=== PATIENT | male | born 1940 | race Caucasian/White ===

== ENCOUNTER 2016-12-05 20:02 | Emergency (ER) | payer OTHER ==
[~2016-12-05] VITALS: Ht 157.5 cm; Wt 117.4 kg
[~2016-12-05 20:02] MED LIST: ACET-1256 PO; ALBUAER19 INH; AMLO-110 PO; APR50 PO; ASPI81TA28 PO; ATOR-24 PO; CPT50 PO; DOCU100C31 PO; FINA5TAB PO; HYDR-5688 PO; ISOS30TA35 PO; LBT/200 PO; MTML PO; NRV5 PO; NTRGSL/4 UT; OPTOPS OP; PANT40TA PO; POLY335019 PO; TAMS0.4C38 PO; ZNTT/150 PO
[2016-12-05 20:08] VITALS: TEMP 36.5; Ht 157.5 cm; Wt 117.4 kg
[2016-12-05 21:04] LABS: BASO % 1.1 %; BASO ABS # 0.05 K/uL (0-0.2); COMPLETE YES; EOS % 7.5 %; HEMATOCRIT 36.5 % (42-52); IG% 0.2 %; LYMPH % 22.5 %; LYMPH ABS # 1.02 K/uL (1.2-3.4); MEAN CELL VOLUME 90.1 fL (80-100); MEAN CORPUSCULAR HEMOGLOBIN 30.1 pg (25-34); MEAN CORPUSCULAR HGB CONC 33.4 g/dl (32-36); MEAN PLATELET VOLUME 9.6 fL (7.4-10.4); MONO % 15.9 %; NEUT % 52.8 %; PLATELET COUNT 179 K/uL (130-400); RED BLOOD COUNT 4.05 M/uL (4.7-6.1); WHITE BLOOD COUNT 4.53 K/uL (4.8-10.8)
[2016-12-05 21:11] LABS: CALCIUM 8.8 mg/dl (8.5-10.1); CREATININE 0.94 mg/dl (0.60-1.40); POTASSIUM 4.1 mmol/L (3.5-5.1)
--- NOTE | 2016-12-05 21:16 | DIAGNOSTIC IMAGING REPORT ---
CHEST ONE VIEW PORTABLE CLINICAL HISTORY: Dizziness COMPARISON STUDY: 04/23/2016 FINDINGS: The heart is mildly enlarged.. There is a left subclavian single chamber central venous pacemaker. There is a dilated right pulmonary artery suggestive of pulmonary arterial hypertension. There is no focal pulmonary consolidation. Underlying emphysema is suspected. There is central vascular prominence without evidence of overt failure IMPRESSION: 1. Emphysema 2. Enlarged pulmonary artery suggestive of pulmonary arterial hypertension 3. No overt failure. 4. No evidence of lobar consolidation 5. Mild central vascular prominence without evidence of overt failure Electronically signed by: Preston Pérez M.D. 12/05/2016 9:15 PM Dictated Date/Time: 12/05/2016 9:11 PM
--- NOTE | 2016-12-05 21:19 | DIAGNOSTIC IMAGING REPORT ---
CT HEAD WITHOUT CONTRAST (CT) CLINICAL HISTORY: Dizziness COMPARISON STUDY: 10/28/2015 TECHNIQUE: Axial CT of the brain is performed from the vertex to the skull base. IV contrast was not administered for this examination. CT DOSE: 537.48 mGy.cm FINDINGS: No intra or extra-axial mass lesions are visualized. There is no CT evidence of acute cortical infarction. There is no evidence of midline shift. There is no acute hemorrhage. No calvarial fractures are visualized. There is stable left vertebral artery and internal carotid artery calcifications. There are mild white matter hypodensities likely on a small vessel basis. There is no evidence of pathologic ventricular dilatation. There is no evidence of acute sinusitis IMPRESSION: No acute intracranial findings Electronically signed by: Preston Pérez M.D. 12/05/2016 9:17 PM Dictated Date/Time: 12/05/2016 9:16 PM
[2016-12-05 23:10] VITALS: BP 153/100; PULSE 74; O2SAT 95
--- NOTE | 2016-12-06 02:13 | EMERGENCY ROOM VISIT NOTE ---
History Report prepared by Aliya: Adam Lester Under the Supervision of: Dr. Saud Anthony D.O. First contact with patient: 20:41 Chief Complaint: ILLNESS Stated Complaint: GENERAL ILLNESS History of Present Illness The patient is a 76 year old male who presents to the Emergency Room from [facility] with complaints of high blood pressure readings. The patient states that he was sent to the emergency department today due to high blood pressure readings that were taken at [facility] shortly prior to arrival. He claims that when his blood pressure goes up his blood sugar goes down and he gets dizzy. The patient's blood sugars were in the 80-90's today and he was dizzy today. He describes his dizziness as himself spinning. The patient had a normal bowel movement two hours ago. He denies change in vision, fevers, chest pain, shortness of breath, nausea, vomiting, diarrhea, pain with urination, and melena. 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 A total of 10 systems reviewed and were otherwise negative. 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 (21) TIA (transient ischemic attack) (22) Ventral hernia Surgical Problems: (1) H/O esophagogastroduodenoscopy Family History Hypertension Social History Smoking Status: Former Smoker Alcohol Use: none Drug Use: none Marital Status: Housing Status: lives with family Occupation Status: retired Current/Historical Medications Scheduled Acetaminophen (Tylenol), 1,000 MG PO PRN UD Amlodipine Besylate (Amlodipine Besylate), 10 MG PO DAILY@0900 Aspirin (Aspirin Ec), 81 MG PO DAILY Atorvastatin (Lipitor), 40 MG PO QPM Captopril (Capoten), 50 MG PO TID Docusate Sodium (Docusate Sodium), 100 MG PO BID Finasteride (Proscar), 5 MG PO DAILY Hydralazine HCl (Hydralazine HCl), 50 MG PO TID Isosorbide Mononitrate Ext Rel (Imdur Ext Rel), 60 MG PO QAM Labetalol Hcl (Normodyne), 200 MG PO BID Nitroglycerin (Nitrostat), 0.4 MG UT PRN Pantoprazole (Protonix), 40 MG PO DAILY Polyethylene Glycol 3350 (Miralax), 17 GM PO DAILY Psyllium (Konsyl), 1 PKT PO DAILY Ranitidine (Zantac), 150 MG PO BID Tamsulosin Hcl (Flomax), 0.4 MG PO DAILY Scheduled PRN Albuterol Inhaler (Ventolin Inhaler), 2 PUFFS INH QID PRN for SOB/Wheezing Cromolyn Sodium (Ophth) (Opticrom Oph), 1 DROPS OP QID PRN for allergies or itching Hydrocodone/Acetaminophen 5MG/325MG ([place] 5MG/325MG), 1 TAB PO Q4 PRN for Pain Allergies Coded Allergies: Morphine (Verified Allergy, Intermediate, RASH, 12/05/16) PRURITUS [place] (Verified Allergy, Intermediate, Itchy rash, 12/05/16) Oxycodone (Verified Allergy, Intermediate, RASH, 12/05/16) PRURITUS Penicillins (Verified Allergy, Intermediate, HIVES, 12/05/16) Cantaloupe (Verified Allergy, Mild, ITCHY FACE AND BACK, 12/05/16) ITCHY FACE AND BACK Chocolate (Verified Allergy, Mild, NAUSEA, 12/05/16) [place] (Verified Allergy, Mild, ITCHY FACE AND BACK, 12/05/16) Naproxen (Verified Allergy, Unknown, ., 12/05/16) Verapamil (Verified Allergy, Unknown, 12/05/16) White Fish (Verified Allergy, Unknown, CATFISH, 12/05/16) Sulfa Antibiotics (Verified Adverse Reaction, Intermediate, RASH, 12/05/16) Both legs became very swollen and red Furosemide (Unverified Adverse Reaction, Unknown, CAN'T VOID, 12/05/16) Hydrochlorothiazide (Unverified Adverse Reaction, Unknown, CAN'T VOID, 12/05) Physical Exam Vital Signs Date Time Temp Pulse Resp B/P Pulse Ox O2 Delivery O2 Flow Rate FiO2 12/05/16 23:10 74 17 153/100 95 12/05/16 21:49 81 18 157/95 94 Room Air 12/05/16 20:08 36.5 65 22 170/92 95 Room Air Physical Exam GENERAL: Sitting up in bed, hard of hearing. Alert, well appearing, well nourished, no distress, non-toxic EYE EXAM: normal conjunctiva, PERRL and EOM's intact OROPHARYNX: no exudate, no erythema, lips, buccal mucosa, and tongue normal and mucous membranes are moist NECK: supple, no nuchal rigidity, no adenopathy, non-tender LUNGS: Clear to auscultation. Normal chest wall mechanics HEART: no murmurs, S1 normal and S2 normal ABDOMEN: abdomen soft, non-tender, normo-active bowel sounds, no masses, no rebound or guarding. BACK: Back is symmetrical on inspection and there is no deformity, no midline tenderness, no CVA tenderness. SKIN: no rashes and no bruising UPPER EXTREMITIES: upper extremities are grossly normal. LOWER EXTREMITIES: No pitting edema. NEURO EXAM: Normal sensorium, cranial nerves II-XII intact, normal speech, no weakness of arms, no weakness of legs. No drift. Finger to nose intact. Gross sensation intact. Medical Decision & Procedures ER Provider Diagnostic Interpretation: Radiology results as stated below per my review and the radiologist's interpretation: CHEST ONE VIEW PORTABLE CLINICAL HISTORY: Dizziness COMPARISON STUDY: 04/23/2016 FINDINGS: The heart is mildly enlarged.. There is a left subclavian single chamber central venous pacemaker. There is a dilated right pulmonary artery suggestive of pulmonary arterial hypertension. There is no focal pulmonary consolidation. Underlying emphysema is suspected. There is central vascular prominence without evidence of overt failure IMPRESSION: 1. Emphysema 2. Enlarged pulmonary artery suggestive of pulmonary arterial hypertension 3. No overt failure. 4. No evidence of lobar consolidation 5. Mild central vascular prominence without evidence of overt failure Electronically signed by: Preston Pérez M.D. 12/05/2016 9:[address] HEAD WITHOUT CONTRAST (CT) CLINICAL HISTORY: Dizziness COMPARISON STUDY: 10/28/2015 TECHNIQUE: Axial CT of the brain is performed from the vertex to the skull base. IV contrast was not administered for this examination. CT DOSE: 537.48 mGy.cm FINDINGS: No intra or extra-axial mass lesions are visualized. There is no CT evidence of acute cortical infarction. There is no evidence of midline shift. There is no acute hemorrhage. No calvarial fractures are visualized. There is stable left vertebral artery and internal carotid artery calcifications. There are mild white matter hypodensities likely on a small vessel basis. There is no evidence of pathologic ventricular dilatation. There is no evidence of acute sinusitis IMPRESSION: No acute intracranial findings Electronically signed by: Preston Pérez M.D. 12/05/2016 9:17 PM Dictated Date/Time: 12/05/2016 9:16 PM PORTABLE AP UPRIGHT CHEST X-RAY: No focal infiltrate or pneumothorax. Laboratory Results 12/05/16 20:20 Red Blood Count 4.05, Mean Corpuscular Volume 90.1, Mean Corpuscular Hemoglobin 30.1, Mean Corpuscular Hemoglobin Concent 33.4, Mean Platelet Volume 9.6, Neutrophils (%) (Auto) 52.8, Lymphocytes (%) (Auto) 22.5, Monocytes (%) (Auto) 15.9, Eosinophils (%) (Auto) 7.5, Basophils (%) (Auto) 1.1, Neutrophils # (Auto ) 2.39, Lymphocytes # (Auto) 1.02, Monocytes # (Auto) 0.72, Eosinophils # (Auto ) 0.34, Basophils # (Auto) 0.05 12/05/16 20:20 Test 12/05/16 20:20 White Blood Count 4.53 K/uL (4.8-10.8) Red Blood Count 4.05 M/uL (4.7-6.1) Hemoglobin 12.2 g/dL (14.0-18.0) Hematocrit 36.5 % (42-52) Mean Corpuscular Volume 90.1 fL (80-100) Mean Corpuscular Hemoglobin 30.1 pg (25-34) Mean Corpuscular Hemoglobin Concent 33.4 g/dl (32-36) Platelet Count 179 K/uL (130-400) Mean Platelet Volume 9.6 fL (7.4-10.4) Neutrophils (%) (Auto) 52.8 % Lymphocytes (%) (Auto) 22.5 % Monocytes (%) (Auto) 15.9 % Eosinophils (%) (Auto) 7.5 % Basophils (%) (Auto) 1.1 % Neutrophils # (Auto) 2.39 K/uL (1.4-6.5) Lymphocytes # (Auto) 1.02 K/uL (1.2-3.4) Monocytes # (Auto) 0.72 K/uL (0.11-0.59) Eosinophils # (Auto) 0.34 K/uL (0-0.5) Basophils # (Auto) 0.05 K/uL (0-0.2) RDW Standard Deviation 44.9 fL (36.4-46.3) RDW Coefficient of Variation 13.4 % (11.5-14.5) Immature Granulocyte % (Auto) 0.2 % Immature Granulocyte # (Auto) 0.01 K/uL (0.00-0.02) Anion Gap 6.0 mmol/L (3-11) Est Creatinine Clear Calc Drug Dose 74.2 ml/min Estimated GFR () 90.3 Estimated GFR (Non- 77.9 BUN/Creatinine Ratio 29.0 (10-20) Calcium Level 8.8 mg/dl (8.5-10.1) Laboratory results per my review. ECG Indication: other (Hypertension) Rate (beats per minute): 63 Rhythm: other (Ventricularly paced) Findings: LBBB, other (LAD) Comparison ECG Date: 06/24/2016 Change: no significant change ED Course ED COURSE: Vital signs were reviewed and showed normal vitals. The patients medical record was reviewed The above diagnostic studies were performed and reviewed. ED treatments and interventions as stated above. 2042: The patient was evaluated in room A9. A complete history and physical examination was performed. 6: I discussed the case with Scot from "[employer]" his pacer is functioning properly. 2309: I updated the patient on the findings of the case at this time. 2318: Upon reevaluation, the patient is resting in bed.I discussed my findings with the patient and he understands and agrees with the treatment plan. Based on the patients age, coexisting illnesses, exam and lab findings the decision to treat as an outpatient was made. The patient remained stable while under my care. The patient appeared well at the time of discharge. Medical Decision The patient's history was concerning for hypertension. Differential diagnosis: Etiologies such as benign hypertension, hypertensive emergency, cardiovascular pathology, pheochromocytoma, electrolyte abnormality, renal disease, endorgan damage, as well as others were entertained. Patient is a 76-year-old male who presents the ER for hypertension, dizziness and blood sugars in the 80s to 90s. He is not diabetic and notes that he just checks his blood sugars. Recently he has noted them to be in the 80s to 90s. Systolic pressures have been in the 170s. Patient notes that he does get intermittently dizzy. He thinks it is associated with his blood pressure and low blood sugars. Patient has no other complaints. He is completely neurologically intact. CT head was negative. Labs including CBC and BMP were unremarkable. EKG was unchanged. Pacemaker was interrogated and showed no apparent arrhythmias. Patient was updated in regards to his findings and was discharged asymptomatically. Discussed with Pt concerning signs and symptoms to watch out for. Pt was instructed to follow up with their PCP and discussed with the patient their option to return to the ED at anytime for persistent or worsening symptoms. The appropriate anticipatory guidance and out-patient management, including indications for return to the emergency department, were explained at length to the patient and understood. Impression Primary Impression: HTN (hypertension) Additional Impression: Dizziness Scribe Attestation The scribe's documentation has been prepared under my direction and personally reviewed by me in its entirety. I confirm that the note above accurately reflects all work, treatment, procedures, and medical decision making performed by me. Departure Information Dispostion Home / Self-Care Referrals Winsome Hernandez M.D. (MEDICAL) (PCP) Forms HOME CARE DOCUMENTATION FORM, IMPORTANT VISIT INFORMATION, WORK / SCHOOL INSTRUCTIONS Patient Instructions My [facility] Additional Instructions Please follow up with your primary care doctor with in the next 24 hours. Any worsening of your symptoms, please return to the ED immediately. This includes change in vision, weakness, passing out, confusion, fevers greater than 100.4, or any other concerning signs or symptoms from your standpoint. Please follow up with your primary care doctor in regards to your hypertension. Problem Qualifiers Primary Impression: HTN (hypertension) Hypertension type: unspecified secondary hypertension Qualified Codes: I15.9 - Secondary hypertension, unspecified
== END 2016-12-05 23:11 | disposition home or self-care (01) ==
LOC: EDBD 20:02 → C.EDA 20:03
DX: I15.9 Secondary hypertension, unspecified (principal); R42 Dizziness and giddiness; I48.91 Unspecified atrial fibrillation; J45.909 Unspecified asthma, uncomplicated; N40.0 Benign prostatic hyperplasia without lower urinary tract symptoms; I25.10 Atherosclerotic heart disease of native coronary artery without angina pectoris; Z95.0 Presence of cardiac pacemaker; I50.9 Heart failure, unspecified; N18.3 Chronic kidney disease, stage 3 (moderate); K86.1 Other chronic pancreatitis; K57.30 Diverticulosis of large intestine without perforation or abscess without bleeding; E78.5 Hyperlipidemia, unspecified; K21.9 Gastro-esophageal reflux disease without esophagitis; E66.01 Morbid (severe) obesity due to excess calories; Z86.73 Personal history of transient ischemic attack (TIA), and cerebral infarction without residual deficits; Z82.49 Family history of ischemic heart disease and other diseases of the circulatory system; Z79.82 Long term (current) use of aspirin; Z79.899 Other long term (current) drug therapy

== ENCOUNTER 2018-02-28 08:26 | Inpatient (IN) | payer OTHER ==
[~2018-02-28] VITALS: Ht 170.2 cm; Wt 117.2 kg
[~2018-02-28 08:26] MED LIST changes: -AMLO-110 PO; +RANI150T85 PO; -ZNTT/150 PO
[2018-02-28] MEDS ORDERED: SODIUM CHLORIDE 0.9% 1000ML 1,000 ML IV STA (08:42)
[2018-02-28 08:53] LABS: BASO % 0.6 %; BASO ABS # 0.03 K/uL (0-0.2); EOS % 2.3 %; EOS ABS # 0.12 K/uL (0-0.5); HEMATOCRIT 36.1 % (42-52); IG# 0.01 K/uL (0.00-0.02); LYMPH % 17.4 %; LYMPH ABS # 0.92 K/uL (1.2-3.4); MEAN CELL VOLUME 92.8 fL (80-100); MEAN CORPUSCULAR HEMOGLOBIN 30.8 pg (25-34); MEAN CORPUSCULAR HGB CONC 33.2 g/dl (32-36); MEAN PLATELET VOLUME 10.4 fL (7.4-10.4); MONO % 6.6 %; MONO ABS # 0.35 K/uL (0.11-0.59); NEUT % 72.9 %; NEUT ABS # 3.86 K/uL (1.4-6.5); PLATELET COUNT 162 K/uL (130-400); RED CELL DISTRIBUTION WIDTH CV 14.4 % (11.5-14.5); RED CELL DISTRIBUTION WIDTH SD 48.8 fL (36.4-46.3); WHITE BLOOD COUNT 5.29 K/uL (4.8-10.8)
[2018-02-28 09:01] LABS: PTT PATIENT 23.7 SECONDS (21.0-31.0)
[2018-02-28 09:20] LABS: ALBUMIN 3.9 gm/dl (3.4-5.0); ALKALINE PHOSPHATASE 75 U/L (45-117); ALT/SGPT 16 U/L (12-78); AST/SGOT 15 U/L (15-37); BLOOD UREA NITROGEN 19 mg/dl (7-18); CARBON DIOXIDE 26 mmol/L (21-32); CKMB 1.5 ng/ml (0.5-3.6); CREATININE 1.11 mg/dl (0.60-1.40); GLUCOSE 126 mg/dl (70-99); LIPASE 174 U/L (73-393); POTASSIUM 3.8 mmol/L (3.5-5.1); SODIUM 140 mmol/L (136-145); TOTAL PROTEIN 7.6 gm/dl (6.4-8.2)
--- NOTE | 2018-02-28 09:24 | DIAGNOSTIC IMAGING REPORT ---
CHEST ONE VIEW PORTABLE CLINICAL HISTORY: Evaluate Fever/Sepsis COMPARISON STUDY: 12/05/2016 FINDINGS: Findings of developing congestive failure versus pulmonary edema. Increased prominence of the central pulmonary vasculature. Diaphragms smooth. Permanent unipolar cardiac pacemaker. IMPRESSION: Congestive heart failure The above report was generated using voice recognition software. It may contain grammatical, syntax or spelling errors. Electronically signed by: Adrián Ponce M.D. 02/28/2018 9:23 AM Dictated Date/Time: 02/28/2018 9:23 AM
--- NOTE | 2018-02-28 09:24 | DIAGNOSTIC IMAGING REPORT ---
HEAD WITHOUT CONTRAST (CT) CLINICAL HISTORY: 77 years-old Male with Evaluate Fever/Sepsis. Acute fever with sepsis and headache TECHNIQUE: Multiple axial CT images of the head were obtained without contrast. A dose lowering technique was utilized adhering to the principles of ALARA. CT DOSE: 1038.11 mGy.cm COMPARISON: CT head 12/05/2016 FINDINGS: Motion degraded exam without acute intracranial hemorrhage, midline shift, intracranial mass, hydrocephalus, or abnormal extra-axial collection. Age-related involutional changes. Senescent calcifications of the lentiform nuclei. Cerebral vascular calcifications also noted. Ill-defined low-attenuation about the periventricular white matter suggests chronic microvascular ischemic changes. There is a focal area of ill-defined decreased attenuation with blurring of the klein-white interface and mild sulcal effacement involving the right frontal lobe measuring 3.0 x 2.6 cm, image 23 series 2 with additional questioned ill-defined area of decreased density involving the right temporal lobe. The calvarium is intact. The paranasal sinuses, mastoid air cells, and middle ear cavities are clear. IMPRESSION: 1. Motion degraded exam. 2. Ill-defined area of decreased attenuation with blurring of the klein-white interface involves the right frontal and temporal lobes suggests acute infarction with cytotoxic edema and mild sulcal effacement. No discrete hemorrhage, or midline shift. 3. Atrophy with chronic microvascular ischemic changes. The above report was generated using voice recognition software. It may contain grammatical, syntax or spelling errors. Electronically signed by: Bryan Jarvis M.D. 02/28/2018 9:22 AM Dictated Date/Time: 02/28/2018 9:18 AM
--- NOTE | 2018-02-28 09:47 | DIAGNOSTIC IMAGING REPORT ---
ABDOMEN AND PELVIS CT WITHOUT CONTRAST CT DOSE: 2109.01 mGy.cm HISTORY: Evaluate Fever/Sepsis INCLUDE PELVIS PER DR MERINO TECHNIQUE: Multiaxial CT images of the abdomen and pelvis were performed without contrast. A dose lowering technique was utilized adhering to the principles of ALARA. COMPARISON STUDY: Abdomen and pelvis CT 10/27/2015. FINDINGS: Right basilar linear densities favor scarring or atelectasis. This remains unchanged. No pneumoperitoneum. No pneumatosis. No suspicious lytic or blastic osseous lesions. A pacemaker wire is noted. The heart is mildly enlarged. Moderate-sized fat-containing umbilical hernia, unchanged. Multiple small gallstones. No gallbladder wall thickening. Duplicated right renal collecting system. Punctate stone within the lower pole the right kidney. Stable small peripelvic cyst within the right kidney which measures 14 mm. There is a left retroaortic renal vein. No ureteral stones. No hydronephrosis. The unenhanced spleen, pancreas, and adrenal glands are unremarkable. Stable 1.5 cm hypodense lesion within the left hepatic lobe. This is incompletely characterized on this noncontrast study but favors a cyst. No retroperitoneal lymphadenopathy. Normal bladder. Suboptimal evaluation for bowel pathology due to the lack of intravenous and oral contrast. However, there is no definite bowel wall thickening or obstruction. Normal appendix. There is a partially visualized 13 cm subcutaneous fluid collection within the lateral aspect of the right hip. IMPRESSION: 1. No bowel wall thickening or obstruction. 2. Right-sided nephrolithiasis. No ureteral stones. No hydronephrosis. 3. Cholelithiasis. 4. Normal appendix. 5. No change in the moderate size fat-containing umbilical hernia. 6. Subcutaneous fluid collection along the lateral aspect of the right hip. This is only partially visualized but was likely present on the 2016 examination. Therefore, this is of doubtful clinical significance and favors a seroma or lymphocele. Electronically signed by: Facundo White M.D. 02/28/2018 9:46 AM Dictated Date/Time: 02/28/2018 9:31 AM
--- NOTE | 2018-02-28 11:07 | EMERGENCY ROOM VISIT NOTE ---
History Report prepared by Aliya: Carly Feng Under the Supervision of: Dr. Josias Rose D.O. First contact with patient: 08:32 Stated Complaint: CONFUSION History of Present Illness The patient is a 77 year old male who presents to the Emergency Room with persistent altered mental status starting this morning. The patient presents to the ED by EMS from home. They report that the patient is usually talkative and not confused. The history is limited secondary to the patient's altered mental status. Source of History: EMS History Limited By: AMS Onset: this morning Position: other (mental status) Quality: other (altered) Timing: other (persistent) Review of Systems See HPI for pertinent positives & negatives. A total of 10 systems reviewed and were otherwise negative. 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 (15) Dyslipidemia (16) Gastroesophageal reflux disease (17) H/O hemorrhoids (18) Morbid Obesity (19) Pre-diabetes (20) Tachy-esdras syndrome (21) TIA (transient ischemic attack) (22) Ventral hernia Surgical Problems: (1) H/O esophagogastroduodenoscopy Family History Hypertension Social History Smoking Status: Former Smoker Alcohol Use: none Drug Use: none Marital Status: Housing Status: lives with family Occupation Status: retired Current/Historical Medications Scheduled Acetaminophen (Tylenol), 1,000 MG PO PRN UD Amlodipine Besylate (Amlodipine Besylate), 10 MG PO DAILY@0900 Aspirin (Aspirin Ec), 81 MG PO DAILY Atorvastatin (Lipitor), 40 MG PO QPM Captopril (Capoten), 50 MG PO TID Docusate Sodium (Docusate Sodium), 100 MG PO BID Finasteride (Proscar), 5 MG PO DAILY Hydralazine HCl (Hydralazine HCl), 50 MG PO TID Isosorbide Mononitrate Ext Rel (Imdur Ext Rel), 60 MG PO QAM Labetalol Hcl (Normodyne), 200 MG PO BID Nitroglycerin (Nitrostat), 0.4 MG UT PRN Pantoprazole (Protonix), 40 MG PO DAILY Polyethylene Glycol 3350 (Miralax), 17 GM PO DAILY Tamsulosin Hcl (Flomax), 0.4 MG PO DAILY Scheduled PRN Cromolyn Sodium (Ophth) (Opticrom Oph), 1 DROPS OP QID PRN for allergies or itching Allergies Coded Allergies: Morphine (Verified Allergy, Intermediate, RASH, 12/05/16) PRURITUS [place] (Verified Allergy, Intermediate, Itchy rash, 12/05/16) Oxycodone (Verified Allergy, Intermediate, RASH, 12/05/16) PRURITUS Penicillins (Verified Allergy, Intermediate, HIVES, 12/05/16) Cantaloupe (Verified Allergy, Mild, ITCHY FACE AND BACK, 12/05/16) ITCHY FACE AND BACK Chocolate (Verified Allergy, Mild, NAUSEA, 12/05/16) Ruso (Verified Allergy, Mild, ITCHY FACE AND BACK, 12/05/16) Naproxen (Verified Allergy, Unknown, ., 12/05/16) Verapamil (Verified Allergy, Unknown, 12/05/16) White Fish (Verified Allergy, Unknown, CATFISH, 12/05/16) Sulfa Antibiotics (Verified Adverse Reaction, Intermediate, RASH, 12/05/16) Both legs became very swollen and red Furosemide (Unverified Adverse Reaction, Unknown, CAN'T VOID, 12/05/16) Hydrochlorothiazide (Unverified Adverse Reaction, Unknown, CAN'T VOID, 12/05) Physical Exam Vital Signs Date Time Temp Pulse Resp B/P (MAP) Pulse Ox O2 Delivery O2 Flow Rate FiO2 02/28/18 10:31 81 21 173/116 93 Room Air 02/28/18 10:12 65 16 184/97 94 Room Air 02/28/18 09:21 78 18 187/101 92 Room Air 02/28/18 09:04 37.1 98 20 190/97 93 Room Air 02/28/18 09:04 93 Room Air 02/28/18 08:46 79 Physical Exam CONSTITUTIONAL/VITAL SIGNS: Reviewed / noted above. GENERAL: Non-toxic in appearance. INTEGUMENTARY: Warm, dry, and [place]. HEAD: Normocephalic. EYES: without scleral icterus or trauma. ENT/OROPHARYNX: Tongue is slightly dry. LYMPHADENOPATHY/NECK: Is supple without lymphadenopathy or meningismus. RESPIRATORY: Lungs clear and equal. CARDIOVASCULAR: Regular rate and rhythm. GI/ABDOMEN: Soft and diffusely tender. No organomegaly or pulsatile mass. No rebound or guarding. Normal bowel sounds. EXTREMITIES: Warm and well perfused. BACK: No CVA tenderness. NEUROLOGICAL: Moves all extremities with purpose, nonverbal, does not follow commands. PSYCHIATRIC: normal affect. MUSCULOSKELETAL: Normally developed with good muscle tone. Medical Decision & Procedures ER Provider Diagnostic Interpretation: X ray results and stated below per my interpretation and radiology interpretation. Radiology results as stated below per my review and radiologist interpretation: CHEST ONE VIEW PORTABLE CLINICAL HISTORY: Evaluate Fever/Sepsis COMPARISON STUDY: 12/05/2016 FINDINGS: Findings of developing congestive failure versus pulmonary edema. Increased prominence of the central pulmonary vasculature. Diaphragms smooth. Permanent unipolar cardiac pacemaker. IMPRESSION: Congestive heart failure The above report was generated using voice recognition software. It may contain grammatical, syntax or spelling errors. Electronically signed by: Adrián Ponce M.D. 02/28/2018 9:23 AM Dictated Date/Time: 02/28/2018 9:23 AM HEAD WITHOUT CONTRAST (CT) CLINICAL HISTORY: 77 years-old Male with Evaluate Fever/Sepsis. Acute fever with sepsis and headache TECHNIQUE: Multiple axial CT images of the head were obtained without contrast. A dose lowering technique was utilized adhering to the principles of ALARA. CT DOSE: 1038.11 mGy.cm COMPARISON: CT head 12/05/2016 FINDINGS: Motion degraded exam without acute intracranial hemorrhage, midline shift, intracranial mass, hydrocephalus, or abnormal extra-axial collection. Age-related involutional changes. Senescent calcifications of the lentiform nuclei. Cerebral vascular calcifications also noted. Ill-defined low-attenuation about the periventricular white matter suggests chronic microvascular ischemic changes. There is a focal area of ill-defined decreased attenuation with blurring of the klein-white interface and mild sulcal effacement involving the right frontal lobe measuring 3.0 x 2.6 cm, image 23 series 2 with additional questioned ill-defined area of decreased density involving the right temporal lobe. The calvarium is intact. The paranasal sinuses, mastoid air cells, and middle ear cavities are clear. IMPRESSION: 1. Motion degraded exam. 2. Ill-defined area of decreased attenuation with blurring of the klein-white interface involves the right frontal and temporal lobes suggests acute infarction with cytotoxic edema and mild sulcal effacement. No discrete hemorrhage, or midline shift. 3. Atrophy with chronic microvascular ischemic changes. The above report was generated using voice recognition software. It may contain grammatical, syntax or spelling errors. Electronically signed by: Bryan Jarvis M.D. 02/28/2018 9:22 AM Dictated Date/Time: 02/28/2018 9:18 AM ABDOMEN AND PELVIS CT WITHOUT CONTRAST CT DOSE: 2109.01 mGy.cm HISTORY: Evaluate Fever/Sepsis INCLUDE PELVIS PER DR ROSE TECHNIQUE: Multiaxial CT images of the abdomen and pelvis were performed without contrast. A dose lowering technique was utilized adhering to the principles of ALARA. COMPARISON STUDY: Abdomen and pelvis CT 10/27/2015. FINDINGS: Right basilar linear densities favor scarring or atelectasis. This remains unchanged. No pneumoperitoneum. No pneumatosis. No suspicious lytic or blastic osseous lesions. A pacemaker wire is noted. The heart is mildly enlarged. Moderate-sized fat-containing umbilical hernia, unchanged. Multiple small gallstones. No gallbladder wall thickening. Duplicated right renal collecting system. Punctate stone within the lower pole the right kidney. Stable small peripelvic cyst within the right kidney which measures 14 mm. There is a left retroaortic renal vein. No ureteral stones. No hydronephrosis. The unenhanced spleen, pancreas, and adrenal glands are unremarkable. Stable 1.5 cm hypodense lesion within the left hepatic lobe. This is incompletely characterized on this noncontrast study but favors a cyst. No retroperitoneal lymphadenopathy. Normal bladder. Suboptimal evaluation for bowel pathology due to the lack of intravenous and oral contrast. However, there is no definite bowel wall thickening or obstruction. Normal appendix. There is a partially visualized 13 cm subcutaneous fluid collection within the lateral aspect of the right hip. IMPRESSION: 1. No bowel wall thickening or obstruction. 2. Right-sided nephrolithiasis. No ureteral stones. No hydronephrosis. 3. Cholelithiasis. 4. Normal appendix. 5. No change in the moderate size fat-containing umbilical hernia. 6. Subcutaneous fluid collection along the lateral aspect of the right hip. This is only partially visualized but was likely present on the 2016 examination. Therefore, this is of doubtful clinical significance and favors a seroma or lymphocele. Electronically signed by: Facundo White M.D. 02/28/2018 9:46 AM Dictated Date/Time: 02/28/2018 9:31 AM Laboratory Results 02/28/18 08:35 Red Blood Count 3.89, Mean Corpuscular Volume 92.8, Mean Corpuscular Hemoglobin 30.8, Mean Corpuscular Hemoglobin Concent 33.2, Mean Platelet Volume 10.4, Neutrophils (%) (Auto) 72.9, Lymphocytes (%) (Auto) 17.4, Monocytes (%) (Auto) 6.6, Eosinophils (%) (Auto) 2.3, Basophils (%) (Auto) 0.6, Neutrophils # (Auto) 3.86, Lymphocytes # (Auto) 0.92, Monocytes # (Auto) 0.35, Eosinophils # (Auto) 0.12, Basophils # (Auto) 0.03 02/28/18 08:35 Test 02/28/18 08:35 02/28/18 08:43 02/28/18 08:48 02/28/18 09:37 White Blood Count 5.29 K/uL (4.8-10.8) Red Blood Count 3.89 M/uL (4.7-6.1) Hemoglobin 12.0 g/dL (14.0-18.0) Hematocrit 36.1 % (42-52) Mean Corpuscular Volume 92.8 fL (80-100) Mean Corpuscular Hemoglobin 30.8 pg (25-34) Mean Corpuscular Hemoglobin Concent 33.2 g/dl (32-36) Platelet Count 162 K/uL (130-400) Mean Platelet Volume 10.4 fL (7.4-10.4) Neutrophils (%) (Auto) 72.9 % Lymphocytes (%) (Auto) 17.4 % Monocytes (%) (Auto) 6.6 % Eosinophils (%) (Auto) 2.3 % Basophils (%) (Auto) 0.6 % Neutrophils # (Auto) 3.86 K/uL (1.4-6.5) Lymphocytes # (Auto) 0.92 K/uL (1.2-3.4) Monocytes # (Auto) 0.35 K/uL (0.11-0.59) Eosinophils # (Auto) 0.12 K/uL (0-0.5) Basophils # (Auto) 0.03 K/uL (0-0.2) RDW Standard Deviation 48.8 fL (36.4-46.3) RDW Coefficient of Variation 14.4 % (11.5-14.5) Immature Granulocyte % (Auto) 0.2 % Immature Granulocyte # (Auto) 0.01 K/uL (0.00-0.02) Prothrombin Time 10.0 SECONDS (9.0-12.0) Prothromb Time International Ratio 1.0 (0.9-1.1) Activated Partial Thromboplast Time 23.7 SECONDS (21.0-31.0) Partial Thromboplastin Ratio 0.9 Anion Gap 7.0 mmol/L (3-11) Est Creatinine Clear Calc Drug Dose 78.4 ml/min Estimated GFR () 73.3 Estimated GFR (Non- 63.3 BUN/Creatinine Ratio 17.5 (10-20) Calcium Level 9.0 mg/dl (8.5-10.1) Total Bilirubin 0.6 mg/dl (0.2-1) Direct Bilirubin 0.1 mg/dl (0-0.2) Aspartate Amino Transf (AST/SGOT) 15 U/L (15-37) Alanine Aminotransferase (ALT/SGPT) 16 U/L (12-78) Alkaline Phosphatase 75 U/L (45-117) Total Creatine Kinase 80 U/L (39-308) Creatine Kinase MB 1.5 ng/ml (0.5-3.6) Creatine Kinase MB Ratio 1.9 (0-3.0) Troponin I < 0.015 ng/ml (0-0.045) Total Protein 7.6 gm/dl (6.4-8.2) Albumin 3.9 gm/dl (3.4-5.0) Lipase 174 U/L (73-393) Thyroid Stimulating Hormone (TSH) 0.957 uIu/ml (0.300-4.500) Bedside Lactic Acid Venous 0.88 mmol/L (0.90-1.70) Urine Color YELLOW Urine Appearance CLEAR (CLEAR) Urine pH 7.5 (4.5-7.5) Urine Specific [place] 1.012 (1.000-1.030) Urine Protein 1+ (NEG) Urine Glucose (UA) NEG (NEG) Urine Ketones NEG (NEG) Urine Occult Blood TRACE (NEG) Urine Nitrite NEG (NEG) Urine Bilirubin NEG (NEG) Urine Urobilinogen NEG (NEG) Urine Leukocyte Esterase NEG (NEG) Urine WBC (Auto) 0 /hpf (0-5) Urine RBC (Auto) 0-4 /hpf (0-4) Urine Hyaline Casts (Auto) 0 /lpf (0-5) Urine Epithelial Cells (Auto) 5-10 /lpf (0-5) Urine Bacteria (Auto) NEG (NEG) Urine Opiates Screen NEG (NEG) Urine Methadone, Qualitative NEG (NEG) Urine Barbiturates NEG (NEG) Urine Phencyclidine (PCP) Level NEG (NEG) Ur Amphetamine/Methamphetamine NEG (NEG) MDMA (Ecstasy) Screen NEG (NEG) Urine Benzodiazepines Screen NEG (NEG) Urine Cocaine Metabolite NEG (NEG) Urine Marijuana (THC) NEG (NEG) Ammonia 22.9 umol/L (11-32) Ethyl Alcohol mg/dL < 3.0 mg/dl (0-3) Laboratory results as stated above per my review. Medications Administered Medications (Trade) Dose Ordered Sig/[place] Route Start Time Stop Time Status Last Admin Dose Admin Sodium Chloride 1,000 ml @ 500 mls/hr Q2H STAT IV 02/28/18 08:42 02/28/18 10:41 DC 02/28/18 08:42 500 MLS/HR ECG Per My Interpretation Indication: altered mental status Rate (beats per minute): 68 Rhythm: atrial fibrillation Findings: paced rhythm (ventricular) Comparison ECG Date: 05-Dec-2016 Change: Intermittent pacing is new. ED Course 0836: Previous medical records were reviewed. The patient was evaluated in room B6. A complete history and physical examination was performed. 0842: Sodium Chloride 1000 ml @ 500 mls/hr IV. 1046: On reevaluation, the patient is stable. I discussed the results and findings with family. They verbalized agreement of the treatment plan. The patient will be evaluated for further management and care. 1052: I discussed the patient's case with Mackenzie Diaz PA-C [facility] hospitalist. The patient will be evaluated for further treatment and disposition. Medical Decision Differential includes acute coronary syndrome, myocardial infarction, CVA, TIA, anemia, infection, pneumonia, UTI, pyelonephritis, poor nutrition, dehydration, electrolyte disturbance, hypoglycemia. Is a 69-year-old male who presents to the ED with a chief complaint of altered mental status. The patient is unable to provide a history. He does move all 4 extremities. He opens his eyes spontaneously. He is nonverbal does not appear to understand or follow commands. A CT scan of his brain reveals an acute infarct of the right frontal and temporal lobes with some cytotoxic edema. A chest x-ray reveals some findings suggesting some congestive heart failure. The patient does not appear to be in pulmonary edema at this time. CT scan of the abdomen pelvis did not show acute process. Blood work was unremarkable. The patient did initially receive some IV fluids as he appeared to be clinically dehydrated with dry mucous membranes. His BUN was 19. The family eventually presented and stated that he was last known well last night around 10 PM. He was found this morning by family member. The patient will be seen by the hospitalist service for further inpatient evaluation and care. Medication Reconcilliation Current Medication List: was personally reviewed by me Blood Pressure Screening Patient's blood pressure: Elevated blood pressure Referred to hospitalist Consults Time Called: 1051 Consulting Physician: MADELAINE Ramon hospitalist Returned Call: [phone] Discussed the patient's case. The patient will be evaluated for further treatment and disposition. Impression Primary Impression: Stroke Scribe Attestation The scribe's documentation has been prepared under my direction and personally reviewed by me in its entirety. I confirm that the note above accurately reflects all work, treatment, procedures, and medical decision making performed by me. Departure Information Dispostion Being Evaluated By Hospitalist Referrals Winsome Hernandez M.D. (MEDICAL) (PCP) Stroke History Time Last Known Well last night around 2200 Stroke t-PA Criteria Reviewed Does NOT meet criteria for t-PA Reason t-PA Not Given Treatment not indicated
[2018-02-28] MEDS ORDERED: PHARMACIST DISCHARGE MED REC CONSULT PRN (11:45)
[2018-02-28] MEDS ORDERED: LABETALOL HCL IV 5 MG/ML 20ML IV STA ×2 (12:11→16:02)
[2018-02-28] MEDS ORDERED: RANI150T85 PO (12:42)
[2018-02-28 13:03] VITALS: BMI 44.2
--- NOTE | 2018-02-28 13:55 | Neurology Consultation ---
Neurology Consultation Date of Consultation: Feb 28, 2018. Attending Physician: Fady Christina DO Primary Care Physician: Winsome Hernandez M.D. (MEDICAL) Reason for Consultation: CVA R frontal/temporal History of Present Illness Source: patient Chaka is a 77 year old male who presented to ED with change MS. He has a PMH VIANEY, HTN, CAD afib, esdras/tachy syndrome with pacemaker, DL, TIA, DJD, history of polio as a child. 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 He is complaint with his other medications but he had refused any anticoagulation therapy for his afib. He was started on aspirin in the ED but no tPa was given. His blood pressure was systolic 200 on arrival. He is currently lying in bed and is not cooperative. unable to obtain ROS at this time Past Medical/Surgical History Medical Problems: (1) VIANEY (acute kidney injury) Status: Acute (2) Contusion of multiple sites Status: Acute (3) Elevated troponin Status: Acute (4) Flank pain Status: Acute (5) HTN (hypertension) Status: Acute (6) Left leg cellulitis Status: Acute (7) Left sided chest pain Status: Acute (8) Lumbar strain Status: Acute (9) Poorly-controlled hypertension Status: Acute (10) Stroke Status: Acute Social History Smoking Status: Former smoker Smokeless Tobacco Use: No Drug Use: none Marital Status: Housing Status: lives with family Occupation Status: retired Allergies Coded Allergies: Morphine (Verified Allergy, Intermediate, RASH, 12/05/16) PRURITUS [place] (Verified Allergy, Intermediate, Itchy rash, 12/05/16) Oxycodone (Verified Allergy, Intermediate, RASH, 12/05/16) PRURITUS Penicillins (Verified Allergy, Intermediate, HIVES, 12/05/16) Cantaloupe (Verified Allergy, Mild, ITCHY FACE AND BACK, 12/05/16) ITCHY FACE AND BACK Chocolate (Verified Allergy, Mild, NAUSEA, 12/05/16) [place] (Verified Allergy, Mild, ITCHY FACE AND BACK, 12/05/16) Naproxen (Verified Allergy, Unknown, ., 12/05/16) Verapamil (Verified Allergy, Unknown, 12/05/16) White Fish (Verified Allergy, Unknown, CATFISH, 12/05/16) Sulfa Antibiotics (Verified Adverse Reaction, Intermediate, RASH, 12/05/16) Both legs became very swollen and red Furosemide (Unverified Adverse Reaction, Unknown, CAN'T VOID, 12/05/16) Hydrochlorothiazide (Unverified Adverse Reaction, Unknown, CAN'T VOID, 12/05) Current Inpatient Medications Current Inpatient Medications Medications (Trade) Dose Ordered Sig/Barry Route Start Time Stop Time Status Last Admin Dose Admin Miscellaneous Information (Pharmacist Discharge Med Rec Consult) 1 ea UD PRN N/A 02/28/18 11:45 03/30/18 11:44 Physical Exam Vital Signs (Past 24 Hrs): Date Time Temp Pulse Resp B/P (MAP) Pulse Ox O2 Delivery O2 Flow Rate FiO2 02/28/18 13:03 Room Air 02/28/18 12:43 71 21 191/106 94 02/28/18 12:36 76 25 92 02/28/18 12:32 191/106 02/28/18 12:31 76 20 94 02/28/18 12:26 70 15 93 02/28/18 12:21 75 21 200/110 93 02/28/18 12:20 79 21 200/110 92 Room Air 02/28/18 12:16 65 16 94 02/28/18 12:11 72 20 92 02/28/18 12:06 61 16 92 02/28/18 12:01 66 16 93 02/28/18 11:56 66 17 92 02/28/18 11:51 64 20 92 02/28/18 11:46 76 15 92 02/28/18 11:41 62 16 92 02/28/18 11:36 64 16 91 02/28/18 11:31 66 19 91 02/28/18 11:26 62 17 89 02/28/18 11:21 75 25 93 02/28/18 11:16 76 22 93 02/28/18 11:11 72 24 94 02/28/18 11:06 76 19 93 02/28/18 11:02 219/109 02/28/18 11:01 86 24 92 02/28/18 11:01 67 19 219/109 92 Room Air 02/28/18 10:56 64 19 94 02/28/18 10:51 62 17 93 02/28/18 10:46 66 23 93 02/28/18 10:41 70 20 95 02/28/18 10:36 69 22 95 02/28/18 10:32 173/116 02/28/18 10:31 81 21 173/116 93 Room Air 02/28/18 10:31 64 16 94 02/28/18 10:26 60 15 94 02/28/18 10:21 64 19 94 02/28/18 10:16 63 20 92 02/28/18 10:13 184/97 02/28/18 10:12 65 16 184/97 94 Room Air 02/28/18 10:11 79 31 96 02/28/18 10:06 67 19 95 02/28/18 10:01 63 18 92 02/28/18 09:56 67 20 92 02/28/18 09:51 71 24 96 02/28/18 09:46 72 23 97 02/28/18 09:41 65 23 93 02/28/18 09:36 64 16 95 02/28/18 09:31 70 20 93 02/28/18 09:26 67 16 92 02/28/18 09:22 187/101 02/28/18 09:21 78 18 187/101 92 Room Air 02/28/18 09:21 83 22 91 02/28/18 09:04 37.1 98 20 190/97 93 Room Air 02/28/18 09:04 93 Room Air 02/28/18 08:56 65 19 96 02/28/18 08:51 63 24 95 02/28/18 08:46 76 15 90 02/28/18 08:46 79 02/28/18 08:30 190/97 Physical Exam: Constitutional:, appearance disheveled, morbidly obese Ears, Nose, Mouth and Throat: mucous membranes moist, no injection and skin normal, eyes normal Cardiovascular: irregular Respiratory: course breath sounds Musculoskeletal: deformity of by laterally LE with non pitting edema Skin: no stigmata of neurocutaneous disease noted and normal and intact Eyes: unable to examine NEUROLOGIC EXAMINATION: Mental status: Alert with stimulation but not cooperative Reflexes: Plantar responses were flexor. Gait/Stance: Posture lying in bed Motor: unable to assess Strength: squeezes bilaterally with hands and pulls, but no further examination of strength- patient uncooperative. moves LE spontaneously Laboratory Results Past 24 Hours: 02/28/18 08:35 Red Blood Count 3.89, Mean Corpuscular Volume 92.8, Mean Corpuscular Hemoglobin 30.8, Mean Corpuscular Hemoglobin Concent 33.2, Mean Platelet Volume 10.4, Neutrophils (%) (Auto) 72.9, Lymphocytes (%) (Auto) 17.4, Monocytes (%) (Auto) 6.6, Eosinophils (%) (Auto) 2.3, Basophils (%) (Auto) 0.6, Neutrophils # (Auto) 3.86, Lymphocytes # (Auto) 0.92, Monocytes # (Auto) 0.35, Eosinophils # (Auto) 0.12, Basophils # (Auto) 0.03 02/28/18 08:35 Test 02/28/18 08:35 02/28/18 08:43 02/28/18 08:48 02/28/18 09:37 White Blood Count 5.29 K/uL (4.8-10.8) Red Blood Count 3.89 M/uL (4.7-6.1) Hemoglobin 12.0 g/dL (14.0-18.0) Hematocrit 36.1 % (42-52) Mean Corpuscular Volume 92.8 fL (80-100) Mean Corpuscular Hemoglobin 30.8 pg (25-34) Mean Corpuscular Hemoglobin Concent 33.2 g/dl (32-36) Platelet Count 162 K/uL (130-400) Mean Platelet Volume 10.4 fL (7.4-10.4) Neutrophils (%) (Auto) 72.9 % Lymphocytes (%) (Auto) 17.4 % Monocytes (%) (Auto) 6.6 % Eosinophils (%) (Auto) 2.3 % Basophils (%) (Auto) 0.6 % Neutrophils # (Auto) 3.86 K/uL (1.4-6.5) Lymphocytes # (Auto) 0.92 K/uL (1.2-3.4) Monocytes # (Auto) 0.35 K/uL (0.11-0.59) Eosinophils # (Auto) 0.12 K/uL (0-0.5) Basophils # (Auto) 0.03 K/uL (0-0.2) RDW Standard Deviation 48.8 fL (36.4-46.3) RDW Coefficient of Variation 14.4 % (11.5-14.5) Immature Granulocyte % (Auto) 0.2 % Immature Granulocyte # (Auto) 0.01 K/uL (0.00-0.02) Prothrombin Time 10.0 SECONDS (9.0-12.0) Prothromb Time International Ratio 1.0 (0.9-1.1) Activated Partial Thromboplast Time 23.7 SECONDS (21.0-31.0) Partial Thromboplastin Ratio 0.9 Anion Gap 7.0 mmol/L (3-11) Est Creatinine Clear Calc Drug Dose 78.4 ml/min Estimated GFR () 73.3 Estimated GFR (Non- 63.3 BUN/Creatinine Ratio 17.5 (10-20) Calcium Level 9.0 mg/dl (8.5-10.1) Total Bilirubin 0.6 mg/dl (0.2-1) Direct Bilirubin 0.1 mg/dl (0-0.2) Aspartate Amino Transf (AST/SGOT) 15 U/L (15-37) Alanine Aminotransferase (ALT/SGPT) 16 U/L (12-78) Alkaline Phosphatase 75 U/L (45-117) Total Creatine Kinase 80 U/L (39-308) Creatine Kinase MB 1.5 ng/ml (0.5-3.6) Creatine Kinase MB Ratio 1.9 (0-3.0) Troponin I < 0.015 ng/ml (0-0.045) Total Protein 7.6 gm/dl (6.4-8.2) Albumin 3.9 gm/dl (3.4-5.0) Lipase 174 U/L (73-393) Thyroid Stimulating Hormone (TSH) 0.957 uIu/ml (0.300-4.500) Bedside Lactic Acid Venous 0.88 mmol/L (0.90-1.70) Urine Color YELLOW Urine Appearance CLEAR (CLEAR) Urine pH 7.5 (4.5-7.5) Urine Specific [place] 1.012 (1.000-1.030) Urine Protein 1+ (NEG) Urine Glucose (UA) NEG (NEG) Urine Ketones NEG (NEG) Urine Occult Blood TRACE (NEG) Urine Nitrite NEG (NEG) Urine Bilirubin NEG (NEG) Urine Urobilinogen NEG (NEG) Urine Leukocyte Esterase NEG (NEG) Urine WBC (Auto) 0 /hpf (0-5) Urine RBC (Auto) 0-4 /hpf (0-4) Urine Hyaline Casts (Auto) 0 /lpf (0-5) Urine Epithelial Cells (Auto) 5-10 /lpf (0-5) Urine Bacteria (Auto) NEG (NEG) Urine Opiates Screen NEG (NEG) Urine Methadone, Qualitative NEG (NEG) Urine Barbiturates NEG (NEG) Urine Phencyclidine (PCP) Level NEG (NEG) Ur Amphetamine/Methamphetamine NEG (NEG) MDMA (Ecstasy) Screen NEG (NEG) Urine Benzodiazepines Screen NEG (NEG) Urine Cocaine Metabolite NEG (NEG) Urine Marijuana (THC) NEG (NEG) Ammonia 22.9 umol/L (11-32) Ethyl Alcohol mg/dL < 3.0 mg/dl (0-3) Imaging CT head- . Motion degraded exam. Ill-defined area of decreased attenuation with blurring of the klein-white interface involves the right frontal and temporal lobes suggests acute infarction with cytotoxic edema and mild sulcal effacement. No discrete hemorrhage, or midline shift. Atrophy with chronic microvascular ischemic changes. CXR- Findings of developing congestive failure versus pulmonary edema. Increased prominence of the central pulmonary vasculature. Diaphragms smooth. Permanent unipolar cardiac pacemaker Impression 77 year old with extensive PMH and acute right frontal and temporal lobe ischemic event Plan 1. aspirin added and plans to start coumadin would bridge with heparin if no contraindications- however may not be a candidate due fall risk post stroke 2. PT/OT speech for discharge needs 3. repeat CT head in am to r/o hemorrhagic conversion 4. MRI -unable due to pacemaker 5. TTE- done pending read 6. carotid doppler- or CTA head and neck- vascular malformations 7. interrogate pacemaker if not done recently 8. full exam once patient is more cooperative 9. liberal blood pressure for 24-48 hours 10. then slowly decrease and optimize HTN, DL, DM LDL <70- lipid profile ordered pending 11. npo for now until more awake and cooperative 12. will order aspirin for now OR 13. will readdress tomorrow further recommendations to follow I have seen and discussed above patient with Dr Nelida Patel, neurology Pt seen and examined. Hx of afib. On exam mildly agitated, r gaze preference, mute, following no commands. Moves L arm slightly less well than R arm. Ct R parietal hypodensity. Impr R MCA infarct, likely embolic. ASA at present, follow -up CT in am, carotids. Will make a decision at that point re short-term anticoagulation. Decision whether or not he will be a long-term anticoagulant candidate will depend on fall risk. Will follow with you, ALEYDA Patel MD
[2018-02-28] MEDS ORDERED: ENALAPRILAT IV 1.25 MG in DEXTROSE 5% 25ML 25 ML IV ONE (14:00)
--- NOTE | 2018-02-28 14:43 | History and Physical ---
History & Physical Date & Time of Service: Feb 28, 2018 at 11:53 Chief Complaint: Confusion Primary Care Physician: Winsome Hernandez M.D. 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 Son and grandson at bedside provides history. Unable to obtain history from patient secondary to current condition. Son was not home at time of the event; however, was told between 7:30 AM-9 AM patient developed, "garbled," speech. Due to change in condition EMS was called and patient was brought to ED. ROS unobtainable from patient. Per family at bedside unaware history of A. fib or oral anticoagulation history, however they do think he has had a history of TIA/ CVA in past. 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 TPA was not given secondary to timing of events unknown. In ED and initial workup revealed ill-defined area of decreased attenuation with blurring of the klein-white interface involves the right frontal and temporal lobes suggests acute infarction without midline shift or hemorrhage, chest x-ray positive for CHF, H/H 12.1 and 36.1, WBC 5.29, platelet count 162, sodium 140, potassium 3.8 , BUN 19, creatinine 1.1, glucose 126, UA negative, troponin negative LA within normal limits, ECG atrial fibrillation, ventricular rate 67 bpm with frequent PVCs. Patient's [facility] chart reviewed in [facility] which those most recent blood work on 02/14/18 A1c 5.7, LDL 74, echo on 01/03/18 EF 55-59%, mild LVH, AV calcified severe stenosis. He is being admitted for further neurologic work up of new CVA. Past Medical/Surgical History Medical Problems: (1) A-fib Status: Chronic (2) Asthma Status: Chronic (3) Benign hypertension Status: Chronic (4) Benign prostatic hyperplasia Status: Chronic (5) CAD (coronary artery disease) Status: Chronic (6) Cardiac pacemaker in situ Status: Chronic (7) CHF (congestive heart failure) Permanent Comment: diastolic, chronic Status: Chronic (8) Chronic Pancreatitis Status: Chronic (9) CKD (chronic kidney disease), stage III Status: Chronic (10) Coronary Atherosclerosis Of [place] Coronary Vessel Permanent Comment: s/p OR 2005 rest echo 08/30/11- normal LVEF dobutamine stress echo 08/30/11- no stress-induced ischemia Status: Chronic (11) Degenerative joint disease (DJD) of hip Status: Chronic (12) Diverticulosis Of Colon With Hemorrhage Status: Resolved (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 (14) Dyslipidemia Status: Chronic (15) Gastroesophageal reflux disease Status: Chronic (16) H/O hemorrhoids Status: Chronic (17) Morbid Obesity Status: Chronic (18) Pre-diabetes Status: Chronic (19) Tachy-frandy syndrome Status: Chronic (20) TIA (transient ischemic attack) Status: Resolved (21) Ventral hernia Status: Chronic Surgical Problems: (1) H/O esophagogastroduodenoscopy Permanent Comment: acid reflux, gastric inflammation, hyperplastic gastric polypi Status: Resolved Family History FH: per family present, remote history of grandmother with CVA, otherwise family history unable to obtain per records Father at 86 and mother at 59, etiology unclear Social History Smoking Status: Former Smoker (Per family no history of smoking) Smokeless Tobacco Use: No Alcohol Use: none Drug Use: none Marital Status: Housing status: lives with family (, 2 sons) Occupational Status: retired Immunizations History of Influenza Vaccine: Yes Influenza Vaccine Date: May 10, 2017 History of Tetanus Vaccine?: Yes Tetanus Immunization Date: Feb 11, 2016 History of Pneumococcal: Yes Pneumococcal Date: Nov 13, 2016 History of Hepatitis B Vaccine: No Allergies Coded Allergies: Morphine (Verified Allergy, Intermediate, RASH, 12/05/16) PRURITUS [place] (Verified Allergy, Intermediate, Itchy rash, 12/05/16) Oxycodone (Verified Allergy, Intermediate, RASH, 12/05/16) PRURITUS Penicillins (Verified Allergy, Intermediate, HIVES, 12/05/16) Cantaloupe (Verified Allergy, Mild, ITCHY FACE AND BACK, 12/05/16) ITCHY FACE AND BACK Chocolate (Verified Allergy, Mild, NAUSEA, 12/05/16) [place] (Verified Allergy, Mild, ITCHY FACE AND BACK, 12/05/16) Naproxen (Verified Allergy, Unknown, ., 12/05/16) Verapamil (Verified Allergy, Unknown, 12/05/16) White Fish (Verified Allergy, Unknown, CATFISH, 12/05/16) Sulfa Antibiotics (Verified Adverse Reaction, Intermediate, RASH, 12/05/16) Both legs became very swollen and red Furosemide (Unverified Adverse Reaction, Unknown, CAN'T VOID, 12/05/16) Hydrochlorothiazide (Unverified Adverse Reaction, Unknown, CAN'T VOID, 12/05) Home Medications Scheduled Acetaminophen (Tylenol), 1,000 MG PO PRN UD Amlodipine Besylate (Amlodipine Besylate), 10 MG PO DAILY@0900 Aspirin (Aspirin Ec), 81 MG PO DAILY Atorvastatin (Lipitor), 40 MG PO QPM Captopril (Capoten), 50 MG PO TID Docusate Sodium (Docusate Sodium), 100 MG PO BID Finasteride (Proscar), 5 MG PO DAILY Hydralazine HCl (Hydralazine HCl), 50 MG PO TID Isosorbide Mononitrate Ext Rel (Imdur Ext Rel), 60 MG PO QAM Labetalol Hcl (Normodyne), 200 MG PO BID Nitroglycerin (Nitrostat), 0.4 MG UT PRN Pantoprazole (Protonix), 40 MG PO DAILY Polyethylene Glycol 3350 (Miralax), 17 GM PO DAILY Ranitidine (Zantac), 150 MG PO BID Tamsulosin Hcl (Flomax), 0.4 MG PO DAILY Review of Systems Unable to obtain secondary to current condition. Physical Exam Vital Signs Date Time Temp Pulse Resp B/P (MAP) Pulse Ox O2 Delivery O2 Flow Rate FiO2 02/28/18 11:01 67 19 219/109 92 Room Air 02/28/18 10:31 81 21 173/116 93 Room Air 02/28/18 10:12 65 16 184/97 94 Room Air 02/28/18 09:21 78 18 187/101 92 Room Air 02/28/18 09:04 37.1 98 20 190/97 93 Room Air 02/28/18 09:04 93 Room Air 02/28/18 08:46 79 General Appearance: WD/WN (Male, agitated, doesn't follow commands, grimaces but non verbal), + mild distress, + obese Head: normocephalic, atraumatic Eyes: PERRL, sclerae normal ENT: + pertinent finding (dry mucosal membranes) Neck: supple, no adenopathy, no JVD, no carotid bruits Respiratory/Chest: chest non-tender (exam limited due to patient agigtation/ not cooperative), lungs clear, normal breath sounds, no respiratory distress, no accessory muscle use Cardiovascular: + irregularly irregular, + abnormal peripheral pulses ( diminshed pedal pulses), + pertinent finding (b/l +1 pedal and pretibial edema, with mild venous stasis changes) Abdomen/GI: normal bowel sounds, soft, no pulsatile mass, + distended ( secondary to obesity), + pertinent finding (patient has mild grimacing with palpation) Extremities/Musculoskelatal: + pedal edema, + swelling Neurologic/Psych: alert (opens eyes to verbal stimulation), + aphasia (patient with minimal verbalization, not cooperative, does move both bilateral upper/ lower extremities;however cran nerves 2-12/neuro exam unable to assess accurately), + disoriented Skin: normal color, warm/dry Diagnostics Laboratory Results Results Past 24 Hours Test 02/28/18 08:35 02/28/18 08:43 02/28/18 08:48 02/28/18 09:37 Range/Units White Blood Count 5.29 4.8-10.8 K/uL Red Blood Count 3.89 4.7-6.1 M/uL Hemoglobin 12.0 14.0-18.0 g/dL Hematocrit 36.1 42-52 % Mean Corpuscular Volume 92.8 80-100 fL Mean Corpuscular Hemoglobin 30.8 25-34 pg Mean Corpuscular Hemoglobin Concent 33.2 32-36 g/dl Platelet Count 162 130-400 K/uL Mean Platelet Volume 10.4 7.4-10.4 fL Neutrophils (%) (Auto) 72.9 % Lymphocytes (%) (Auto) 17.4 % Monocytes (%) (Auto) 6.6 % Eosinophils (%) (Auto) 2.3 % Basophils (%) (Auto) 0.6 % Neutrophils # (Auto) 3.86 1.4-6.5 K/uL Lymphocytes # (Auto) 0.92 1.2-3.4 K/uL Monocytes # (Auto) 0.35 0.11-0.59 K/uL Eosinophils # (Auto) 0.12 0-0.5 K/uL Basophils # (Auto) 0.03 0-0.2 K/uL RDW Standard Deviation 48.8 36.4-46.3 fL RDW Coefficient of Variation 14.4 11.5-14.5 % Immature Granulocyte % (Auto) 0.2 % Immature Granulocyte # (Auto) 0.01 0.00-0.02 K/uL Prothrombin Time 10.0 9.0-12.0 SECONDS Prothromb Time International Ratio 1.0 0.9-1.1 Activated Partial Thromboplast Time 23.7 21.0-31.0 SECONDS Partial Thromboplastin Ratio 0.9 Sodium Level 140 136-145 mmol/L Potassium Level 3.8 3.5-5.1 mmol/L Chloride Level 107 98-107 mmol/L Carbon Dioxide Level 26 21-32 mmol/L Anion Gap 7.0 3-11 mmol/L Blood Urea Nitrogen 19 7-18 mg/dl Creatinine 1.11 0.60-1.40 mg/dl Est Creatinine Clear Calc Drug Dose 78.4 ml/min Estimated GFR () 73.3 Estimated GFR (Non- 63.3 BUN/Creatinine Ratio 17.5 10-20 Random Glucose 126 70-99 mg/dl Calcium Level 9.0 8.5-10.1 mg/dl Total Bilirubin 0.6 0.2-1 mg/dl Direct Bilirubin 0.1 0-0.2 mg/dl Aspartate Amino Transf (AST/SGOT) 15 15-37 U/L Alanine Aminotransferase (ALT/SGPT) 16 12-78 U/L Alkaline Phosphatase 75 45-117 U/L Total Creatine Kinase 80 39-308 U/L Creatine Kinase MB 1.5 0.5-3.6 ng/ml Creatine Kinase MB Ratio 1.9 0-3.0 Troponin I < 0.015 0-0.045 ng/ml Total Protein 7.6 6.4-8.2 gm/dl Albumin 3.9 3.4-5.0 gm/dl Lipase 174 73-393 U/L Thyroid Stimulating Hormone (TSH) 0.957 0.300-4.500 uIu/ml Bedside Lactic Acid Venous 0.88 0.90-1.70 mmol/L Urine Color YELLOW Urine Appearance CLEAR CLEAR Urine pH 7.5 4.5-7.5 Urine Specific [place] 1.012 1.000-1.030 Urine Protein 1+ NEG Urine Glucose (UA) NEG NEG Urine Ketones NEG NEG Urine Occult Blood TRACE NEG Urine Nitrite NEG NEG Urine Bilirubin NEG NEG Urine Urobilinogen NEG NEG Urine Leukocyte Esterase NEG NEG Urine WBC (Auto) 0 0-5 /hpf Urine RBC (Auto) 0-4 0-4 /hpf Urine Hyaline Casts (Auto) 0 0-5 /lpf Urine Epithelial Cells (Auto) 5-10 0-5 /lpf Urine Bacteria (Auto) NEG NEG Urine Opiates Screen NEG NEG Urine Methadone, Qualitative NEG NEG Urine Barbiturates NEG NEG Urine Phencyclidine (PCP) Level NEG NEG Ur Amphetamine/Methamphetamine NEG NEG MDMA (Ecstasy) Screen NEG NEG Urine Benzodiazepines Screen NEG NEG Urine Cocaine Metabolite NEG NEG Urine Marijuana (THC) NEG NEG Ammonia 22.9 11-32 umol/L Ethyl Alcohol mg/dL < 3.0 0-3 mg/dl Microbiology Results 02/28/18 Blood Culture, Received Pending 02/28/18 Blood Culture, Received Pending Diagnostic Radiology CT Scan Brain: 1. Motion degraded exam. 2. Ill-defined area of decreased attenuation with blurring of the klein-white interface involves the right frontal and temporal lobes suggests acute infarction with cytotoxic edema and mild sulcal effacement. No discrete hemorrhage, or midline shift. 3. Atrophy with chronic microvascular ischemic changes. Chest Xray: FINDINGS: Findings of developing congestive failure versus pulmonary edema. Increased prominence of the central pulmonary vasculature. Diaphragms smooth. Permanent unipolar cardiac pacemaker. IMPRESSION: Congestive heart failure CT Abd/Pelvis: IMPRESSION: 1. No bowel wall thickening or obstruction. 2. Right-sided nephrolithiasis. No ureteral stones. No hydronephrosis. 3. Cholelithiasis. 4. Normal appendix. 5. No change in the moderate size fat-containing umbilical hernia. 6. Subcutaneous fluid collection along the lateral aspect of the right hip. This is only partially visualized but was likely present on the 2016 examination. Therefore, this is of doubtful clinical significance and favors a seroma or lymphocele. 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 In ED and initial workup revealed ill-defined area of decreased attenuation with blurring of the klein-white interface involves the right frontal and temporal lobes suggests acute infarction without midline shift or hemorrhage, chest x-ray positive for CHF, H/H 12.1 and 36.1, WBC 5.29, platelet count 162, sodium 140, potassium 3.8, BUN 19, creatinine 1.1, glucose 126, UA negative, troponin negative LA within normal limits, ECG atrial fibrillation, ventricular rate 67 bpm with frequent PVCs. Patient's [facility] chart reviewed in [facility] which those most recent blood work on 02/14/18 A1c 5.7, LDL 74, echo on 01/03/18 EF 55-59%, mild LVH, AV calcified severe stenosis. He is being admitted for further neurologic work up of new CVA. 1. Admit to telemetry 2. NPO until evaluated and treated by speech therapy 3. PT/OT/ST consulted 4. Echo with bubble study ordered 5. Neurology consultation 6. Fasting lipid panel, Hemoglobin A1C in a.m. 7. Permissive HTN for 24-48hrs 8. U/S of carotids 9. Interrogate pacer 10. CT in a.m. to r/o hemorrhagic conversion 11. 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 No current chest pain/sob. (7) Pre-diabetes Assessment & Plan: Most recent A1c on 02/14/18 was 5.7 Ordered Accu-Cheks before meals/at bedtime to monitor for hyperglycemia (8) CHF (congestive heart failure) Assessment & Plan: Per chest x-ray positive CHF Most recent echo on 01/03/18 revealed EF 55-59%, mild LVH, AV calcified, severe aortic stenosis Patient has had bilateral lower extremity edema which per son is chronic, does not appear to be worse. Currently patient is not exhibiting respiratory distress and will check BNP in a.m. Will hold on diuretics for now. (9) Benign prostatic hyperplasia Assessment & Plan: on flomax and finasteride On hold secondary to NPO status (10) Gastroesophageal reflux disease Assessment & Plan: IV protonix/ranitidine (11) Morbid Obesity This is a 77 year old obese male with a past medical history of TIA, chronic atrial fibrillation not on anticoagulation, tachy-frandy syndrome s/p permanent pacemaker, CAD, HTN, HLD, BPH, GERD - presents with an acute CVA Acute R Fronto-Temporal CVA - likely due to atrial fibrillation and not being on anticoagulation - as per records, he refused anticoagulation - spoke with family, they agree that he should be started on anticoagulation at this time - will await repeat head CT in AM (03/01) - will start IV heparin if no hemorrhagic conversion - continue aspirin and statin - PT/OT/speech consulted Chronic Atrial Fibrillation - continue Labetalol; rate is controlled - will start anticoagulation once no hemorrhagic conversion confirmed Severe Aortic Stenosis - may need cardiology input - for now, monitor for overload CAD - continue Imdur, statin, aspirin, b-nelson, RAISA-I Tachy-Frandy Syndrome s/p Permanent Pacemaker HTN - will allow permissive HTN, BP range should be around 160-180 - given a few doses of IV Labetalol and IV Vasotec - awaiting speech eval and then restart PO home medications DVT ppx - SCDs FULL CODE Resuscitation Status Full code; family does not believe he has living will in place. He is his own POA. VTE Prophylaxis Will order VTE Prophylaxis: Yes (Scds for now)
[2018-02-28] MEDS ORDERED: PERFLUTREN LIPID MICROSPHERE (DEFINITY) IV ONE (15:29)
[2018-02-28 16:00] VITALS: O2SAT 94
[2018-02-28 16:26] VITALS: BP 206/94; PULSE 106; TEMP 36.7; O2SAT 93
[2018-02-28] MEDS ORDERED: ASPIRIN 300 MG SUPP PR STA (16:27)
[2018-02-28 16:30] VITALS: BP 193/104
--- NOTE | 2018-02-28 16:36 | ECHOCARDIOGRAM REPORT ---
*NOTICE TO RECEIVING REPUBLICAN AGENCY This information is strictly Confidential and protected under [place] law. [place] law prohibits you from making any further disclosure of this information unless further disclosure is expressly permitted by the written consent of the person to whom it pertains or is authorized by law. A general authorization for the release of medical or other information is not sufficient for this purpose. Hospital accepts no responsibility if the information is made available to any other person, INCLUDING THE PATIENT. Interpretation Summary * Name: WALTER ESPOSITO Study Date: 02/28/2018 02:23 PM BP: 219/109 mmHg * Patient Location: C.2E\S\E204\S\1 HR: 76 * : 1940 (M/d/yyyy) Gender: Male Height: 72 in * Age: 77 yrs Ethnicity: CA Weight: 300 lb * Ordering Physician: Mackenzie Diaz * Referring Physician: Self, Referred * Performed By: Qi Dennis RDCS * * Reason For Study: CVA * BSA: 2.5 m2 * Patient restless throughout exam, unable to follow commands, attempting to get out of bed and push heavy equipment technician away. * Attempted microcavitation study, Pedoff, and Definity. * -- Conclusions -- * Echocardiogram study is technically limited but adequate for the referral indication. * The left ventricular wall motion is normal. * Left ventricular ejection Fraction = 55-60%. * There is mild mitral annular calcification. * There is mild mitral regurgitation. * The aortic valve is severely calcified. * Aortic valve imaging suggest severe aortic * stenosis not confirmed by Doppler examination. The Doppler exam may have underestimated the degree of stenosis. * There is no significant aortic regurgitation. * Severe aortic valve stenosis is suspected. * Compared to the report of the prior outpatient study performed 01/03/18 at [facility], there has been no significant interval change. Procedure Details * A complete two-dimensional transthoracic echocardiogram was performed (2D, M-mode, Doppler and color flow Doppler). * The study was technically difficult. * The study was technically difficult, but visualization was adequate with the administration of Definity ultrasound contrast. * There were technical limitations due to patient'sinability to cooperate * A saline contrast injection was performed to assess for cardiac shunting. * The injection was performed through an intravenous line in the left arm. * The attending nurse who injected the saline contrast was Lili Joe RN. * A total of 10 cc of agitated saline was given. * A contrast injection of Definity was performed to improve assessment of LV function. * Contrast was injected into an intravenous site in the left arm. * One vial of Definity ultrasound contrast was diluted in normal saline to a total volume of 10 ml. A total of '1.5' ml of solution was administered during imaging. * Lot # [id number] of Definity utilized for procedure. * Expiration date ul. * The attending nurse who injected the contrast agent was Lili Joe RN. Left Ventricle * The left ventricle is normal in size. * There is no left ventricular mural thrombus. * There is mild concentric left ventricular hypertrophy. * Ejection Fraction = 55-60%. * Left ventricular systolic function is normal. * The left ventricular wall motion is normal. Right Ventricle * The right ventricle is normal in size and function. Atria * The left atrium is mildly dilated. * Left atrial appendage is not assessed. * Right atrial size is normal. * There is no evidence of an atrial septal defect. Assessment for PFO was attempted with administration of agitated saline contrast, but is technically insufficient due to low resolution, and poor patient compliance. Mitral Valve * There is mild mitral annular calcification. * There is no mitral valve stenosis. * There is mild mitral regurgitation. Tricuspid Valve * The tricuspid valve is normal. * There is no tricuspid stenosis. * Significant tricuspid regurgitation is absent. Aortic Valve * The aortic valve is trileaflet. * The aortic valve is severely calcified. * Aortic valve imaging suggest severe aortic stenosis not confirmed by Doppler examination. The Doppler exam may have underestimated the degree of stenosis. * There is no significant aortic regurgitation. Pulmonic Valve * The pulmonary valve is not well seen, but the Doppler examination is normal without significant regurgitation or stenosis. Great Vessels * The aortic root and proximal ascending aorta are normal sized. Pericardium/Pleural * There is no pericardial effusion. Right Ventricle * Pacemaker lead is noted in the right ventricle. Great Vessels * Normal inferior vena cava diameter and respiratory variation suggests normal central venous pressure. Left Ventricular Diastolic Function * Left ventricular diastolic function is likely abnormal given left ventricular hypertrophy and left atrial enlargement, but is not graded due to the presence of underlying atrial fibrillation. MMode 2D Measurements and Calculations IVSd 1.7 cm IVSs 1.8 cm LVIDd 3.9 cm LVIDs 2.5 cm LVPWd 1.5 cm LVPWs 2.1 cm IVS/LVPW 1.1 FS 36.6 % EDV(Teich) 67.2 ml ESV(Teich) 22.1 ml EF(Teich) 67.1 % EDV(cubed) 60.8 ml ESV(cubed) 15.5 ml EF(cubed) 74.6 % % IVS thick 4.2 % % LVPW thick 36.6 % LV mass(C)d 252.0 grams LV mass(C)dI 99.6 grams/m\S\2 LV mass(C)s 197.8 grams LV mass(C)sI 78.1 grams/m\S\2 SV(Teich) 45.1 ml SI(Teich) 17.8 ml/m\S\2 SV(cubed) 45.3 ml SI(cubed) 17.9 ml/m\S\2 Ao root diam 3.5 cm Ao root area 9.9 cm\S\2 ACS 0.91 cm LA dimension 5.8 cm LA/Ao 1.6 LVOT diam 1.9 cm LVOT area 2.9 cm\S\2 LVAd ap4 51.4 cm\S\2 LVLd ap4 10.8 cm EDV(MOD-sp4) 200.5 ml EDV(sp4-el) 208.3 ml LVAs ap4 30.2 cm\S\2 LVLs ap4 9.6 cm ESV(MOD-sp4) 82.4 ml ESV(sp4-el) 80.5 ml EF(MOD-sp4) 58.9 % EF(sp4-el) 61.3 % LVAd ap2 52.4 cm\S\2 LVLd ap2 10.5 cm EDV(MOD-sp2) 220.9 ml EDV(sp2-el) 221.9 ml LVAs ap2 31.8 cm\S\2 LVLs ap2 9.5 cm ESV(MOD-sp2) 91.0 ml ESV(sp2-el) 90.3 ml EF(MOD-sp2) 58.8 % EF(sp2-el) 59.3 % LVLd %diff -2.51 % EDV(MOD-bp) 214.0 ml LVLs %diff -0.80 % ESV(MOD-bp) 86.2 ml EF(MOD-bp) 59.7 % SV(MOD-sp4) 118.1 ml SI(MOD-sp4) 46.7 ml/m\S\2 SV(MOD-sp2) 129.9 ml SI(MOD-sp2) 51.3 ml/m\S\2 SV(MOD-bp) 127.8 ml SI(MOD-bp) 50.5 ml/m\S\2 SV(sp4-el) 127.7 ml SI(sp4-el) 50.5 ml/m\S\2 SV(sp2-el) 131.6 ml SI(sp2-el) 52.0 ml/m\S\2 Doppler Measurements and Calculations MV E max mary 140.1 cm/sec MV dec time 0.24 sec Ao V2 max 325.9 cm/sec Ao max PG 42.5 mmHg Ao max PG (full) 37.6 mmHg Ao V2 mean 196.0 cm/sec Ao mean PG 18.6 mmHg Ao mean PG (full) 16.2 mmHg Ao V2 VTI 68.9 cm YOVANI(I,A) 10 cm\S\2 YOVANI(I,D) 10 cm\S\2 YOVANI(V,A) 0.97 cm\S\2 YOVANI(V,D) 0.97 cm\S\2 LV V1 max PG 4.9 mmHg LV V1 mean PG 2.3 mmHg LV V1 max 110.4 cm/sec LV V1 mean 69.6 cm/sec LV V1 VTI 24.0 cm MR max mary 685.7 cm/sec MR max PG 188.1 mmHg MR mean mary 588.9 cm/sec MR mean PG 148.0 mmHg MR VTI 248.1 cm MR PISA 2.2 cm\S\2 MR PISA radius 0.60 cm SV(Ao) 681.7 ml SI(Ao) 269.3 ml/m\S\2 SV(LVOT) 68.7 ml SI(LVOT) 27.2 ml/m\S\2 PA V2 max 118.2 cm/sec PA max PG 5.7 mmHg TR max mary 273.4 cm/sec
[2018-02-28 17:15] VITALS: BP 172/87
[2018-02-28 20:38] VITALS: BP 182/100; PULSE 57; TEMP 37.5; O2SAT 94
[2018-02-28] MEDS: RANITIDINE IV 50 MG in DEXTROSE 5% 100ML 100 ML IV SCH (21:38)
[2018-02-28 23:55] VITALS: BP 186/84; PULSE 72; TEMP 37.6; O2SAT 92
[2018-03-01] VITALS (8 sets, daily range): BP systolic 149–177; BP diastolic 89–119; PULSE 62–94; TEMP 36.4–37; O2SAT 92–95
[2018-03-01] MEDS: METOPROLOL TARTRATE 1 MG/ML VIAL IV. SCH ×4 (00:11→18:00)
[2018-03-01] MEDS: RANITIDINE IV 50 MG in DEXTROSE 5% 100ML 100 ML IV SCH ×2 (05:32→18:15)
[2018-03-01] MEDS ORDERED: HALOPERIDOL LACTATE 5 MG/ML 1 ML VIAL IM ONE (06:00)
--- NOTE | 2018-03-01 06:47 | DIAGNOSTIC IMAGING REPORT ---
HEAD WITHOUT CONTRAST (CT) CLINICAL HISTORY: 77 years-old Male with F/U CVA r/o hemorrhagic conversion. Follow-up study in a patient with acute infarct. Concern for possible acute intracranial hemorrhage TECHNIQUE: Multiple axial CT images of the head were obtained without contrast. A dose lowering technique was utilized adhering to the principles of ALARA. CT DOSE: 1228.53 mGy.cm COMPARISON: CT head 02/28/2018. FINDINGS: No acute intracranial hemorrhage, midline shift, abnormal extra-axial collections, hydrocephalus or intracranial mass. Study is motion degraded. Cerebral vascular calcifications. Age-related involutional changes with chronic microvascular ischemic changes. Senescent calcifications about the lentiform nuclei. There is evolution of the subacute infarct involving the right MCA territory which predominantly involves the right temporal lobe measuring up to 9.5 x 3.9 cm in AP and transverse dimension and lesser extent involves the right frontal lobe and also possibly the right parietal lobe. Sulcal effacement within these distributions from progressively worsened cytotoxic edema. No herniation. No calvarial fracture. The mastoid air cells and middle ear cavities are clear. No significant paranasal sinus disease. The soft tissues and orbits are unremarkable. Prior bilateral cataract repair. IMPRESSION: 1. Evolution of the large subacute right MCA territory infarction which predominantly involves the right temporal lobe measuring up to 9.5 cm in greatest dimension. There is sulcal effacement from the cytotoxic edema without midline shift or intracranial hemorrhage. 2. Motion degraded exam. The above report was generated using voice recognition software. It may contain grammatical, syntax or spelling errors. Electronically signed by: Bryan Jarvis M.D. 03/01/2018 6:46 AM Dictated Date/Time: 03/01/2018 6:41 AM
--- NOTE | 2018-03-01 07:13 | DIAGNOSTIC IMAGING REPORT ---
BILATERAL CAROTID DOPPLER STUDY HISTORY: Stroke symptoms. COMPARISON: None. TECHNIQUE: Real-time, grayscale, and color Doppler sonography of the carotid arteries was performed. Imaging reviewed in the transverse and longitudinal planes. All measurements were calculated based on NASCET criteria. FINDINGS: Antegrade flow is seen in the bilateral vertebral arteries. Mild scattered calcified plaque within the bilateral carotid arteries. The peak systolic velocity within the right ICA is 54 cm/s. The right systolic ratio is 1.2. The peak systolic velocity within the left ICA is 69 cm/s. The left systolic ratio is 1.0. IMPRESSION: No hemodynamically significant stenosis seen within the carotid arteries. Electronically signed by: Facundo White M.D. 03/01/2018 7:11 AM Dictated Date/Time: 03/01/2018 7:10 AM
[2018-03-01] MEDS: ASPIRIN 300 MG SUPP PR SCH (09:00)
[2018-03-01] MEDS ORDERED: HEPARIN 25,000 UNIT/500ML D5W 500 ML IV SCH (10:00)
[2018-03-01 10:27] LABS: BASO % 0.1 %; BASO ABS # 0.01 K/uL (0-0.2); EOS % 1.3 %; EOS ABS # 0.09 K/uL (0-0.5); HEMOGLOBIN 13.5 g/dL (14.0-18.0); IG# 0.01 K/uL (0.00-0.02); LYMPH % 16.2 %; LYMPH ABS # 1.13 K/uL (1.2-3.4); MEAN CELL VOLUME 91.7 fL (80-100); MEAN PLATELET VOLUME 10.4 fL (7.4-10.4); MONO % 9.8 %; MONO ABS # 0.68 K/uL (0.11-0.59); NEUT % 72.5 %; NEUT ABS # 5.05 K/uL (1.4-6.5); PLATELET COUNT 158 K/uL (130-400); RED CELL DISTRIBUTION WIDTH CV 14.2 % (11.5-14.5); RED CELL DISTRIBUTION WIDTH SD 48.1 fL (36.4-46.3); WHITE BLOOD COUNT 6.97 K/uL (4.8-10.8)
[2018-03-01 10:29] LABS: MEAN CORPUSCULAR HGB CONC 33.8 g/dl (32-36)
[2018-03-01 10:43] LABS: CALCIUM 8.9 mg/dl (8.5-10.1); CREATININE 0.9 mg/dl (0.60-1.40); POTASSIUM 3.2 mmol/L (3.5-5.1)
--- NOTE | 2018-03-01 10:45 | Progress Note ---
Subjective Date of Service: Mar 01, 2018. Subjective Pt evaluation today including: conversation w/ patient, physical exam, lab review, review of studies, conversation w/ groundwater consultant, review of inpatient medication list Saw/examined the patient in room 204 He's not very responsive this morning Moans at times, but does not awaken Problem List Medical Problems: (1) VIANEY (acute kidney injury) Status: Acute (2) Contusion of multiple sites Status: Acute (3) Elevated troponin Status: Acute (4) Flank pain Status: Acute (5) HTN (hypertension) Status: Acute (6) Left leg cellulitis Status: Acute (7) Left sided chest pain Status: Acute (8) Lumbar strain Status: Acute (9) Poorly-controlled hypertension Status: Acute (10) Stroke Status: Acute Review of Systems Cannot obtain due to patient's mental status Medications Current Inpatient Medications Medications (Trade) Dose Ordered Sig/Barry Route Start Time Stop Time Status Last Admin Dose Admin Miscellaneous Information (Pharmacist Discharge Med Rec Consult) 1 ea UD PRN N/A 02/28/18 11:45 03/30/18 11:44 Pantoprazole Sodium 40 mg/ Syringe 10 ml @ 5 mls/min DAILY@11 IV 03/01/18 11:00 03/31/18 10:59 Ranitidine HCl 50 mg/Dextrose 102 ml @ 200 mls/hr Q8H IV 02/28/18 22:00 03/30/18 14:59 03/01/18 05:32 200 MLS/HR Aspirin (Aspirin Supp) 300 mg DAILY NE 03/01/18 09:00 03/31/18 08:59 Metoprolol Tartrate (Lopressor Iv) 2.5 mg Q6H IV. 03/01/18 00:00 03/02/18 23:59 03/01/18 05:38 2.5 MG Miscellaneous Information (Pending Order) 1 ea TODAY@0800 N/A 03/02/18 08:00 03/02/18 08:01 Heparin Sodium/ Dextrose 500 ml @ 32 mls/hr [id number] IV 03/01/18 10:00 03/31/18 09:59 Objective Vital Signs Date Time Temp Pulse Resp B/P (MAP) Pulse Ox O2 Delivery O2 Flow Rate FiO2 03/01/18 07:48 37.0 62 16 171/98 (122) 93 Room Air 03/01/18 05:38 72 173/86 818 02:43 36.4 67 20 177/92 (120) 92 Room Air 03/01/18 00:11 72 186/84 8 23:59 Room Air 02/28/18 23:55 37.6 72 23 186/84 (118) 92 Room Air 02/28/18 20:38 37.5 57 21 182/100 (127) 94 Room Air 02/28/18 17:15 172/87 (115) 02/28/18 16:30 193/104 (133) 02/28/18 16:26 36.7 106 24 206/94 (131) 93 Room Air 02/28/18 16:00 94 Room Air 02/28/18 13:03 Room Air 02/28/18 12:43 71 21 191/106 94 8 12:36 76 25 92 02/28/18 12:32 191/106 02/28/18 12:31 76 20 94 02/28/18 12:26 70 15 93 02/28/18 12:21 75 21 200/110 93 818 12:20 79 21 200/110 92 Room Air 02/28/18 12:16 65 16 94 02/28/18 12:11 72 20 92 18 12:06 61 16 92 18 12:01 66 16 93 818 11:56 66 17 92 818 11:51 64 20 92 818 11:46 76 15 92 818 11:41 62 16 92 818 11:36 64 16 91 818 11:31 66 19 91 82/18 11:26 62 17 89 82/18 11:21 75 25 93 8218 11:16 76 22 93 818 11:11 72 24 94 8218 11:06 76 19 93 8218 11:02 219/109 8218 11:01 86 24 92 8218 11:01 67 19 219/109 92 Room Air 02/28/18 10:56 64 19 94 8218 10:51 62 17 93 8218 10:46 66 23 93 8218 10:41 70 20 95 Physical Exam Respiratory/Chest: no respiratory distress, no accessory muscle use, + decreased breath sounds Cardiovascular: no edema, no murmur, + irregularly irregular Neurologic/Psychiatric: + pertinent finding (not awakening to any type of response) Laboratory Results Last 24 Hours Test 02/28/18 14:27 02/28/18 18:10 02/28/18 20:29 02/28/18 23:58 Bedside Glucose 100 mg/dl 102 mg/dl 125 mg/dl 115 mg/dl Test 03/01/18 06:12 03/01/18 10:07 03/01/18 10:08 Bedside Glucose 123 mg/dl Prothrombin Time 10.7 SECONDS Prothromb Time International Ratio 1.0 Activated Partial Thromboplast Time 25.0 SECONDS Partial Thromboplastin Ratio 1.0 White Blood Count 6.97 K/uL Red Blood Count 4.36 M/uL Hemoglobin 13.5 g/dL Hematocrit 40.0 % Mean Corpuscular Volume 91.7 fL Mean Corpuscular Hemoglobin 31.0 pg Mean Corpuscular Hemoglobin Concent 33.8 g/dl Platelet Count 158 K/uL Mean Platelet Volume 10.4 fL Neutrophils (%) (Auto) 72.5 % Lymphocytes (%) (Auto) 16.2 % Monocytes (%) (Auto) 9.8 % Eosinophils (%) (Auto) 1.3 % Basophils (%) (Auto) 0.1 % Neutrophils # (Auto) 5.05 K/uL Lymphocytes # (Auto) 1.13 K/uL Monocytes # (Auto) 0.68 K/uL Eosinophils # (Auto) 0.09 K/uL Basophils # (Auto) 0.01 K/uL RDW Standard Deviation 48.1 fL RDW Coefficient of Variation 14.2 % Immature Granulocyte % (Auto) 0.1 % Immature Granulocyte # (Auto) 0.01 K/uL Assessment and Plan This is a 77 year old obese male with a past medical history of TIA, chronic atrial fibrillation not on anticoagulation, tachy-frandy syndrome s/p permanent pacemaker, CAD, HTN, HLD, BPH, GERD - presents with an acute CVA Acute R Fronto-Temporal CVA 03/01 - repeat Head CT showing large evolving CVA - no hemorrhagic conversion, so will start IV heparin at this time - NPO due to mental status - will speak with neurology; may need palliative care consulting pending prognosis 02/28 - likely due to atrial fibrillation and not being on anticoagulation - as per records, he refused anticoagulation - spoke with family, they agree that he should be started on anticoagulation at this time - will await repeat head CT in AM (03/01) - will start IV heparin if no hemorrhagic conversion - continue aspirin and statin - PT/OT/speech consulted Chronic Atrial Fibrillation - started on IV Lopressor q6 scheduled for rate control - IV heparin Severe Aortic Stenosis - may need cardiology input - for now, monitor for overload CAD - continue Imdur, statin, aspirin, b-nelson, RAISA-I Tachy-Frandy Syndrome s/p Permanent Pacemaker HTN - will allow permissive HTN, BP range should be around 160-180 - given a few doses of IV Labetalol and IV Vasotec - awaiting speech eval DVT ppx - IV heparin FULL CODE
[2018-03-01 11:20] LABS: HEMOGLOBIN A1C 5.9 % (4.5-5.6)
--- NOTE | 2018-03-01 11:41 | Cardiology Consultation ---
Cardiology Consultation Date of Service Mar 01, 2018. (Catia Rodriguez PA-C) Cardiology Consultation Requesting Provider: Dr. Christina Attending Food Cashier: Dr. Mcdaniels History of Present Illness: Chaka Kennedy is 77 year old male who is known to [facility] cardiology service, following with Adrián King PA-C as an outpatient for history of chronic atrial fibrillation previously refusing anticoagulation therapy, tachybrady syndrome history of single-chamber pacemaker in January 2015, and moderate to severe aortic stenosis. All history is obtained from medical records as outpatient and admission H&P. Patient is currently not able to be awakened and non verbal. Patient was admitted to [facility] on 02/28/2018 with acute CVA, likely embolic secondary to A. fib. Onset was unknown and TPA not administered. Head CT demonstrates subacute right MCA territory infarction which predominantly involves the right temporal lobe measuring up to 9.5 cm. No hemorrhagic conversion. Chronic afib, rates controlled on telemetry. At time of consult patient not able to awaekend. ROS not able to be performed. Grunts/groans in response to verbal and tactile stimuli. BP remains elevated, permissive HTN. Afib, rates controlled. Problem List: 1. Chronic atrial fibrillation. 2. Tachy-Frandy Syndrome s/p single chamber pacemaker implantation in January 2015 3. Anticoagulation refused. 4. Hypertension 5. Chart history of CAD and HI circa 2004. Negative DSE in August 2011 6. Aortic stenosis. 7. Preserved LV systolic function 8. Dyslipidemia with optimal LDL goal < 70 mg/dL 9. History of pancreatitis. 10. Gastroesophageal reflux disease, gastric polyp. 11. Obesity. 12. Diverticulosis. 13. Ventral hernia 14. BPH, nocturia x 1-2 Surgical Problems: (1) H/O esophagogastroduodenoscopy Family History: Father at 86. Mother at 59, etiology unclear. Social History: Former smoker. No alcohol. No drugs. Lives [address] in [place]. Complete Review of Systems: Unable to be performed. Review of patient's allergies indicates: Allergen Reactions Atarax [Hydroxyzine Hcl] Itching Clindamycin Abdominal pain Clotrimazole Burning in stomach and entire digestive tract Doxycycline Hyclate Chest pain, rash Hydrodiuril Rash Penicillins Rash [place] Extract Sulfa Antibiotics Rash Reported Home Medications Medications Dose Route/Sig Max Daily Dose Days Date Category Dose Instructions Zantac (Ranitidine HCl) 150 Mg Tab 150 Mg PO BID 02/28/18 Reported Amlodipine Besylate 5 Mg Tab 10 Mg PO DAILY@0900 30 04/25/16 Rx Hydralazine HCl 50 Mg Tab 50 Mg PO TID 04/23/16 Reported Protonix (Pantoprazole Sodium) 40 Mg Tab 40 Mg PO DAILY 04/23/16 Reported Capoten (Captopril) 50 Mg Tab 50 Mg PO TID 04/23/16 Reported Tylenol (Acetaminophen) 500 Mg Tab 1,000 Mg PO PRN UD 02/06/16 Reported Flomax (Tamsulosin Hcl) 0.4 Mg Cap 0.4 Mg PO DAILY 10/27/15 Reported Normodyne (Labetalol Hcl) 200 Mg Tab 200 Mg PO BID 10/27/15 Reported Nitrostat (Nitroglycerin) 0.4 Mg Tab 0.4 Mg UT PRN 10/27/15 Reported Aspirin Ec (Aspirin) 81 Mg Tab 81 Mg PO DAILY 10/27/15 Reported Imdur Ext Rel (Isosorbide Mononitrate) 30 Mg Tabcr 60 Mg PO QAM 10/27/15 Reported Docusate Sodium 100 Mg Cap 100 Mg PO BID 7 10/27/15 Reported Lipitor (Atorvastatin Calcium) 40 Mg Tab 40 Mg PO QPM 10/27/15 Reported Proscar (Finasteride) 5 Mg Tab 5 Mg PO DAILY 10/27/15 Reported Miralax (Polyethylene Glycol 3350) 1 Pow Pow 17 Gm PO DAILY 10/27/15 Reported IF NO BM IN 2 DAYS, TAKE BID. PHYSICAL EXAMINATION: General: Obese. Unresponsive. Heart: Regular III/ systolic ejection murmur heard best at the right upper sternal border. No diastolic murmur. No rub. No gallop. PMI is nondisplaced. Lungs: Clear to auscultation anteriorly No dullness to percussion. Abdomen: Obese. +BS. Soft. Nontender. No masses or organomegaly. Extremities: 2+ left greater than right lower extremity edema.s. DATA current admission: Head CT repeat, 03/01 IMPRESSION: 1. Evolution of the large subacute right MCA territory infarction which predominantly involves the right temporal lobe measuring up to 9.5 cm in greatest dimension. There is sulcal effacement from the cytotoxic edema without midline shift or intracranial hemorrhage. 2. Motion degraded exam. Head CT on arrival: IMPRESSION: 1. Motion degraded exam. 2. Ill-defined area of decreased attenuation with blurring of the klein-white interface involves the right frontal and temporal lobes suggests acute infarction with cytotoxic edema and mild sulcal effacement. No discrete hemorrhage, or midline shift. 3. Atrophy with chronic microvascular ischemic changes. 2D echo report this admission: * Patient restless throughout exam, unable to follow commands, attempting to get out of bed and push animal trainer away. * Attempted microcavitation study, Pedoff, and Definity. * -- Conclusions -- * Echocardiogram study is technically limited but adequate for the referral indication. * The left ventricular wall motion is normal. * Left ventricular ejection Fraction = 55-60%. * There is mild mitral annular calcification. * There is mild mitral regurgitation. * The aortic valve is severely calcified. * Aortic valve imaging suggest severe aortic * stenosis not confirmed by Doppler examination. The Doppler exam may have underestimated the degree of stenosis. * There is no significant aortic regurgitation. * Severe aortic valve stenosis is suspected. * Compared to the report of the prior outpatient study performed 01/03/18 at [facility], there has been no significant interval change. Prior DATA: Pacemaker interrogation completed November 2017: Appropriate battery longevity of 7.5 years. Chronic afib; RV pacing 98.% Echo report reviewed, from 01/03/18 at : Interpretation Summary The examination is adequate to evaluate the referral indication. The LV wall thickness is mildly increased (concentric). The left ventricular wall motion is normal. The qualitative LV ejection fraction is 5559% (normal). The aortic valve has three leaflets. The aortic valve is severely calcified. There is no significant aortic regurgitation. Aortic valve imaging suggest severe aortic stenosis not confirmed by Doppler examination. The Doppler exam dated is consistent with moderate aortic valve stenosis and may have underestimated the degree of stenosis. Mild mitral regurgitation is present. The aortic root diameter is normal. The proximal ascending thoracic aorta is not visualized sufficiently enough to allow measurement. Compared to the prior study dated 03/26/2013, aortic valve sclerosis without stenosis had been reported at that time and has progressed to moderate to severe aortic valve stenosis. The left atrium is severely enlarged. October 28, 2015 TTE Interpretation Summary ([facility], Dr. Hawk): Normal LV chamber size and wall thickness. Normal LV systolic function, EF 60-65%. No segmental left ventricular wall motion abnormalities are noted. Moderately calcified aortic valve. Mild aortic stenosis. Mild aortic regurgitation. Severe left atrial enlargement. ASSESSMENT: 77 year old male 1. Acute right MCA infarct, likely embolic due to afib 2. chronic afib, previously declining anticoagulation, rate controlled 3. History of moderate to severe 4. Hypertension - allow permissive hypertension 5. Moderate to severe aortic stenosis. RECOMMENDATIONS/PLAN: repeat Head CT without hemorrhagic conversion. Start IV heparin for anticoagulation. Consider hep to Coumadin for termite control servicer anticoagulation pending on hospital course. Agree with IV metoprolol for rate control. Allow permissive hypertension, and slowly titrate meds. Case discussed with Dr. Mcdaniels. (Catia Rodriguez PA-C) CARDIOLOGY ATTENDING ADDENDUM: The patient was seen and personally examined. Agree with Catia Rodriguez PA-C's findings and plans as documented above with additions as noted below. Subjective: Patient is awake, but is not conversant, does not follow commands. Exam: Irregular rhythm, 2/6 systolic murmur heard Neurologic, not following commands. Data: EKG reveals ventricular paced rhythm, with history of underlying atrial fibrillation Echocardiogram with findings suggestive of severe aortic valve stenosis. The 2D images consistent with severe aortic stenosis the Doppler data suggests moderate aortic valve stenosis Impression: Large subacute right MCA territory infarction likely cardioembolic due to atrial fibrillation, not on anticoagulation in the past Likely underlying severe aortic valve stenosis Plan: Patient previously declined anticoagulation therapy. Proceed with heparin, Coumadin if able to take orals. Patient is or is not a candidate for aortic valve intervention at present. Continue supportive care for stroke. (Eliezer Mcdaniels,Miriam.O.)
[2018-03-01] MEDS: PANTOprazole INJ 40 MG in SYRINGE 0 ML IV SCH (13:06)
--- NOTE | 2018-03-01 15:07 | Neurology Progress Notes ---
Neurology Progress Note Date of Service Mar 01, 2018. Elizabeth Null is a 77 year old male who presented to ED with change MS. He has a PMH VIANEY, HTN, CAD afib, esdras/tachy syndrome with pacemaker, DL, TIA, DJD, history of polio as a child. 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 He is complaint with his other medications but he had refused any anticoagulation therapy for his afib. He was started on aspirin in the ED but no tPa was given. His blood pressure was systolic 200 on arrival. He is currently lying in bed and is not cooperative. unable to obtain ROS at this time Objective Date Time Temp Pulse Resp B/P (MAP) Pulse Ox O2 Delivery O2 Flow Rate FiO2 03/01/18 12:00 65 149/93 03/01/18 11:39 36.8 67 18 149/93 (111) 95 Room Air 03/01/18 08:00 93 Room Air 03/01/18 07:48 37.0 62 16 171/98 (122) 93 Room Air 03/01/18 05:38 72 173/86 03/01/18 02:43 36.4 67 20 177/92 (120) 92 Room Air 03/01/18 00:11 72 186/84 02/28/18 23:59 Room Air 02/28/18 23:55 37.6 72 23 186/84 (118) 92 Room Air 02/28/18 20:38 37.5 57 21 182/100 (127) 94 Room Air 02/28/18 17:15 172/87 (115) 02/28/18 16:30 193/104 (133) 02/28/18 16:26 36.7 106 24 206/94 (131) 93 Room Air 02/28/18 16:00 94 Room Air Last 24 Hours Test 02/28/18 18:10 02/28/18 20:29 02/28/18 23:58 03/01/18 06:12 Bedside Glucose 102 mg/dl 125 mg/dl 115 mg/dl 123 mg/dl Test 03/01/18 10:07 03/01/18 10:08 Prothrombin Time 10.7 SECONDS Prothromb Time International Ratio 1.0 Activated Partial Thromboplast Time 25.0 SECONDS Partial Thromboplastin Ratio 1.0 White Blood Count 6.97 K/uL Red Blood Count 4.36 M/uL Hemoglobin 13.5 g/dL Hematocrit 40.0 % Mean Corpuscular Volume 91.7 fL Mean Corpuscular Hemoglobin 31.0 pg Mean Corpuscular Hemoglobin Concent 33.8 g/dl Platelet Count 158 K/uL Mean Platelet Volume 10.4 fL Neutrophils (%) (Auto) 72.5 % Lymphocytes (%) (Auto) 16.2 % Monocytes (%) (Auto) 9.8 % Eosinophils (%) (Auto) 1.3 % Basophils (%) (Auto) 0.1 % Neutrophils # (Auto) 5.05 K/uL Lymphocytes # (Auto) 1.13 K/uL Monocytes # (Auto) 0.68 K/uL Eosinophils # (Auto) 0.09 K/uL Basophils # (Auto) 0.01 K/uL RDW Standard Deviation 48.1 fL RDW Coefficient of Variation 14.2 % Immature Granulocyte % (Auto) 0.1 % Immature Granulocyte # (Auto) 0.01 K/uL Sodium Level 139 mmol/L Potassium Level 3.2 mmol/L Chloride Level 107 mmol/L Carbon Dioxide Level 25 mmol/L Anion Gap 7.0 mmol/L Blood Urea Nitrogen 11 mg/dl Creatinine 0.90 mg/dl Est Creatinine Clear Calc Drug Dose 85.3 ml/min Estimated GFR () 94.5 Estimated GFR (Non- 81.5 BUN/Creatinine Ratio 12.7 Random Glucose 107 mg/dl Estimated Average Glucose 123 mg/dl Hemoglobin A1c 5.9 % Calcium Level 8.9 mg/dl Pro-B-Type Natriuretic Peptide 6978 pg/ml Imaging: CT head- Evolution of the large subacute right MCA territory infarction which predominantly involves the right temporal lobe measuring up to 9.5 cm in greatest dimension. There is sulcal effacement from the cytotoxic edema without midline shift or intracranial hemorrhage. Motion degraded exam. TTE- * The left ventricular wall motion is normal. * Left ventricular ejection Fraction = 55-60%. * There is mild mitral annular calcification. * There is mild mitral regurgitation. * The aortic valve is severely calcified. * Aortic valve imaging suggest severe aortic * stenosis not confirmed by Doppler examination. The Doppler exam may have underestimated the degree of stenosis. * There is no significant aortic regurgitation. * Severe aortic valve stenosis is suspected. * Compared to the report of the prior outpatient study performed 01/03/18 at [facility], there has been no significant interval change. Exam: Gen: lying in bed opens eye when stimulated pushes away when asked to move moving arms and legs spontaneously Current Inpatient Medications Medications (Trade) Dose Ordered Sig/Barry Route Start Time Stop Time Status Last Admin Dose Admin Miscellaneous Information (Pharmacist Discharge Med Rec Consult) 1 ea UD PRN N/A 02/28/18 11:45 03/30/18 11:44 Pantoprazole Sodium 40 mg/ Syringe 10 ml @ 5 mls/min DAILY@11 IV 03/01/18 11:00 03/31/18 10:59 03/01/18 13:06 5 MLS/MIN Ranitidine HCl 50 mg/Dextrose 102 ml @ 200 mls/hr Q8H IV 02/28/18 22:00 03/30/18 14:59 03/01/18 05:32 200 MLS/HR Aspirin (Aspirin Supp) 300 mg DAILY MA 03/01/18 09:00 03/31/18 08:59 Metoprolol Tartrate (Lopressor Iv) 2.5 mg Q6H IV. 03/01/18 00:00 03/02/18 23:59 03/01/18 05:38 2.5 MG Miscellaneous Information (Pending Order) 1 ea TODAY@0800 N/A 03/02/18 08:00 03/02/18 08:01 Heparin Sodium/ Dextrose 500 ml @ 32 mls/hr [id number] IV 03/01/18 10:00 03/31/18 09:59 03/01/18 10:43 32 MLS/HR Potassium Chloride 100 ml @ 100 mls/hr Q1H IV 03/01/18 14:07 03/01/18 17:06 Impression 77 year old with extensive PMH and acute right frontal and temporal lobe ischemic event Plan 1. aspirin added and plans to start coumadin would bridge with heparin if no contraindications- however may not be a candidate due fall risk post stroke. Cards started heparin gtts today after repeat CT head had no hemorrhagic conversion- concerns due to large size of stroke it will still convert to hemorrhage. heparin gtts stopped will continue aspirin. repeat CT head in 1 week if no hemorrhage will readdress anticoagulation 2. PT/OT speech for discharge needs 3. repeat CT head in am to r/o hemorrhagic conversion- only evolution of stroke 4. MRI -unable due to pacemaker 5. TTE- unchanged from previous TTE per cards 6. carotid doppler- or CTA head and neck- vascular malformations 7. interrogate pacemaker had been done 8. full exam once patient is more cooperative 9. liberal blood pressure for 24-48 hours 10. then slowly decrease and optimize HTN, DL, DM LDL <70- lipid profile ordered pending 11. npo for now until more awake and cooperative 12. will order aspirin for now MA Pt seen and examined. CT head shows large R hemisphere infarct. Carotids neg. Pt more alert, less agitated. Tries to say single word. Cannot name, or follow command. No gaze pref. Apparent L homonymous hemianopsis. L arm appears to be near antigravity. REflexes symm, toes down. Imp Large R hemisphere infarct, likely cardioembolic. HOld heparin at present due to risk of hemorrhagic transformation. Continue asa. Repeat CT head 1 week and then consider anticoagulation. Unclear whether he will be a long-term AC candidate. ALEYDA Patel MD I have seen and discussed above patient with Dr Nelida Patel, neurology
[2018-03-01] MEDS ORDERED: CLOPIDOGREL BISULFATE 75 MG TAB PO ONE (15:30)
[2018-03-01 17:20] LABS: PTT PATIENT 32.6 SECONDS (21.0-31.0)
[2018-03-01] MEDS: POTASSIUM CHLR 10 MEQ / WTR 100 ML IV SCH ×4 (17:55→22:16)
[2018-03-01] MEDS ORDERED: HEPARIN IV BOLUS 7,000 UNIT in SYRINGE 0 ML IV ONE (18:15)
[2018-03-02] VITALS (8 sets, daily range): BP systolic 154–172; BP diastolic 89–96; PULSE 63–77; TEMP 36.6–37.1; O2SAT 92–97
[2018-03-02] MEDS: RANITIDINE IV 50 MG in DEXTROSE 5% 100ML 100 ML IV SCH ×4 (00:19→21:46)
[2018-03-02 00:57] LABS: PTT PATIENT 24.3 SECONDS (21.0-31.0)
[2018-03-02] MEDS: METOPROLOL TARTRATE 1 MG/ML VIAL IV. SCH ×4 (06:00→18:38)
[2018-03-02 07:36] LABS: BASO % 0.5 %; BASO ABS # 0.04 K/uL (0-0.2); EOS % 3.7 %; EOS ABS # 0.28 K/uL (0-0.5); HEMATOCRIT 40.7 % (42-52); HEMOGLOBIN 14.5 g/dL (14.0-18.0); IG# 0.01 K/uL (0.00-0.02); LYMPH % 15.9 %; LYMPH ABS # 1.22 K/uL (1.2-3.4); MEAN CELL VOLUME 91.9 fL (80-100); MEAN CORPUSCULAR HEMOGLOBIN 32.7 pg (25-34); MEAN CORPUSCULAR HGB CONC 35.6 g/dl (32-36); MEAN PLATELET VOLUME 9.8 fL (7.4-10.4); MONO % 13.6 %; MONO ABS # 1.04 K/uL (0.11-0.59); NEUT % 66.2 %; NEUT ABS # 5.07 K/uL (1.4-6.5); PLATELET COUNT 140 K/uL (130-400); RED CELL DISTRIBUTION WIDTH CV 14.3 % (11.5-14.5); RED CELL DISTRIBUTION WIDTH SD 48.4 fL (36.4-46.3); WHITE BLOOD COUNT 7.66 K/uL (4.8-10.8)
[2018-03-02 07:43] LABS: PTT PATIENT 25.2 SECONDS (21.0-31.0)
[2018-03-02 08:13] LABS: CALCIUM 8.9 mg/dl (8.5-10.1); CREATININE 0.97 mg/dl (0.60-1.40); POTASSIUM 3.3 mmol/L (3.5-5.1)
[2018-03-02] MEDS: ASPIRIN 300 MG SUPP PR SCH (09:00)
--- NOTE | 2018-03-02 11:15 | PROGRESS NOTE ---
DATE: 03/02/2018 I am seeing Mr. Kennedy in followup of a large right MCA infarction in the setting of atrial fibrillation. Carotids have been negative. Echo shows no clear source for embolic stroke. He has been at baseline. No seizure activity is noted. Nurses note that he will wake up, try to say a few things, usually saying okay. Can get agitated at times and frustrated. He fell asleep soon before I arrived. He was sleepy, arousable, moved all 4 extremities. No fixed gaze preference and was mute. IMPRESSION: Right middle cerebral artery infarction, which is large radiographically and modestly large clinically. Recommend waiting 1 week, repeating CT of the head to rule out again large or hemorrhagic infarction. Continue antiplatelet therapy until then and at that time making a decision regarding long-term anticoagulant use. We will follow with you. BRITTANY
--- NOTE | 2018-03-02 13:21 | Progress Note ---
Subjective Date of Service: Mar 02, 2018. Subjective Pt evaluation today including: conversation w/ patient, physical exam, lab review, review of studies, review of inpatient medication list Saw/examined the patient in room 204 He arouses to stimuli, but nonverbal at this time attempts to speak but cannot Problem List Medical Problems: (1) VIANEY (acute kidney injury) Status: Acute (2) Contusion of multiple sites Status: Acute (3) Elevated troponin Status: Acute (4) Flank pain Status: Acute (5) HTN (hypertension) Status: Acute (6) Left leg cellulitis Status: Acute (7) Left sided chest pain Status: Acute (8) Lumbar strain Status: Acute (9) Poorly-controlled hypertension Status: Acute (10) Stroke Status: Acute Review of Systems Difficult to obtain due to patient's mental status Medications Current Inpatient Medications Medications (Trade) Dose Ordered Sig/Barry Route Start Time Stop Time Status Last Admin Dose Admin Miscellaneous Information (Pharmacist Discharge Med Rec Consult) 1 ea UD PRN N/A 02/28/18 11:45 03/30/18 11:44 Pantoprazole Sodium 40 mg/ Syringe 10 ml @ 5 mls/min DAILY@11 IV 03/01/18 11:00 03/31/18 10:59 03/01/18 13:06 5 MLS/MIN Ranitidine HCl 50 mg/Dextrose 102 ml @ 200 mls/hr Q8H IV 02/28/18 22:00 03/30/18 14:59 03/02/18 06:02 200 MLS/HR Aspirin (Aspirin Supp) 300 mg DAILY MS 03/01/18 09:00 03/31/18 08:59 Metoprolol Tartrate (Lopressor Iv) 2.5 mg Q6H IV. 03/01/18 00:00 03/02/18 23:59 03/01/18 05:38 2.5 MG Clopidogrel Bisulfate (plAVix TAB) 75 mg QAM PO 03/02/18 09:00 04/01/18 08:59 Objective Vital Signs Date Time Temp Pulse Resp B/P (MAP) Pulse Ox O2 Delivery O2 Flow Rate FiO2 03/02/18 11:47 36.7 77 16 158/96 (116) 97 Room Air 03/02/18 08:00 95 Room Air 03/02/18 07:11 36.8 70 18 171/92 (118) 93 Room Air 03/02/18 05:42 69 155/89 (111) 03/02/18 03:58 36.7 66 20 172/91 (118) 97 Room Air 03/01/18 23:11 36.9 69 22 149/89 (109) 93 Room Air 03/01/18 20:01 37.0 63 19 176/119 (138) 93 Room Air 03/01/18 20:00 95 Room Air 03/01/18 18:00 166/92 03/01/18 16:00 36.8 94 20 161/102 (121) 95 Room Air Physical Exam General Appearance: no apparent distress Respiratory/Chest: lungs clear, normal breath sounds, no respiratory distress, no accessory muscle use Cardiovascular: regular rate, rhythm, no edema, no murmur Extremities: normal inspection, no pedal edema Neurologic/Psychiatric: no motor/sensory deficits, alert, normal mood/affect Laboratory Results Last 24 Hours Test 03/01/18 17:04 03/01/18 18:44 03/02/18 00:09 03/02/18 07:18 Activated Partial Thromboplast Time 32.6 SECONDS 24.3 SECONDS Partial Thromboplastin Ratio 1.3 0.9 Bedside Glucose 142 mg/dl 122 mg/dl Test 03/02/18 07:24 03/02/18 11:37 White Blood Count 7.66 K/uL Red Blood Count 4.43 M/uL Hemoglobin 14.5 g/dL Hematocrit 40.7 % Mean Corpuscular Volume 91.9 fL Mean Corpuscular Hemoglobin 32.7 pg Mean Corpuscular Hemoglobin Concent 35.6 g/dl Platelet Count 140 K/uL Mean Platelet Volume 9.8 fL Neutrophils (%) (Auto) 66.2 % Lymphocytes (%) (Auto) 15.9 % Monocytes (%) (Auto) 13.6 % Eosinophils (%) (Auto) 3.7 % Basophils (%) (Auto) 0.5 % Neutrophils # (Auto) 5.07 K/uL Lymphocytes # (Auto) 1.22 K/uL Monocytes # (Auto) 1.04 K/uL Eosinophils # (Auto) 0.28 K/uL Basophils # (Auto) 0.04 K/uL RDW Standard Deviation 48.4 fL RDW Coefficient of Variation 14.3 % Immature Granulocyte % (Auto) 0.1 % Immature Granulocyte # (Auto) 0.01 K/uL Activated Partial Thromboplast Time 25.2 SECONDS Partial Thromboplastin Ratio 1.0 Sodium Level 139 mmol/L Potassium Level 3.3 mmol/L Chloride Level 105 mmol/L Carbon Dioxide Level 27 mmol/L Anion Gap 8.0 mmol/L Blood Urea Nitrogen 14 mg/dl Creatinine 0.97 mg/dl Est Creatinine Clear Calc Drug Dose 78.2 ml/min Estimated GFR () 86.3 Estimated GFR (Non- 74.5 BUN/Creatinine Ratio 14.6 Random Glucose 106 mg/dl Calcium Level 8.9 mg/dl Magnesium Level 2.3 mg/dl Bedside Glucose 120 mg/dl Assessment and Plan This is a 77 year old obese male with a past medical history of TIA, chronic atrial fibrillation not on anticoagulation, tachy-frandy syndrome s/p permanent pacemaker, CAD, HTN, HLD, BPH, GERD - presents with an acute CVA Acute R Fronto-Temporal CVA 03/02 - appreciate neuro input - aspirin + Plavix - PT/OT/speech - stopped IV heparin at this time - repeat Head CT in one week and decide on anticoagulation at that time 03/01 - repeat Head CT showing large evolving CVA - no hemorrhagic conversion, so will start IV heparin at this time - NPO due to mental status - will speak with neurology; may need palliative care consulting pending prognosis 02/28 - likely due to atrial fibrillation and not being on anticoagulation - as per records, he refused anticoagulation - spoke with family, they agree that he should be started on anticoagulation at this time - will await repeat head CT in AM (03/01) - will start IV heparin if no hemorrhagic conversion - continue aspirin and statin - PT/OT/speech consulted Chronic Atrial Fibrillation - started on IV Lopressor q6 scheduled for rate control Severe Aortic Stenosis - may need cardiology input - for now, monitor for overload CAD - continue Imdur, statin, aspirin, b-nelson, RAISA-I Tachy-Frandy Syndrome s/p Permanent Pacemaker HTN - will allow permissive HTN, BP range should be around 160-180 - given a few doses of IV Labetalol and IV Vasotec - awaiting speech eval DVT ppx - SCDs FULL CODE
[2018-03-02] MEDS ORDERED: POTASSIUM CHLORIDE 10 MEQ TABCR PO ONE (13:30)
[2018-03-02] MEDS ORDERED: POTASSIUM CHLR 10 MEQ / WTR 100 ML IV ONE (13:30)
[2018-03-02] MEDS: CLOPIDOGREL BISULFATE 75 MG TAB PO SCH (13:53)
[2018-03-02] MEDS: PANTOprazole INJ 40 MG in SYRINGE 0 ML IV SCH (13:53)
--- NOTE | 2018-03-02 14:46 | Cardiology Follow-Up ---
Subjective General Date of Service: Mar 02, 2018. Pt evaluation today including: conversation w/ patient, physical exam, chart review, lab review, review of studies, review of inpatient medication list History of Present Illness The patient is a 77 year old male seen in follow-up. Patient awake with expressive aphasia. Repeats "OK". Not following commands well. Telemetry demonstrates rate controlled atrial fibrillation. Anticoagulation discontinued by neurology due to concerns regarding hemorrhagic conversion. Allergies Coded Allergies: Morphine (Verified Allergy, Intermediate, RASH, 12/05/16) PRURITUS [place] (Verified Allergy, Intermediate, Itchy rash, 12/05/16) Oxycodone (Verified Allergy, Intermediate, RASH, 12/05/16) PRURITUS Penicillins (Verified Allergy, Intermediate, HIVES, 12/05/16) Cantaloupe (Verified Allergy, Mild, ITCHY FACE AND BACK, 12/05/16) ITCHY FACE AND BACK Chocolate (Verified Allergy, Mild, NAUSEA, 12/05/16) [place] (Verified Allergy, Mild, ITCHY FACE AND BACK, 12/05/16) Naproxen (Verified Allergy, Unknown, ., 12/05/16) Verapamil (Verified Allergy, Unknown, 12/05/16) White Fish (Verified Allergy, Unknown, CATFISH, 12/05/16) Sulfa Antibiotics (Verified Adverse Reaction, Intermediate, RASH, 12/05/16) Both legs became very swollen and red Furosemide (Unverified Adverse Reaction, Unknown, CAN'T VOID, 12/05/16) Hydrochlorothiazide (Unverified Adverse Reaction, Unknown, CAN'T VOID, 12/05) Social History Smoking Status: Former Smoker (Per family no history of smoking) Hx Tobacco Use In Past Year?: No Hx Alcohol Use - Type And Amou: No Hx Substance Use - Type And Am: No Problem List Medical Problems: (1) VIANEY (acute kidney injury) Status: Acute (2) Contusion of multiple sites Status: Acute (3) Elevated troponin Status: Acute (4) Flank pain Status: Acute (5) HTN (hypertension) Status: Acute (6) Left leg cellulitis Status: Acute (7) Left sided chest pain Status: Acute (8) Lumbar strain Status: Acute (9) Poorly-controlled hypertension Status: Acute (10) Stroke Status: Acute Review of Systems Respiratory: No cough, No sputum, No wheezing, No shortness of breath, No dyspnea at rest, No hemoptysis Cardiac: No chest pain, No orthopnea, No PND, No edema, No palpitations Physical Exam Vital Signs Last Vital Signs Documentation Date Time Temp Pulse Resp B/P (MAP) Pulse Ox O2 Delivery O2 Flow Rate FiO2 03/02/18 12:00 80 158/96 03/02/18 11:47 36.7 16 97 Room Air Physical Exam Constitutional: General Apperance: overweight Level of Distress: NAD Neck: supple, trachea midline Lungs: Auscultation: breath sounds normal (Poor effort), no wheezing, no rales/ crackles Cardiovascular: Heart Auscultation: II/ GILLIAN, irregular rate rhythm Abdomen: Bowel Sounds: normal Inspection & Palpation: soft, non-distended, no tenderness, guarding & rebound Extremities: no cyanosis, edema (1+ bilateral lower extremity edema with stasis changes) Neurologic: Gait & Station: pertinent finding (Patient awake and alert, not following commands well) Assessment and Plan Assessment and Plan Final impression 1. Subacute /evolving large right MCA territory CVA -Likely cardioembolic event secondary to chronic atrial fibrillation 2. Chronic rate controlled atrial fibrillation with patient previously declining anticoagulation 3. Severe by 2D imaging not confirmed by Doppler interrogation 4. Hypertension - allow permissive hypertension RECOMMENDATIONS/PLAN: Continue dual antiplatelet therapy. Appreciate neurology input with plans to repeat CT of the head in 1 week. Pending review of that study patient may be offered long-term oral anticoagulation. Plan to begin antihypertensive therapy in a.m. recommend initial therapy with low-dose RAISA inhibitor. Will continue to follow during hospitalization. Laboratory Results Last 24 Hours Test 03/01/18 17:04 03/01/18 18:44 03/02/18 00:09 03/02/18 07:18 Activated Partial Thromboplast Time 32.6 SECONDS 24.3 SECONDS Partial Thromboplastin Ratio 1.3 0.9 Bedside Glucose 142 mg/dl 122 mg/dl Test 03/02/18 07:24 03/02/18 11:37 White Blood Count 7.66 K/uL Red Blood Count 4.43 M/uL Hemoglobin 14.5 g/dL Hematocrit 40.7 % Mean Corpuscular Volume 91.9 fL Mean Corpuscular Hemoglobin 32.7 pg Mean Corpuscular Hemoglobin Concent 35.6 g/dl Platelet Count 140 K/uL Mean Platelet Volume 9.8 fL Neutrophils (%) (Auto) 66.2 % Lymphocytes (%) (Auto) 15.9 % Monocytes (%) (Auto) 13.6 % Eosinophils (%) (Auto) 3.7 % Basophils (%) (Auto) 0.5 % Neutrophils # (Auto) 5.07 K/uL Lymphocytes # (Auto) 1.22 K/uL Monocytes # (Auto) 1.04 K/uL Eosinophils # (Auto) 0.28 K/uL Basophils # (Auto) 0.04 K/uL RDW Standard Deviation 48.4 fL RDW Coefficient of Variation 14.3 % Immature Granulocyte % (Auto) 0.1 % Immature Granulocyte # (Auto) 0.01 K/uL Activated Partial Thromboplast Time 25.2 SECONDS Partial Thromboplastin Ratio 1.0 Sodium Level 139 mmol/L Potassium Level 3.3 mmol/L Chloride Level 105 mmol/L Carbon Dioxide Level 27 mmol/L Anion Gap 8.0 mmol/L Blood Urea Nitrogen 14 mg/dl Creatinine 0.97 mg/dl Est Creatinine Clear Calc Drug Dose 78.2 ml/min Estimated GFR () 86.3 Estimated GFR (Non- 74.5 BUN/Creatinine Ratio 14.6 Random Glucose 106 mg/dl Calcium Level 8.9 mg/dl Magnesium Level 2.3 mg/dl Bedside Glucose 120 mg/dl
[2018-03-03] VITALS (9 sets, daily range): BP systolic 89–169; BP diastolic 56–96; PULSE 65–95; TEMP 36.4–37; O2SAT 92–95
[2018-03-03] MEDS: RANITIDINE IV 50 MG in DEXTROSE 5% 100ML 100 ML IV SCH (05:42)
[2018-03-03 06:30] LABS: PTT PATIENT 24.9 SECONDS (21.0-31.0)
[2018-03-03 06:49] LABS: CALCIUM 8.7 mg/dl (8.5-10.1); CREATININE 1.12 mg/dl (0.60-1.40); POTASSIUM 3.5 mmol/L (3.5-5.1)
[2018-03-03 07:28] LABS: BASO % 0.6 %; BASO ABS # 0.04 K/uL (0-0.2); EOS % 6.6 %; EOS ABS # 0.45 K/uL (0-0.5); HEMATOCRIT 40.8 % (42-52); HEMOGLOBIN 13.8 g/dL (14.0-18.0); IG# 0.01 K/uL (0.00-0.02); LYMPH % 16.8 %; LYMPH ABS # 1.15 K/uL (1.2-3.4); MEAN CELL VOLUME 92.5 fL (80-100); MEAN CORPUSCULAR HEMOGLOBIN 31.3 pg (25-34); MEAN CORPUSCULAR HGB CONC 33.8 g/dl (32-36); MEAN PLATELET VOLUME 10.9 fL (7.4-10.4); MONO % 12.1 %; MONO ABS # 0.83 K/uL (0.11-0.59); NEUT % 63.8 %; NEUT ABS # 4.36 K/uL (1.4-6.5); PLATELET COUNT 155 K/uL (130-400); RED CELL DISTRIBUTION WIDTH CV 14.3 % (11.5-14.5); RED CELL DISTRIBUTION WIDTH SD 48.4 fL (36.4-46.3); WHITE BLOOD COUNT 6.84 K/uL (4.8-10.8)
[2018-03-03] MEDS ORDERED: CAPTOPRIL 25 MG TAB PO ONE (09:15)
[2018-03-03] MEDS ORDERED: AMLODIPINE BESYLATE 5 MG TAB PO ONE (09:15)
--- NOTE | 2018-03-03 09:50 | Cardiology Follow-Up ---
Subjective General Date of Service: Mar 03, 2018. Pt evaluation today including: conversation w/ patient, physical exam, chart review, lab review, review of studies, review of inpatient medication list History of Present Illness The patient is a 77 year old male seen in follow-up. Remains a phasic. He is awake and alert. Following commands more appropriately today. Telemetry demonstrates atrial fibrillation with occasional demand ventricular pacing. Marked T-wave abnormality noted on ECG likely result of cerebrovascular accident. No new issues overnight. Allergies Coded Allergies: Morphine (Verified Allergy, Intermediate, RASH, 12/05/16) PRURITUS [place] (Verified Allergy, Intermediate, Itchy rash, 12/05/16) Oxycodone (Verified Allergy, Intermediate, RASH, 12/05/16) PRURITUS Penicillins (Verified Allergy, Intermediate, HIVES, 12/05/16) Cantaloupe (Verified Allergy, Mild, ITCHY FACE AND BACK, 12/05/16) ITCHY FACE AND BACK Chocolate (Verified Allergy, Mild, NAUSEA, 12/05/16) [place] (Verified Allergy, Mild, ITCHY FACE AND BACK, 12/05/16) Naproxen (Verified Allergy, Unknown, ., 12/05/16) Verapamil (Verified Allergy, Unknown, 12/05/16) White Fish (Verified Allergy, Unknown, CATFISH, 12/05/16) Sulfa Antibiotics (Verified Adverse Reaction, Intermediate, RASH, 12/05/16) Both legs became very swollen and red Furosemide (Unverified Adverse Reaction, Unknown, CAN'T VOID, 12/05/16) Hydrochlorothiazide (Unverified Adverse Reaction, Unknown, CAN'T VOID, 12/05) Social History Smoking Status: Former Smoker (Per family no history of smoking) Hx Tobacco Use In Past Year?: No Hx Alcohol Use - Type And Amou: No Hx Substance Use - Type And Am: No Problem List Medical Problems: (1) VIANEY (acute kidney injury) Status: Acute (2) Contusion of multiple sites Status: Acute (3) Elevated troponin Status: Acute (4) Flank pain Status: Acute (5) HTN (hypertension) Status: Acute (6) Left leg cellulitis Status: Acute (7) Left sided chest pain Status: Acute (8) Lumbar strain Status: Acute (9) Poorly-controlled hypertension Status: Acute (10) Stroke Status: Acute Review of Systems Respiratory: No cough, No wheezing, No shortness of breath, No dyspnea on exertion, No dyspnea at rest, No hemoptysis Cardiac: No chest pain, No orthopnea, No PND, No edema, No claudication, No palpitations Physical Exam Vital Signs Last Vital Signs Documentation Date Time Temp Pulse Resp B/P (MAP) Pulse Ox O2 Delivery O2 Flow Rate FiO2 03/03/18 07:06 37.0 66 21 162/83 (109) 93 Room Air Physical Exam Constitutional: General Apperance: overweight Level of Distress: NAD Head: normocephalic Neck: supple, trachea midline Lungs: Auscultation: breath sounds normal (Poor effort), no wheezing, no rales/ crackles Cardiovascular: Heart Auscultation: II/ GILLIAN, irregular rate rhythm Abdomen: Bowel Sounds: normal Inspection & Palpation: soft, non-distended, no tenderness, guarding & rebound Extremities: no cyanosis, edema (1+ bilateral lower extremity edema with stasis changes) Neurologic: Gait & Station: pertinent finding (Patient awake and alert, not following commands well) Cranial Nerves: grossly intact Assessment and Plan Assessment and Plan Final impression 1. Subacute /evolving large right MCA territory CVA -Likely cardioembolic event secondary to chronic atrial fibrillation 2. Chronic rate controlled atrial fibrillation with patient previously declining anticoagulation 3. Severe by 2D imaging not confirmed by Doppler interrogation 4. Hypertension -uncontrolled 5. Tachy-esdras syndrome with pacemaker RECOMMENDATIONS/PLAN: Restart captopril 50 mg 3 times daily. Amlodipine also will be restarted today at a reduced dose, 5 mg daily. Hydralazine will remain on hold. Continue dual antiplatelet therapy. Appreciate neurology input with plans to repeat CT of the head in 1 week. Pending review of that study patient may be offered long- term oral anticoagulation. Will continue to follow during hospitalization. Laboratory Results Last 24 Hours Test 03/02/18 11:37 03/02/18 16:39 03/02/18 21:44 03/03/18 06:03 Bedside Glucose 120 mg/dl 110 mg/dl 117 mg/dl White Blood Count 6.84 K/uL Red Blood Count 4.41 M/uL Hemoglobin 13.8 g/dL Hematocrit 40.8 % Mean Corpuscular Volume 92.5 fL Mean Corpuscular Hemoglobin 31.3 pg Mean Corpuscular Hemoglobin Concent 33.8 g/dl Platelet Count 155 K/uL Mean Platelet Volume 10.9 fL Neutrophils (%) (Auto) 63.8 % Lymphocytes (%) (Auto) 16.8 % Monocytes (%) (Auto) 12.1 % Eosinophils (%) (Auto) 6.6 % Basophils (%) (Auto) 0.6 % Neutrophils # (Auto) 4.36 K/uL Lymphocytes # (Auto) 1.15 K/uL Monocytes # (Auto) 0.83 K/uL Eosinophils # (Auto) 0.45 K/uL Basophils # (Auto) 0.04 K/uL RDW Standard Deviation 48.4 fL RDW Coefficient of Variation 14.3 % Immature Granulocyte % (Auto) 0.1 % Immature Granulocyte # (Auto) 0.01 K/uL Activated Partial Thromboplast Time 24.9 SECONDS Partial Thromboplastin Ratio 1.0 Sodium Level 140 mmol/L Potassium Level 3.5 mmol/L Chloride Level 105 mmol/L Carbon Dioxide Level 26 mmol/L Anion Gap 9.0 mmol/L Blood Urea Nitrogen 21 mg/dl Creatinine 1.12 mg/dl Est Creatinine Clear Calc Drug Dose 67.2 ml/min Estimated GFR () 72.5 Estimated GFR (Non- 62.6 BUN/Creatinine Ratio 19.0 Random Glucose 122 mg/dl Calcium Level 8.7 mg/dl Test 03/03/18 07:38 Bedside Glucose 111 mg/dl
[2018-03-03] MEDS: CLOPIDOGREL BISULFATE 75 MG TAB PO SCH (10:10)
[2018-03-03] MEDS: ATORVASTATIN 40 MG TAB PO SCH (10:10)
--- NOTE | 2018-03-03 12:27 | Progress Note ---
Internal Med Progress Note Date of Service: Mar 03, 2018. Provider Documentation: SUBJECTIVE: The patient was seen and examined in telemetry unit He is a 77-year-old obese male with history of TIA and chronic A. fib was admitted with acute stroke Clinically little bit better since admission but still remains noncommunicative verbally Denies any acute symptoms OBJECTIVE: Vital Signs-as noted below Exam: General-no apparent distress Eyes-normal ENT-normal Neck-supple Lungs-clear to auscultate bilaterally with decreased breath sounds at bases Heart-irregular, S1-S2 with 2/6 ESM aortic area Abdomen-benign ,soft, nontender, no organomegaly Extremities-negative for any edema Neuro-alert and awake Noncommunicative verbally but tries to communicate Generally weak with left side weaker than right No facial asymmetry Lab data as noted below. ASSESSMENT & PLAN: This is a 77 year old obese male with a past medical history of TIA, chronic atrial fibrillation not on anticoagulation, tachy-esdras syndrome s/p permanent pacemaker, CAD, HTN, HLD, BPH, GERD - presents with an acute CVA Acute R Fronto-Temporal CVA - likely due to atrial fibrillation and not being on anticoagulation - as per records, he refused anticoagulation - FAMILY agreed that he should be started on anticoagulation at this time - repeat Head CT showing large evolving CVA - appreciate neuro input - aspirin + Plavix for now -PT/OT /Speech therapy -Not communicating well but not in any distress - repeat Head CT in one week and decide on anticoagulation at that time Chronic Atrial Fibrillation - started on IV Lopressor q6 scheduled for rate control -Refused Anticoagulation in past - repeat Head CT in one week and decide on anticoagulation at that time Severe Aortic Stenosis - appreciate cardiology input - for now, monitor for overload -ECHO:: * Echocardiogram study is technically limited but adequate for the referral indication. * The left ventricular wall motion is normal. * Left ventricular ejection Fraction = 55-60%. * There is mild mitral annular calcification. * There is mild mitral regurgitation. * The aortic valve is severely calcified. * Aortic valve imaging suggest severe aortic * stenosis not confirmed by Doppler examination. The Doppler exam may have underestimated the degree of stenosis. * There is no significant aortic regurgitation. * Severe aortic valve stenosis is suspected. * Compared to the report of the prior outpatient study performed 01/03/18 at [facility], there has been no significant interval change. CAD - continue Imdur, statin, aspirin, b-nelson, RAISA-I Tachy-Esdras Syndrome s/p Permanent Pacemaker HTN - will allow permissive HTN, BP range should be around 160-180 - given a few doses of IV Labetalol and IV Vasotec - medication adjustment as per cardiology DVT ppx - SCDs FULL CODE Vital Signs: Date Time Temp Pulse Resp B/P (MAP) Pulse Ox O2 Delivery O2 Flow Rate FiO2 03/03/18 11:51 76 95 03/03/18 11:50 36.4 72 18 143/74 (97) 93 Room Air 03/03/18 07:06 37.0 66 21 162/83 (109) 93 Room Air 03/03/18 03:28 36.7 65 19 153/77 (102) 92 Room Air 03/02/18 23:33 37.1 63 18 154/94 (114) 93 Room Air 03/02/18 20:35 37.1 03/02/18 20:00 Room Air 03/02/18 18:38 75 180/94 03/02/18 15:19 36.6 75 20 171/93 (119) 92 Room Air Lab Results: Results Past 24 Hours Test 03/02/18 16:39 03/02/18 21:44 03/03/18 06:03 03/03/18 07:38 Range/Units Bedside Glucose 110 117 111 70-99 mg/dl White Blood Count 6.84 4.8-10.8 K/uL Red Blood Count 4.41 4.7-6.1 M/uL Hemoglobin 13.8 14.0-18.0 g/dL Hematocrit 40.8 42-52 % Mean Corpuscular Volume 92.5 80-100 fL Mean Corpuscular Hemoglobin 31.3 25-34 pg Mean Corpuscular Hemoglobin Concent 33.8 32-36 g/dl Platelet Count 155 130-400 K/uL Mean Platelet Volume 10.9 7.4-10.4 fL Neutrophils (%) (Auto) 63.8 % Lymphocytes (%) (Auto) 16.8 % Monocytes (%) (Auto) 12.1 % Eosinophils (%) (Auto) 6.6 % Basophils (%) (Auto) 0.6 % Neutrophils # (Auto) 4.36 1.4-6.5 K/uL Lymphocytes # (Auto) 1.15 1.2-3.4 K/uL Monocytes # (Auto) 0.83 0.11-0.59 K/uL Eosinophils # (Auto) 0.45 0-0.5 K/uL Basophils # (Auto) 0.04 0-0.2 K/uL RDW Standard Deviation 48.4 36.4-46.3 fL RDW Coefficient of Variation 14.3 11.5-14.5 % Immature Granulocyte % (Auto) 0.1 % Immature Granulocyte # (Auto) 0.01 0.00-0.02 K/uL Activated Partial Thromboplast Time 24.9 21.0-31.0 SECONDS Partial Thromboplastin Ratio 1.0 Sodium Level 140 136-145 mmol/L Potassium Level 3.5 3.5-5.1 mmol/L Chloride Level 105 98-107 mmol/L Carbon Dioxide Level 26 21-32 mmol/L Anion Gap 9.0 3-11 mmol/L Blood Urea Nitrogen 21 7-18 mg/dl Creatinine 1.12 0.60-1.40 mg/dl Est Creatinine Clear Calc Drug Dose 67.2 ml/min Estimated GFR () 72.5 Estimated GFR (Non- 62.6 BUN/Creatinine Ratio 19.0 10-20 Random Glucose 122 70-99 mg/dl Calcium Level 8.7 8.5-10.1 mg/dl
[2018-03-03] MEDS: PANTOprazole INJ 40 MG in SYRINGE 0 ML IV SCH (13:01)
--- NOTE | 2018-03-03 13:17 | PROGRESS NOTE ---
DATE: 03/03/2018 SUBJECTIVE: Mr. Kennedy is in followup of a right MCA infarction. He is doing well. He has been eating a little bit with speech therapy. He is more alert. He has been singling melodies. He says the word okay. Follows rare simple commands. OBJECTIVE: VITAL SIGNS: 36.4, 72, 18, 143/74, 93%. HEENT: No fixed gaze preference on today's exam. I cannot tell if he has a field cut to confrontation. MUSCULOSKELETAL: He uses both arms, but let the left arm less so and the left arm tends to drift when lifted legs. NEUROLOGIC: The patient does not understand the command. IMPRESSION: Right middle cerebral artery infarction, secondary to atrial fibrillation, stable improving mental status. PLAN: Repeat CT of the brain 1 week after admission and will make a determination at that point if it is appropriate to place him on anticoagulant therapy. In the interim, continue antiplatelet therapy. We will follow with you. BRITTANY
[2018-03-03] MEDS: CAPTOPRIL 25 MG TAB PO SCH ×3 (14:00→21:05)
[2018-03-03] MEDS: RANITIDINE HCL SYRUP 150 MG/10 ML UDC PO SCH (21:05)
[2018-03-04] VITALS (7 sets, daily range): BP systolic 130–167; BP diastolic 75–104; PULSE 63–76; TEMP 36.6–37.1; O2SAT 93–96; Ht 170.2 cm; Wt 117.2 kg
[2018-03-04 05:55] LABS: HEMATOCRIT 41.8 % (42-52); HEMOGLOBIN 13.8 g/dL (14.0-18.0); MEAN CELL VOLUME 93.1 fL (80-100); MEAN CORPUSCULAR HEMOGLOBIN 30.7 pg (25-34); MEAN PLATELET VOLUME 10.9 fL (7.4-10.4); PLATELET COUNT 134 K/uL (130-400); RED CELL DISTRIBUTION WIDTH CV 14.2 % (11.5-14.5); RED CELL DISTRIBUTION WIDTH SD 48.2 fL (36.4-46.3); WHITE BLOOD COUNT 7.44 K/uL (4.8-10.8)
[2018-03-04 06:23] LABS: CREATININE 1.06 mg/dl (0.60-1.40); POTASSIUM 3.5 mmol/L (3.5-5.1)
[2018-03-04 06:24] LABS: PHOSPHORUS 4.4 mg/dl (2.5-4.9)
[2018-03-04] MEDS: ATORVASTATIN 40 MG TAB PO SCH (08:07)
[2018-03-04] MEDS: AMLODIPINE BESYLATE 5 MG TAB PO SCH (08:07)
[2018-03-04] MEDS: ASPIRIN 325 MG ECTAB PO SCH (08:07)
[2018-03-04] MEDS: CAPTOPRIL 25 MG TAB PO SCH ×3 (08:07→20:30)
[2018-03-04] MEDS: RANITIDINE HCL SYRUP 150 MG/10 ML UDC PO SCH ×2 (08:08→20:30)
[2018-03-04] MEDS: CLOPIDOGREL BISULFATE 75 MG TAB PO SCH (08:08)
--- NOTE | 2018-03-04 11:17 | Cardiology Follow-Up ---
Subjective General Date of Service: Mar 04, 2018. Chief Complaint: CVA Pt evaluation today including: conversation w/ patient, physical exam, chart review, lab review, review of studies, review of inpatient medication list History of Present Illness Frustrated. Aphasic. Nodes "no" to chest pain or palpitations. Allergies Coded Allergies: Morphine (Verified Allergy, Intermediate, RASH, 12/05/16) PRURITUS [place] (Verified Allergy, Intermediate, Itchy rash, 12/05/16) Oxycodone (Verified Allergy, Intermediate, RASH, 12/05/16) PRURITUS Penicillins (Verified Allergy, Intermediate, HIVES, 12/05/16) Cantaloupe (Verified Allergy, Mild, ITCHY FACE AND BACK, 12/05/16) ITCHY FACE AND BACK Chocolate (Verified Allergy, Mild, NAUSEA, 12/05/16) [place] (Verified Allergy, Mild, ITCHY FACE AND BACK, 12/05/16) Naproxen (Verified Allergy, Unknown, ., 12/05/16) Verapamil (Verified Allergy, Unknown, 12/05/16) White Fish (Verified Allergy, Unknown, CATFISH, 12/05/16) Sulfa Antibiotics (Verified Adverse Reaction, Intermediate, RASH, 12/05/16) Both legs became very swollen and red Furosemide (Unverified Adverse Reaction, Unknown, CAN'T VOID, 12/05/16) Hydrochlorothiazide (Unverified Adverse Reaction, Unknown, CAN'T VOID, 12/05) Social History Smoking Status: Former Smoker (Per family no history of smoking) Hx Tobacco Use In Past Year?: No Hx Alcohol Use - Type And Amou: No Hx Substance Use - Type And Am: No Problem List Medical Problems: (1) VIANEY (acute kidney injury) Status: Acute (2) Contusion of multiple sites Status: Acute (3) Elevated troponin Status: Acute (4) Flank pain Status: Acute (5) HTN (hypertension) Status: Acute (6) Left leg cellulitis Status: Acute (7) Left sided chest pain Status: Acute (8) Lumbar strain Status: Acute (9) Poorly-controlled hypertension Status: Acute (10) Stroke Status: Acute Review of Systems Respiratory: No cough, No sputum, No wheezing, No shortness of breath, No dyspnea on exertion, No dyspnea at rest, No hemoptysis Cardiac: + edema, No chest pain, No orthopnea, No PND, No claudication, No palpitations Physical Exam Vital Signs Last Vital Signs Documentation Date Time Temp Pulse Resp B/P (MAP) Pulse Ox O2 Delivery O2 Flow Rate FiO2 03/04/18 08:00 Room Air 03/04/18 07:15 36.8 64 14 161/92 (115) 95 Physical Exam Constitutional: General Apperance: overweight Level of Distress: NAD Head: normocephalic Neck: pertinent finding (No overt JVD) Lungs: Auscultation: breath sounds normal (Poor effort), no wheezing, no rales/ crackles, no rhonchi Cardiovascular: Heart Auscultation: II/ GILLIAN, irregular rate rhythm Peripheral Pulses: Radial Pulse: normal on the left, normal on the right Dorsalis Pedis Pulse: decreased on the left, decreased on the right Abdomen: Bowel Sounds: normal Inspection & Palpation: soft, non-distended, no tenderness, guarding & rebound Extremities: no cyanosis, edema (Mild edema. Stasis changes) Neurologic: Gait & Station: pertinent finding (Aphasic ) Assessment and Plan Assessment and Plan Large right MCA territory cerebrovascular accident. Chronic atrial fibrillation with a controlled ventricular response, previously declining anticoagulation. 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 Dual antiplatelet therapy for now. CT of the head one week after admission; Neurology to determine if/when it is appropriate to initiate anticoagulant therapy. Cardiology Attending Physician: Patient seen and examined at the bedside. A phasic. Blood pressure improving. PE: Heart: Irregular, 1/6 systolic ejection murmur. Lungs: Clear bilateral, no rales, rhonchi, wheeze. Neuro: Aphasic. A/P: Agree with findings and plan as outlined above in PA-C note. Restart labetalol today. Continue to monitor blood pressure. Restart anticoagulation per discretion of neurology. Jefferson Lackey DO, [facility] Laboratory Results Last 24 Hours Test 03/03/18 11:34 03/03/18 16:21 03/03/18 20:53 03/04/18 05:27 Bedside Glucose 114 mg/dl 109 mg/dl 114 mg/dl White Blood Count 7.44 K/uL Red Blood Count 4.49 M/uL Hemoglobin 13.8 g/dL Hematocrit 41.8 % Mean Corpuscular Volume 93.1 fL Mean Corpuscular Hemoglobin 30.7 pg Mean Corpuscular Hemoglobin Concent 33.0 g/dl RDW Standard Deviation 48.2 fL RDW Coefficient of Variation 14.2 % Platelet Count 134 K/uL Mean Platelet Volume 10.9 fL Sodium Level 142 mmol/L Potassium Level 3.5 mmol/L Chloride Level 107 mmol/L Carbon Dioxide Level 26 mmol/L Anion Gap 8.0 mmol/L Blood Urea Nitrogen 28 mg/dl Creatinine 1.06 mg/dl Est Creatinine Clear Calc Drug Dose 69.2 ml/min Estimated GFR () 77.0 Estimated GFR (Non- 66.4 BUN/Creatinine Ratio 26.4 Random Glucose 111 mg/dl Calcium Level 9.0 mg/dl Phosphorus Level 4.4 mg/dl Magnesium Level 2.4 mg/dl Test 03/04/18 07:16 Bedside Glucose 115 mg/dl
[2018-03-04] MEDS: PANTOprazole INJ 40 MG in SYRINGE 0 ML IV SCH (13:09)
--- NOTE | 2018-03-04 14:55 | Progress Note ---
Internal Med Progress Note Date of Service: Mar 04, 2018. Provider Documentation: SUBJECTIVE: The patient was seen and examined in telemetry unit He is a 77-year-old obese male with history of TIA and chronic A. fib was admitted with acute stroke Clinically little bit better since admission but still remains noncommunicative verbally Denies any acute symptoms 03/04: Out of bed on a chair without any distress Complicating with worse leg okay, I am fine Has severe lack of interpretation OBJECTIVE: Vital Signs-as noted below Exam: General-no apparent distress Eyes-normal ENT-normal Neck-supple Lungs-clear to auscultate bilaterally with decreased breath sounds at bases Heart-irregular, S1-S2 with 2/6 ESM aortic area Abdomen-benign ,soft, nontender, no organomegaly Extremities-negative for any edema Neuro-alert and awake Communicating with was like I am okay, thanks but no real meaningful communication Generally weak with left side weaker than right No facial asymmetry Lab data as noted below. ASSESSMENT & PLAN: This is a 77 year old obese male with a past medical history of TIA, chronic atrial fibrillation not on anticoagulation, tachy-esdras syndrome s/p permanent pacemaker, CAD, HTN, HLD, BPH, GERD - presents with an acute CVA Acute R Fronto-Temporal CVA - likely due to atrial fibrillation and not being on anticoagulation - as per records, he refused anticoagulation - FAMILY agreed that he should be started on anticoagulation at this time - repeat Head CT showing large evolving CVA - appreciate neuro input and recommendation - aspirin + Plavix for now -PT/OT /Speech therapy -Not communicating well but not in any distress - repeat Head CT in one week and decide on anticoagulation at that time -Does not have any understanding and/or meaningful communication -Has been eating and drinking well Chronic Atrial Fibrillation - started on IV Lopressor q6 scheduled for rate control -Refused Anticoagulation in past - repeat Head CT in one week and decide on anticoagulation at that time Severe Aortic Stenosis - appreciate cardiology input - for now, monitor for overload -ECHO:: * Echocardiogram study is technically limited but adequate for the referral indication. * The left ventricular wall motion is normal. * Left ventricular ejection Fraction = 55-60%. * There is mild mitral annular calcification. * There is mild mitral regurgitation. * The aortic valve is severely calcified. * Aortic valve imaging suggest severe aortic * stenosis not confirmed by Doppler examination. The Doppler exam may have underestimated the degree of stenosis. * There is no significant aortic regurgitation. * Severe aortic valve stenosis is suspected. * Compared to the report of the prior outpatient study performed 01/03/18 at [facility], there has been no significant interval change. CAD - continue Imdur, statin, aspirin, b-nelson, RAISA-I Tachy-Esdras Syndrome s/p Permanent Pacemaker HTN - will allow permissive HTN, BP range should be around 160-180 - given a few doses of IV Labetalol and IV Vasotec - medication adjustment as per cardiology -Plan to start oral labetalol 50 mg twice daily DVT ppx - SCDs FULL CODE Disposition As per social service the family members want to take him home Decision will depend on how he does with physical therapy Vital Signs: Date Time Temp Pulse Resp B/P (MAP) Pulse Ox O2 Delivery O2 Flow Rate FiO2 03/04/18 12:00 Room Air 03/04/18 11:30 36.8 67 16 130/75 (93) 96 Room Air 03/04/18 08:00 Room Air 03/04/18 07:15 36.8 64 14 161/92 (115) 95 Room Air 03/04/18 03:20 37.1 75 19 146/104 (118) 93 Room Air 03/03/18 23:30 37.0 71 19 153/96 (115) 93 Room Air 03/03/18 20:00 Room Air 03/03/18 19:45 36.8 79 22 146/87 (106) 92 Room Air 03/03/18 15:59 37.0 95 22 89/56 (67) 94 Trach Collar 03/03/18 15:56 36.5 70 18 169/96 (120) 93 Room Air Lab Results: Results Past 24 Hours Test 03/03/18 16:21 03/03/18 20:53 03/04/18 05:27 03/04/18 07:16 Range/Units Bedside Glucose 109 114 115 70-99 mg/dl White Blood Count 7.44 4.8-10.8 K/uL Red Blood Count 4.49 4.7-6.1 M/uL Hemoglobin 13.8 14.0-18.0 g/dL Hematocrit 41.8 42-52 % Mean Corpuscular Volume 93.1 80-100 fL Mean Corpuscular Hemoglobin 30.7 25-34 pg Mean Corpuscular Hemoglobin Concent 33.0 32-36 g/dl RDW Standard Deviation 48.2 36.4-46.3 fL RDW Coefficient of Variation 14.2 11.5-14.5 % Platelet Count 134 130-400 K/uL Mean Platelet Volume 10.9 7.4-10.4 fL Sodium Level 142 136-145 mmol/L Potassium Level 3.5 3.5-5.1 mmol/L Chloride Level 107 98-107 mmol/L Carbon Dioxide Level 26 21-32 mmol/L Anion Gap 8.0 3-11 mmol/L Blood Urea Nitrogen 28 7-18 mg/dl Creatinine 1.06 0.60-1.40 mg/dl Est Creatinine Clear Calc Drug Dose 69.2 ml/min Estimated GFR () 77.0 Estimated GFR (Non- 66.4 BUN/Creatinine Ratio 26.4 10-20 Random Glucose 111 70-99 mg/dl Calcium Level 9.0 8.5-10.1 mg/dl Phosphorus Level 4.4 2.5-4.9 mg/dl Magnesium Level 2.4 1.8-2.4 mg/dl Test 03/04/18 11:13 Range/Units Bedside Glucose 108 70-99 mg/dl
--- NOTE | 2018-03-04 15:03 | Neurology Progress Notes ---
Neurology Progress Note Date of Service Mar 04, 2018. Elizabeth Null is a 77 year old male who presented to ED with change MS. He has a PMH VIANEY, HTN, CAD afib, esdras/tachy syndrome with pacemaker, DL, TIA, DJD, history of polio as a child. 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 He is complaint with his other medications but he had refused any anticoagulation therapy for his afib. He was started on aspirin in the ED but no tPa was given. His blood pressure was systolic 200 on arrival. He is currently lying in bed he is more awake with voice command. unable to obtain ROS at this time Objective Date Time Temp Pulse Resp B/P (MAP) Pulse Ox O2 Delivery O2 Flow Rate FiO2 03/04/18 12:00 Room Air 03/04/18 11:30 36.8 67 16 130/75 (93) 96 Room Air 03/04/18 08:00 Room Air 03/04/18 07:15 36.8 64 14 161/92 (115) 95 Room Air 03/04/18 03:20 37.1 75 19 146/104 (118) 93 Room Air 03/03/18 23:30 37.0 71 19 153/96 (115) 93 Room Air 03/03/18 20:00 Room Air 03/03/18 19:45 36.8 79 22 146/87 (106) 92 Room Air 03/03/18 15:59 37.0 95 22 89/56 (67) 94 Trach Collar 03/03/18 15:56 36.5 70 18 169/96 (120) 93 Room Air Last 24 Hours Test 03/03/18 16:21 03/03/18 20:53 03/04/18 05:27 03/04/18 07:16 Bedside Glucose 109 mg/dl 114 mg/dl 115 mg/dl White Blood Count 7.44 K/uL Red Blood Count 4.49 M/uL Hemoglobin 13.8 g/dL Hematocrit 41.8 % Mean Corpuscular Volume 93.1 fL Mean Corpuscular Hemoglobin 30.7 pg Mean Corpuscular Hemoglobin Concent 33.0 g/dl RDW Standard Deviation 48.2 fL RDW Coefficient of Variation 14.2 % Platelet Count 134 K/uL Mean Platelet Volume 10.9 fL Sodium Level 142 mmol/L Potassium Level 3.5 mmol/L Chloride Level 107 mmol/L Carbon Dioxide Level 26 mmol/L Anion Gap 8.0 mmol/L Blood Urea Nitrogen 28 mg/dl Creatinine 1.06 mg/dl Est Creatinine Clear Calc Drug Dose 69.2 ml/min Estimated GFR () 77.0 Estimated GFR (Non- 66.4 BUN/Creatinine Ratio 26.4 Random Glucose 111 mg/dl Calcium Level 9.0 mg/dl Phosphorus Level 4.4 mg/dl Magnesium Level 2.4 mg/dl Test 03/04/18 11:13 Bedside Glucose 108 mg/dl Imaging: no new imaging Exam: Gen: alert with voice command lungs course breath sounds CV RRR squeezes with right hand, pulls pushes, left lift against gravity actively hold up for a few seconds stimulation bilateral LE slight movement orthopedic deformities bilateral LE says "ouch " with LE stimulation Current Inpatient Medications Medications (Trade) Dose Ordered Sig/Barry Route Start Time Stop Time Status Last Admin Dose Admin Miscellaneous Information (Pharmacist Discharge Med Rec Consult) 1 ea UD PRN N/A 02/28/18 11:45 03/30/18 11:44 Pantoprazole Sodium 40 mg/ Syringe 10 ml @ 5 mls/min DAILY@11 IV 03/01/18 11:00 03/31/18 10:59 03/04/18 13:09 5 MLS/MIN Clopidogrel Bisulfate (plAVix TAB) 75 mg QAM PO 03/02/18 09:00 04/01/18 08:59 03/04/18 08:08 75 MG Atorvastatin Calcium (Lipitor Tab) 40 mg QAM PO 03/03/18 09:00 04/02/18 08:59 03/04/18 08:07 40 MG Captopril (Capoten Tab) 50 mg TID PO 03/03/18 14:00 04/02/18 13:59 03/04/18 13:10 50 MG Amlodipine Besylate (Norvasc Tab) 5 mg QAM PO 03/04/18 09:00 04/03/18 08:59 03/04/18 08:07 5 MG Aspirin (Ecotrin Tab) 325 mg QAM PO 03/04/18 09:00 04/03/18 08:59 03/04/18 08:07 325 MG Ranitidine HCl (zANTac SYRUP) 150 mg BID PO 03/03/18 21:00 04/02/18 20:59 03/04/18 08:08 150 MG Impression 77 year old with extensive PMH and acute right frontal and temporal lobe ischemic event Plan 1. aspirin added and plans to start coumadins- however may not be a candidate due fall risk post stroke. Heparin is currently on hold due to size of stroke and risk of hemorrhagic conversion 2. PT/OT speech for discharge needs 3. repeat CT head in am to r/o hemorrhagic conversion- only evolution of stroke 4. MRI -unable due to pacemaker 5. TTE- unchanged from previous TTE per cards 6. carotid doppler- or CTA head and neck- vascular malformations 7. interrogate pacemaker -done 8. full exam once patient is more cooperative 9. liberal blood pressure for 24-48 hours 10. then slowly decrease and optimize HTN, DL, DM LDL <70- lipid profile ordered pending 11. npo for now until more awake and cooperative 12. will order aspirin for now AL 13. repeat CT head one week from date of stroke then will discuss whether safe to start heparin gtt. I have seen and discussed above patient with Dr Nelida Patel, neurology Pt appears much the same, says OK repeatedly, follows no commands. Blinks to threat bl, LUE at least 3/5 reflexes symm. Imp embolic R mca infarct, repeat CT head on then determination re anticoagulation. Anti-plt tx in interim. I think pt will need inpt rehab. ALEYDA Patel MD
[2018-03-05] VITALS (9 sets, daily range): BP systolic 142–177; BP diastolic 81–100; PULSE 61–86; TEMP 36.3–37; O2SAT 92–95
[2018-03-05] MEDS: AMLODIPINE BESYLATE 5 MG TAB PO SCH ×2 (09:00→09:49)
[2018-03-05] MEDS: RANITIDINE HCL SYRUP 150 MG/10 ML UDC PO SCH ×3 (09:00→20:34)
[2018-03-05] MEDS: LABETALOL HCL 100 MG TAB PO SCH ×3 (09:00→20:34)
[2018-03-05] MEDS: ASPIRIN 325 MG ECTAB PO SCH ×2 (09:00→09:49)
[2018-03-05] MEDS: CLOPIDOGREL BISULFATE 75 MG TAB PO SCH ×2 (09:00→09:49)
[2018-03-05] MEDS: CAPTOPRIL 25 MG TAB PO SCH ×4 (09:00→20:33)
[2018-03-05] MEDS: ATORVASTATIN 40 MG TAB PO SCH ×2 (09:00→09:49)
[2018-03-05] MEDS: PANTOprazole INJ 40 MG in SYRINGE 0 ML IV SCH (09:50)
--- NOTE | 2018-03-05 10:33 | Cardiology Follow-Up ---
Subjective General Date of Service: Mar 05, 2018. Chief Complaint: CVA Pt evaluation today including: conversation w/ patient, physical exam, chart review, lab review, review of studies, review of inpatient medication list History of Present Illness Aphasic. Telemetry: Chronic atrial fibrillation with intermittent ventricular pacing. Allergies Coded Allergies: Morphine (Verified Allergy, Intermediate, RASH, 12/05/16) PRURITUS [place] (Verified Allergy, Intermediate, Itchy rash, 12/05/16) Oxycodone (Verified Allergy, Intermediate, RASH, 12/05/16) PRURITUS Penicillins (Verified Allergy, Intermediate, HIVES, 12/05/16) Cantaloupe (Verified Allergy, Mild, ITCHY FACE AND BACK, 12/05/16) ITCHY FACE AND BACK Chocolate (Verified Allergy, Mild, NAUSEA, 12/05/16) [place] (Verified Allergy, Mild, ITCHY FACE AND BACK, 12/05/16) Naproxen (Verified Allergy, Unknown, ., 12/05/16) Verapamil (Verified Allergy, Unknown, 12/05/16) White Fish (Verified Allergy, Unknown, CATFISH, 12/05/16) Sulfa Antibiotics (Verified Adverse Reaction, Intermediate, RASH, 12/05/16) Both legs became very swollen and red Furosemide (Unverified Adverse Reaction, Unknown, CAN'T VOID, 12/05/16) Hydrochlorothiazide (Unverified Adverse Reaction, Unknown, CAN'T VOID, 12/05) Social History Smoking Status: Former Smoker (Per family no history of smoking) Hx Tobacco Use In Past Year?: No Hx Alcohol Use - Type And Amou: No Hx Substance Use - Type And Am: No Problem List Medical Problems: (1) VIANEY (acute kidney injury) Status: Acute (2) Contusion of multiple sites Status: Acute (3) Elevated troponin Status: Acute (4) Flank pain Status: Acute (5) HTN (hypertension) Status: Acute (6) Left leg cellulitis Status: Acute (7) Left sided chest pain Status: Acute (8) Lumbar strain Status: Acute (9) Poorly-controlled hypertension Status: Acute (10) Stroke Status: Acute Review of Systems Respiratory: No cough, No sputum, No wheezing, No shortness of breath, No dyspnea on exertion, No dyspnea at rest, No hemoptysis Cardiac: + edema, No chest pain, No orthopnea, No PND, No claudication Physical Exam Vital Signs Last Vital Signs Documentation Date Time Temp Pulse Resp B/P (MAP) Pulse Ox O2 Delivery O2 Flow Rate FiO2 03/05/18 10:01 61 158/93 (114) 03/05/18 07:07 36.7 19 92 Room Air Physical Exam Constitutional: General Apperance: overweight Level of Distress: NAD Head: normocephalic Neck: pertinent finding (No overt JVD) Lungs: Auscultation: breath sounds normal (Poor effort), no wheezing, no rales/ crackles, no rhonchi Cardiovascular: Heart Auscultation: II/ GILLIAN, irregular rate rhythm Peripheral Pulses: Radial Pulse: normal on the left, normal on the right Dorsalis Pedis Pulse: decreased on the left, decreased on the right Abdomen: Bowel Sounds: normal Inspection & Palpation: soft, non-distended, no tenderness, guarding & rebound Extremities: no cyanosis, edema (Mild edema. Stasis changes) Neurologic: Gait & Station: pertinent finding (Aphasic ) Assessment and Plan Assessment and Plan Admission with a large right MCA territory cerebrovascular accident. Chronic atrial fibrillation with a controlled ventricular response, previously declining anticoagulation. 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 Labetalol restarted this morning at 50 mg twice a day, previously prescribed 200 mg BID. He previously required hydralazine 50 mg TID, 10 mg of amlodipine, and 60 mg of Imdur. On dual antiplatelet therapy for now. Head CT planned for with Neurology to determine if/when it is appropriate to initiate anticoagulation. Please call with any questions or concerns. Cardiology Attending Physician: Patient seen and examined at the bedside. Aphasic. Blood pressure improving. PE: Heart: Irregular, 1/6 systolic ejection murmur. Lungs: Clear bilateral, no rales, rhonchi, wheeze. Neuro: Aphasic. A/P: Agree with findings and plan as outlined above in PA-C note. Restart labetalol. BP goal < 130/[address] head . Restart anticoagulation per discretion of neurology. Jeffreson Lackey DO F[facility] Laboratory Results Last 24 Hours Test 03/04/18 11:13 03/04/18 16:24 03/04/18 20:58 03/05/18 07:27 Bedside Glucose 108 mg/dl 104 mg/dl 122 mg/dl 111 mg/dl
--- NOTE | 2018-03-05 14:36 | Neurology Progress Notes ---
Neurology Progress Note Date of Service Mar 05, 2018. Elizabeth Null is a 77 year old male who presented to ED with change MS. He has a PMH VIANEY, HTN, CAD afib, esdras/tachy syndrome with pacemaker, DL, TIA, DJD, history of polio as a child. 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 He is complaint with his other medications but he had refused any anticoagulation therapy for his afib. He was started on aspirin in the ED but no tPa was given. His blood pressure was systolic 200 on arrival. He is sitting in the bedside chair and moving it forward bouncing it with his legs and lifting with his arms. He is still having receptive aphasia but is now saying words, "Oh my God", "Oh boy". he has been drinking from a coffee cup without difficulty Objective Date Time Temp Pulse Resp B/P (MAP) Pulse Ox O2 Delivery O2 Flow Rate FiO2 03/05/18 12:13 36.9 86 20 151/90 (110) 93 Room Air 03/05/18 10:01 61 158/93 (114) 03/05/18 08:00 92 Room Air 03/05/18 07:07 36.7 72 19 173/81 (111) 92 Room Air 03/05/18 03:17 36.5 71 16 177/84 (115) 95 Room Air 03/05/18 00:00 Room Air 03/04/18 23:30 36.7 63 19 152/79 (103) 94 Room Air 03/04/18 19:37 36.6 76 19 167/95 (119) 93 Room Air 03/04/18 16:00 94 Room Air 03/04/18 15:10 37.0 73 17 149/80 (103) 94 Room Air Last 24 Hours Test 03/04/18 16:24 03/04/18 20:58 03/05/18 07:27 03/05/18 11:22 Bedside Glucose 104 mg/dl 122 mg/dl 111 mg/dl 115 mg/dl Imaging: no new imaging Exam: Gen: alert NAD sitting in bedside chair lungs normal respiratory effort CV RRR looking at examiner and appears to want to say something. "says oh boy" squeezes with right hand using both hands to pull chair forward . left not as active as right can hold against gravity stood up on legs resistant to sit down Current Inpatient Medications Medications (Trade) Dose Ordered Sig/Barry Route Start Time Stop Time Status Last Admin Dose Admin Miscellaneous Information (Pharmacist Discharge Med Rec Consult) 1 ea UD PRN N/A 02/28/18 11:45 03/30/18 11:44 Pantoprazole Sodium 40 mg/ Syringe 10 ml @ 5 mls/min DAILY@11 IV 03/01/18 11:00 03/31/18 10:59 03/05/18 09:50 5 MLS/MIN Clopidogrel Bisulfate (plAVix TAB) 75 mg QAM PO 03/02/18 09:00 04/01/18 08:59 03/04/18 08:08 75 MG Atorvastatin Calcium (Lipitor Tab) 40 mg QAM PO 03/03/18 09:00 04/02/18 08:59 03/04/18 08:07 40 MG Captopril (Capoten Tab) 50 mg TID PO 03/03/18 14:00 04/02/18 13:59 03/04/18 20:30 50 MG Amlodipine Besylate (Norvasc Tab) 5 mg QAM PO 03/04/18 09:00 04/03/18 08:59 03/04/18 08:07 5 MG Aspirin (Ecotrin Tab) 325 mg QAM PO 03/04/18 09:00 04/03/18 08:59 03/04/18 08:07 325 MG Ranitidine HCl (zANTac SYRUP) 150 mg BID PO 03/03/18 21:00 04/02/18 20:59 03/04/18 20:30 150 MG Labetalol HCl (Normodyne Tab) 50 mg BID PO 03/05/18 09:00 04/04/18 08:59 Impression 77 year old with extensive PMH and acute right frontal and temporal lobe ischemic event Plan 1. aspirin added and plans to start coumadin however may not be a candidate due fall risk post stroke. Heparin is currently on hold due to size of stroke and risk of hemorrhagic conversion 2. PT/OT speech for discharge needs- improving 3. repeat CT head in am to r/o hemorrhagic conversion- only evolution of stroke 4. MRI -unable due to pacemaker 5. TTE- unchanged from previous TTE per cards 6. carotid doppler- or CTA head and neck- vascular malformations 7. interrogate pacemaker -done 8. then slowly decrease and optimize HTN, DL, DM LDL <70- lipid profile ordered pending 9. npo for now until more awake and cooperative- advance as tolerated 10. will order aspirin for now SD- may be able to take oral -bed side swallowing should be repeated 12. repeat CT head (03/07) one week from date of stroke (02/28) then will discuss whether safe to start heparin gtt. I have seen and discussed above patient with Dr Nelida Patel, neurology Pt seen and examined, unchanged.Repeated says "OK", possible field cut to left, L arm greater than antigravity/ Has been walking so LE greater than antigravity. Embolic R mca infarct, stable. Follow-up CT , at which point I will make decision re coumadin. MD Karen
--- NOTE | 2018-03-05 15:26 | Progress Note ---
Internal Med Progress Note Date of Service: Mar 05, 2018. Provider Documentation: SUBJECTIVE: The patient was seen and examined in telemetry unit He is a 77-year-old obese male with history of TIA and chronic A. fib was admitted with acute stroke Clinically little bit better since admission but still remains noncommunicative verbally Denies any acute symptoms 03/04: Out of bed on a chair without any distress Complicating with worse leg okay, I am fine Has severe lack of interpretation 03/05; no new symptoms Not been communicating well and following any commands No problem with swallowing OBJECTIVE: Vital Signs-as noted below Exam: General-no apparent distress Eyes-normal ENT-normal Neck-supple Lungs-clear to auscultate bilaterally with decreased breath sounds at bases Heart-irregular, S1-S2 with 2/6 ESM aortic area Abdomen-benign ,soft, nontender, no organomegaly Extremities-negative for any edema Neuro-alert and awake Communicating using a few words like I am okay, thanks but no real meaningful communication Generally weak with left side weaker than right No facial asymmetry Lab data as noted below. ASSESSMENT & PLAN: This is a 77 year old obese male with a past medical history of TIA, chronic atrial fibrillation not on anticoagulation, tachy-esdras syndrome s/p permanent pacemaker, CAD, HTN, HLD, BPH, GERD - presents with an acute CVA Acute R Fronto-Temporal CVA - likely due to atrial fibrillation and not being on anticoagulation - as per records, he refused anticoagulation - FAMILY agreed that he should be started on anticoagulation at this time - repeat Head CT showing large evolving CVA - appreciate neuro input and recommendation - aspirin + Plavix for now -PT/OT /Speech therapy -Not communicating well but not in any distress - repeat Head CT in one week and decide on anticoagulation at that time -Does not have any understanding and/or meaningful communication -Has been eating and drinking well -No new issue Chronic Atrial Fibrillation - started on IV Lopressor q6 scheduled for rate control -Refused Anticoagulation in past - repeat Head CT in one week and decide on anticoagulation at that time related -Likely to have CT at the end of the day tomorrow and decide the issue with anticoagulation Severe Aortic Stenosis - appreciate cardiology input - for now, monitor for overload -ECHO:: * Echocardiogram study is technically limited but adequate for the referral indication. * The left ventricular wall motion is normal. * Left ventricular ejection Fraction = 55-60%. * There is mild mitral annular calcification. * There is mild mitral regurgitation. * The aortic valve is severely calcified. * Aortic valve imaging suggest severe aortic * stenosis not confirmed by Doppler examination. The Doppler exam may have underestimated the degree of stenosis. * There is no significant aortic regurgitation. * Severe aortic valve stenosis is suspected. * Compared to the report of the prior outpatient study performed 01/03/18 at [facility], there has been no significant interval change. CAD - continue Imdur, statin, aspirin, b-nelson, RAISA-I -No acute symptoms Tachy-Esdras Syndrome s/p Permanent Pacemaker HTN - will allow permissive HTN, BP range should be around 160-180 - given a few doses of IV Labetalol and IV Vasotec - medication adjustment as per cardiology -Plan to start oral labetalol 50 mg twice daily -BP is reasonably controlled DVT ppx - SCDs FULL CODE Disposition As per social service the family members want to take him home Decision will depend on how he does with physical therapy Vital Signs: Date Time Temp Pulse Resp B/P (MAP) Pulse Ox O2 Delivery O2 Flow Rate FiO2 03/05/18 15:15 36.9 84 18 142/96 (111) 93 Room Air 03/05/18 12:13 36.9 86 20 151/90 (110) 93 Room Air 03/05/18 10:01 61 158/93 (114) 03/05/18 08:00 92 Room Air 03/05/18 07:07 36.7 72 19 173/81 (111) 92 Room Air 03/05/18 03:17 36.5 71 16 177/84 (115) 95 Room Air 03/05/18 00:00 Room Air 03/04/18 23:30 36.7 63 19 152/79 (103) 94 Room Air 03/04/18 19:37 36.6 76 19 167/95 (119) 93 Room Air 03/04/18 16:00 94 Room Air Lab Results: Results Past 24 Hours Test 03/04/18 16:24 03/04/18 20:58 03/05/18 07:27 03/05/18 11:22 Range/Units Bedside Glucose 104 122 111 115 70-99 mg/dl
[2018-03-06] VITALS (8 sets, daily range): BP systolic 154–207; BP diastolic 86–104; PULSE 77–82; TEMP 36–37; O2SAT 90–93
[2018-03-06] MEDS ORDERED: ACETAMINOPHEN 325 MG TAB PO PRN (02:45)
[2018-03-06 06:25] LABS: HEMATOCRIT 42.2 % (42-52); HEMOGLOBIN 14.1 g/dL (14.0-18.0); MEAN CELL VOLUME 93.2 fL (80-100); MEAN CORPUSCULAR HEMOGLOBIN 31.1 pg (25-34); MEAN CORPUSCULAR HGB CONC 33.4 g/dl (32-36); RED CELL DISTRIBUTION WIDTH CV 14.2 % (11.5-14.5); RED CELL DISTRIBUTION WIDTH SD 48.3 fL (36.4-46.3); WHITE BLOOD COUNT 8.45 K/uL (4.8-10.8)
[2018-03-06 06:51] LABS: MEAN PLATELET VOLUME 11.7 fL (7.4-10.4); PLATELET COUNT 98 K/uL (130-400)
[2018-03-06] MEDS: ATORVASTATIN 40 MG TAB PO SCH (07:48)
[2018-03-06] MEDS: AMLODIPINE BESYLATE 5 MG TAB PO SCH (07:48)
[2018-03-06] MEDS: ASPIRIN 325 MG ECTAB PO SCH (07:48)
[2018-03-06] MEDS: CLOPIDOGREL BISULFATE 75 MG TAB PO SCH (07:48)
[2018-03-06] MEDS: CAPTOPRIL 25 MG TAB PO SCH ×3 (07:49→20:56)
[2018-03-06] MEDS: LABETALOL HCL 100 MG TAB PO SCH (07:49)
[2018-03-06] MEDS: RANITIDINE HCL SYRUP 150 MG/10 ML UDC PO SCH ×2 (07:59→20:56)
--- NOTE | 2018-03-06 10:17 | Cardiology Follow-Up ---
Subjective General Date of Service: Mar 06, 2018. Chief Complaint: CVA Pt evaluation today including: conversation w/ patient, physical exam, chart review, lab review, review of studies, review of inpatient medication list History of Present Illness Aphasic. Hypertensive. Telemetry: Chronic atrial fibrillation with occasional PVC's and intermittent ventricular pacing. Allergies Coded Allergies: Morphine (Verified Allergy, Intermediate, RASH, 12/05/16) PRURITUS [place] (Verified Allergy, Intermediate, Itchy rash, 12/05/16) Oxycodone (Verified Allergy, Intermediate, RASH, 12/05/16) PRURITUS Penicillins (Verified Allergy, Intermediate, HIVES, 12/05/16) Cantaloupe (Verified Allergy, Mild, ITCHY FACE AND BACK, 12/05/16) ITCHY FACE AND BACK Chocolate (Verified Allergy, Mild, NAUSEA, 12/05/16) [place] (Verified Allergy, Mild, ITCHY FACE AND BACK, 12/05/16) Naproxen (Verified Allergy, Unknown, ., 12/05/16) Verapamil (Verified Allergy, Unknown, 12/05/16) White Fish (Verified Allergy, Unknown, CATFISH, 12/05/16) Sulfa Antibiotics (Verified Adverse Reaction, Intermediate, RASH, 12/05/16) Both legs became very swollen and red Furosemide (Unverified Adverse Reaction, Unknown, CAN'T VOID, 12/05/16) Hydrochlorothiazide (Unverified Adverse Reaction, Unknown, CAN'T VOID, 12/05) Social History Smoking Status: Former Smoker (Per family no history of smoking) Hx Tobacco Use In Past Year?: No Hx Alcohol Use - Type And Amou: No Hx Substance Use - Type And Am: No Problem List Medical Problems: (1) VIANEY (acute kidney injury) Status: Acute (2) Contusion of multiple sites Status: Acute (3) Elevated troponin Status: Acute (4) Flank pain Status: Acute (5) HTN (hypertension) Status: Acute (6) Left leg cellulitis Status: Acute (7) Left sided chest pain Status: Acute (8) Lumbar strain Status: Acute (9) Poorly-controlled hypertension Status: Acute (10) Stroke Status: Acute Review of Systems Respiratory: No cough, No dyspnea at rest, No hemoptysis Cardiac: + edema Physical Exam Vital Signs Last Vital Signs Documentation Date Time Temp Pulse Resp B/P (MAP) Pulse Ox O2 Delivery O2 Flow Rate FiO2 03/06/18 08:15 Room Air 03/06/18 07:04 36.6 80 24 176/93 (120) 90 Physical Exam Constitutional: Level of Distress: NAD Neck: pertinent finding (No overt JVD) Lungs: Auscultation: breath sounds normal (Poor effort), no wheezing, no rales/ crackles, no rhonchi Cardiovascular: Heart Auscultation: II/ GILLIAN, irregular rate rhythm Peripheral Pulses: Dorsalis Pedis Pulse: decreased on the left, decreased on the right Abdomen: Bowel Sounds: normal Inspection & Palpation: no tenderness, guarding & rebound Extremities: no cyanosis, no edema, no ulcers Neurologic: Gait & Station: pertinent finding (Aphasic ) Assessment and Plan Assessment and Plan Admission with a large right MCA territory cerebrovascular accident. Chronic atrial fibrillation with a controlled ventricular response, previously declining anticoagulation. Tachy-esdras syndrome with single chamber pacemaker implantation Severe aortic valve stenosis by 2D imaging, not confirmed by Doppler interrogation Hypertension, uncontrolled Dyslipidemia RECOMMENDATIONS/PLAN: Increase Labetalol to 100 mg twice a day (patient previously prescribed 200 mg BID). Note: Patient previously required hydralazine 50 mg TID, 10 mg of amlodipine, and 60 mg of Imdur. Dual antiplatelet therapy for now. Head CT planned for tomorrow with Neurology to determine if/when it is appropriate to initiate anticoagulation. Please call with any questions or concerns. Cardiology Attending Physician: Patient seen and examined at the bedside. Aphasic. PE: Heart: Irregular, 1/6 systolic ejection murmur. Lungs: Clear bilateral, no rales, rhonchi, wheeze. Neuro: Aphasic. A/P: Agree with findings and plan as outlined above in PA-C note. Titrate labetalol today to improve blood pressure control. BP goal < 130/[address] head . Continue dual antiplatelet therapy for the time being. Restart anticoagulation per discretion of neurology. Jefferson Lackey DO, [facility] Laboratory Results Last 24 Hours Test 03/05/18 11:22 03/06/18 05:54 Bedside Glucose 115 mg/dl White Blood Count 8.45 K/uL Red Blood Count 4.53 M/uL Hemoglobin 14.1 g/dL Hematocrit 42.2 % Mean Corpuscular Volume 93.2 fL Mean Corpuscular Hemoglobin 31.1 pg Mean Corpuscular Hemoglobin Concent 33.4 g/dl RDW Standard Deviation 48.3 fL RDW Coefficient of Variation 14.2 % Platelet Count 98 K/uL Mean Platelet Volume 11.7 fL Platelet Estimate DECREASED
[2018-03-06 10:42] LABS: CALCIUM 9.1 mg/dl (8.5-10.1); CREATININE 1.09 mg/dl (0.60-1.40); POTASSIUM 3.7 mmol/L (3.5-5.1)
[2018-03-06] MEDS: PANTOprazole INJ 40 MG in SYRINGE 0 ML IV SCH (11:16)
--- NOTE | 2018-03-06 11:36 | Progress Note ---
Internal Med Progress Note Date of Service: Mar 06, 2018. Provider Documentation: SUBJECTIVE: The patient was seen and examined in telemetry unit He is a 77-year-old obese male with history of TIA and chronic A. fib was admitted with acute stroke Clinically little bit better since admission but still remains noncommunicative verbally Denies any acute symptoms 03/04: Out of bed on a chair without any distress Complicating with worse leg okay, I am fine Has severe lack of interpretation 03/05; no new symptoms Not been communicating well and following any commands No problem with swallowing 03/06: Remains stable with the high blood pressure Denies any symptoms OBJECTIVE: Vital Signs-as noted below Exam: General-no apparent distress Eyes-normal ENT-normal Neck-supple Lungs-clear to auscultate bilaterally with decreased breath sounds at bases Heart-irregular, S1-S2 with 2/6 ESM aortic area Abdomen-benign ,soft, nontender, no organomegaly Extremities-negative for any edema Neuro-alert and awake Communicating using a few words like I am okay, thanks but no real meaningful communication Generally weak with left side weaker than right No facial asymmetry Lab data as noted below. ASSESSMENT & PLAN: This is a 77 year old obese male with a past medical history of TIA, chronic atrial fibrillation not on anticoagulation, tachy-esdras syndrome s/p permanent pacemaker, CAD, HTN, HLD, BPH, GERD - presents with an acute CVA Acute R Fronto-Temporal CVA - likely due to atrial fibrillation and not being on anticoagulation - as per records, he refused anticoagulation - FAMILY agreed that he should be started on anticoagulation at this time - repeat Head CT showing large evolving CVA - appreciate neuro input and recommendation - aspirin + Plavix for now -PT/OT /Speech therapy-appreciate input -Not communicating well but not in any distress - repeat Head CT in one week and decide on anticoagulation at that time -Does not have any understanding and/or meaningful communication -Has been eating and drinking well -We will have them repeat CT of the head tomorrow and decide on anticoagulation Chronic Atrial Fibrillation - started on IV Lopressor q6 scheduled for rate control -Refused Anticoagulation in past - repeat Head CT in one week and decide on anticoagulation at that time related -Likely to have CT at the end of the day tomorrow and decide the issue with anticoagulation Severe Aortic Stenosis - appreciate cardiology input - for now, monitor for overload -ECHO:: * Echocardiogram study is technically limited but adequate for the referral indication. * The left ventricular wall motion is normal. * Left ventricular ejection Fraction = 55-60%. * There is mild mitral annular calcification. * There is mild mitral regurgitation. * The aortic valve is severely calcified. * Aortic valve imaging suggest severe aortic * stenosis not confirmed by Doppler examination. The Doppler exam may have underestimated the degree of stenosis. * There is no significant aortic regurgitation. * Severe aortic valve stenosis is suspected. * Compared to the report of the prior outpatient study performed 01/03/18 at [facility], there has been no significant interval change. CAD - continue Imdur, statin, aspirin, b-nelson, RAISA-I -No acute symptoms Tachy-Esdras Syndrome s/p Permanent Pacemaker HTN - will allow permissive HTN, BP range should be around 160-180 - given a few doses of IV Labetalol and IV Vasotec - medication adjustment as per cardiology -Plan to start oral labetalol 50 mg twice daily -Labetalol has been increased to 100 mg twice daily -Blood pressure remains on upper side DVT ppx - SCDs FULL CODE Disposition As per social service the family members want to take him home Decision will depend on how he does with physical therapy Family members will take him home on discharge Vital Signs: Date Time Temp Pulse Resp B/P (MAP) Pulse Ox O2 Delivery O2 Flow Rate FiO2 03/06/18 08:15 Room Air 03/06/18 07:04 36.6 80 24 176/93 (120) 90 Room Air 03/06/18 04:00 37.0 77 22 184/99 (127) 92 Room Air 03/05/18 23:42 Room Air 03/05/18 23:36 37.0 72 19 169/100 (123) 94 Room Air 03/05/18 19:00 36.3 71 27 169/88 (115) 92 Room Air 03/05/18 16:00 93 Room Air 03/05/18 15:15 36.9 84 18 142/96 (111) 93 Room Air 03/05/18 12:13 36.9 86 20 151/90 (110) 93 Room Air Lab Results: Results Past 24 Hours Test 03/06/18 05:54 Range/Units White Blood Count 8.45 4.8-10.8 K/uL Red Blood Count 4.53 4.7-6.1 M/uL Hemoglobin 14.1 14.0-18.0 g/dL Hematocrit 42.2 42-52 % Mean Corpuscular Volume 93.2 80-100 fL Mean Corpuscular Hemoglobin 31.1 25-34 pg Mean Corpuscular Hemoglobin Concent 33.4 32-36 g/dl RDW Standard Deviation 48.3 36.4-46.3 fL RDW Coefficient of Variation 14.2 11.5-14.5 % Platelet Count 98 130-400 K/uL Mean Platelet Volume 11.7 7.4-10.4 fL Platelet Estimate DECREASED Sodium Level 146 136-145 mmol/L Potassium Level 3.7 3.5-5.1 mmol/L Chloride Level 112 98-107 mmol/L Carbon Dioxide Level 29 21-32 mmol/L Anion Gap 5.0 3-11 mmol/L Blood Urea Nitrogen 29 7-18 mg/dl Creatinine 1.09 0.60-1.40 mg/dl Est Creatinine Clear Calc Drug Dose 67.1 ml/min Estimated GFR () 74.4 Estimated GFR (Non- 64.2 BUN/Creatinine Ratio 27.0 10-20 Random Glucose 129 70-99 mg/dl Calcium Level 9.1 8.5-10.1 mg/dl
[2018-03-06] MEDS ORDERED: BISACODYL 10 MG SUPP PR STA (12:55)
[2018-03-06] MEDS ORDERED: PSYLLIUM 58.6% PWD PACK S\\F PO ONE (13:00)
--- NOTE | 2018-03-06 16:43 | PROGRESS NOTE ---
DATE: 03/06/2018 I am seeing Mr. Kennedy in followup of a right MCA infarction likely related to atrial fibrillation. Tomorrow will be 1 week from his last imaging study. Reviewing his labs, his platelet count is 98,000. The patient remains awake, easily irritable. He had no significant spontaneous speech. Could not correctly choose his name. Would not follow any commands. He moved his arms symmetrically. There is no obvious facial droop. IMPRESSION: Right MCA infarction and what appears to be aphasia and probably some apraxia as well. I wonder if he is a left right-handed gentleman. Recommend followup CT of the head tomorrow and some decision making about anticoagulation. I suspect he will be a poor candidate. He does not follow commands. He easily gets agitated and I would suspect he would be a significant fall risk. We can discuss this in more detail tomorrow. Additionally, I note that his platelet count has fallen; recommend further evaluation in terms of etiology. We will follow with you. BRITTANY
[2018-03-06] MEDS ORDERED: ENALAPRILAT IV 1.25 MG in DEXTROSE 5% 25ML 25 ML IV PRN (19:49)
[2018-03-06] MEDS ORDERED: LACTULOSE SYRUP 30 GM/45 ML UDP PO STA (19:52)
[2018-03-06] MEDS: SODIUM CHLORIDE 0.9% 1000ML 1,000 ML IV SCH (19:57)
[2018-03-06] MEDS ORDERED: LABETALOL HCL 100 MG TAB PO SCH (21:00)
[2018-03-07 03:50] VITALS: BP 140/90; PULSE 87; TEMP 36.8; O2SAT 92
[2018-03-07 07:41] VITALS: BP 162/92; PULSE 87; TEMP 36.9; O2SAT 94
[2018-03-07] MEDS: CAPTOPRIL 25 MG TAB PO SCH ×4 (09:00→20:04)
[2018-03-07] MEDS: LABETALOL HCL 100 MG TAB PO SCH ×3 (09:00→20:05)
[2018-03-07] MEDS: AMLODIPINE BESYLATE 5 MG TAB PO SCH (09:00)
[2018-03-07] MEDS: ASPIRIN 325 MG ECTAB PO SCH (09:00)
[2018-03-07] MEDS: CLOPIDOGREL BISULFATE 75 MG TAB PO SCH (09:00)
[2018-03-07] MEDS: RANITIDINE HCL SYRUP 150 MG/10 ML UDC PO SCH ×2 (09:00→19:56)
[2018-03-07] MEDS: ATORVASTATIN 40 MG TAB PO SCH (09:00)
[2018-03-07] MEDS: PSYLLIUM 58.6% PWD PACK S\\F PO SCH (09:00)
--- NOTE | 2018-03-07 09:39 | Cardiology Follow-Up ---
Subjective General Date of Service: Mar 07, 2018. Chief Complaint: CVA Pt evaluation today including: conversation w/ patient, physical exam, chart review, lab review, review of studies, review of inpatient medication list History of Present Illness For follow-up CT of the head today, one week post large MCA territory CVA. Aphasic. Hypertensive. Telemetry: Chronic atrial fibrillation with occasional PVC's and intermittent ventricular pacing. Attending: Patient refusing medications this a.m. Agitated per nursing. Allergies Coded Allergies: Morphine (Verified Allergy, Intermediate, RASH, 12/05/16) PRURITUS [place] (Verified Allergy, Intermediate, Itchy rash, 12/05/16) Oxycodone (Verified Allergy, Intermediate, RASH, 12/05/16) PRURITUS Penicillins (Verified Allergy, Intermediate, HIVES, 12/05/16) Cantaloupe (Verified Allergy, Mild, ITCHY FACE AND BACK, 12/05/16) ITCHY FACE AND BACK Chocolate (Verified Allergy, Mild, NAUSEA, 12/05/16) [place] (Verified Allergy, Mild, ITCHY FACE AND BACK, 12/05/16) Naproxen (Verified Allergy, Unknown, ., 12/05/16) Verapamil (Verified Allergy, Unknown, 12/05/16) White Fish (Verified Allergy, Unknown, CATFISH, 12/05/16) Sulfa Antibiotics (Verified Adverse Reaction, Intermediate, RASH, 12/05/16) Both legs became very swollen and red Furosemide (Unverified Adverse Reaction, Unknown, CAN'T VOID, 12/05/16) Hydrochlorothiazide (Unverified Adverse Reaction, Unknown, CAN'T VOID, 12/05) Social History Smoking Status: Former Smoker (Per family no history of smoking) Hx Tobacco Use In Past Year?: No Hx Alcohol Use - Type And Amou: No Hx Substance Use - Type And Am: No Problem List Medical Problems: (1) VIANEY (acute kidney injury) Status: Acute (2) Contusion of multiple sites Status: Acute (3) Elevated troponin Status: Acute (4) Flank pain Status: Acute (5) HTN (hypertension) Status: Acute (6) Left leg cellulitis Status: Acute (7) Left sided chest pain Status: Acute (8) Lumbar strain Status: Acute (9) Poorly-controlled hypertension Status: Acute (10) Stroke Status: Acute Review of Systems Respiratory: No cough, No sputum, No wheezing, No shortness of breath, No dyspnea on exertion, No dyspnea at rest, No problem reported Cardiac: No chest pain, No orthopnea, No PND, No edema, No claudication, No palpitations Physical Exam Vital Signs Last Vital Signs Documentation Date Time Temp Pulse Resp B/P (MAP) Pulse Ox O2 Delivery O2 Flow Rate FiO2 03/07/18 07:41 36.9 87 21 162/92 (115) 94 Room Air Physical Exam Constitutional: Level of Distress: NAD Neck: pertinent finding (No overt JVD) Cardiovascular: Heart Auscultation: II/ GILLIAN, irregular rate rhythm Assessment and Plan Assessment and Plan Admission with a large right MCA territory cerebrovascular accident. Chronic atrial fibrillation with a controlled ventricular response, previously declining anticoagulation. Tachy-esdras syndrome with single chamber pacemaker implantation Severe aortic valve stenosis by 2D imaging, not confirmed by Doppler interrogation Hypertension, uncontrolled Dyslipidemia RECOMMENDATIONS/PLAN: Increase Labetalol to 200 mg twice a day for additional blood pressure control. I would increase amlodipine then resume Imdur prior to adding back in hydralazine if/when additional blood pressure control is needed. Head CT this morning; Neurology to determine if/when it is appropriate to initiate anticoagulation. Please call with any questions or concerns. Cardiology Attending Physician: Patient seen and examined at the bedside. Aphasic. Refusing medications. Agitated somewhat aggressive this morning towards nursing. PE: Heart: Irregular, 1/6 systolic ejection murmur. Lungs: Clear bilateral, no rales, rhonchi, wheeze. Neuro: Aphasic. A/P: Agree with findings and plan as outlined above in PA-C note. Nursing staff will attempt to administer her a.m. antihypertensive medications. If patient unwilling to take meds will transition to IV therapies to improve blood pressure control. Await results of CT head. BP goal < 130/80 as tolerated. Continue dual antiplatelet therapy for the time being. Restart anticoagulation per discretion of neurology. Jefferson Lackey DO, FACC
--- NOTE | 2018-03-07 11:17 | Progress Note ---
Internal Med Progress Note Date of Service: Mar 07, 2018. Provider Documentation: SUBJECTIVE: The patient was seen and examined in telemetry unit He is a 77-year-old obese male with history of TIA and chronic A. fib was admitted with acute stroke Clinically little bit better since admission but still remains noncommunicative verbally Denies any acute symptoms 03/04: Out of bed on a chair without any distress Complicating with worse leg okay, I am fine Has severe lack of interpretation 03/05; no new symptoms Not been communicating well and following any commands No problem with swallowing 03/06: Remains stable with the high blood pressure Denies any symptoms 03/07: Was seen and examined today, nothing new with him Letter on the nurse reported that he has been aggressive and not been taking his medications He will have CT scan of the head to decide about further anticoagulation OBJECTIVE: Vital Signs-as noted below Exam: General-no apparent distress during the examination this morning Became aggressive thereafter Eyes-normal ENT-normal Neck-supple Lungs-clear to auscultate bilaterally with decreased breath sounds at bases Heart-irregular, S1-S2 with 2/6 ESM aortic area Abdomen-benign ,soft, nontender, no organomegaly Extremities-negative for any edema Neuro-alert and awake Communicating using a few words like I am okay, thanks but no real meaningful communication Generally weak with left side weaker than right No facial asymmetry Lab data as noted below. ASSESSMENT & PLAN: This is a 77 year old obese male with a past medical history of TIA, chronic atrial fibrillation not on anticoagulation, tachy-esdras syndrome s/p permanent pacemaker, CAD, HTN, HLD, BPH, GERD - presents with an acute CVA Acute R Fronto-Temporal CVA - likely due to atrial fibrillation and not being on anticoagulation - as per records, he refused anticoagulation - FAMILY agreed that he should be started on anticoagulation at this time - repeat Head CT showing large evolving CVA - appreciate neuro input and recommendation - aspirin + Plavix for now -PT/OT /Speech therapy-appreciate input -Not communicating well but not in any distress - repeat Head CT in one week and decide on anticoagulation at that time -Does not have any understanding and/or meaningful communication -Has NOT been eating and drinking well -Will have CT of the head to determine further anticoagulation Chronic Atrial Fibrillation - started on IV Lopressor q6 scheduled for rate control -Refused Anticoagulation in past - repeat Head CT in one week and decide on anticoagulation at that time related -Likely to have CT at the end of the day tomorrow and decide the issue with anticoagulation -Rate is controlled Severe Aortic Stenosis - appreciate cardiology input - for now, monitor for overload -ECHO:: * Echocardiogram study is technically limited but adequate for the referral indication. * The left ventricular wall motion is normal. * Left ventricular ejection Fraction = 55-60%. * There is mild mitral annular calcification. * There is mild mitral regurgitation. * The aortic valve is severely calcified. * Aortic valve imaging suggest severe aortic * stenosis not confirmed by Doppler examination. The Doppler exam may have underestimated the degree of stenosis. * There is no significant aortic regurgitation. * Severe aortic valve stenosis is suspected. * Compared to the report of the prior outpatient study performed 01/03/18 at [facility], there has been no significant interval change. CAD - continue Imdur, statin, aspirin, b-nelson, RAISA-I -No acute symptoms Tachy-Esdras Syndrome s/p Permanent Pacemaker HTN - will allow permissive HTN, BP range should be around 160-180 - given a few doses of IV Labetalol and IV Vasotec - medication adjustment as per cardiology -Plan to start oral labetalol 50 mg twice daily -Labetalol has been increased to 100 mg twice daily -Blood pressure is controlled following adjustment of medications DVT ppx - SCDs FULL CODE Disposition As per social service the family members want to take him home Decision will depend on how he does with physical therapy Family members will take him home on discharge We need to discuss with the family members regarding disposition. Will likely need 24-hour care Vital Signs: Date Time Temp Pulse Resp B/P (MAP) Pulse Ox O2 Delivery O2 Flow Rate FiO2 03/07/18 07:41 36.9 87 21 162/92 (115) 94 Room Air 03/07/18 04:00 Room Air 03/07/18 03:50 36.8 87 24 140/90 (107) 92 Room Air 03/06/18 23:34 37.0 81 19 158/96 (116) 90 Room Air 03/06/18 21:00 158/86 (110) 03/06/18 19:22 36.1 78 22 207/94 (131) 91 Room Air 03/06/18 16:00 92 Room Air 03/06/18 15:19 36.0 81 20 171/91 (117) 92 Room Air 03/06/18 11:48 36.8 82 27 154/104 (121) 93 Room Air
[2018-03-07] MEDS: PANTOprazole INJ 40 MG in SYRINGE 0 ML IV SCH (12:46)
[2018-03-07] MEDS: SODIUM CHLORIDE 0.9% 1000ML 1,000 ML IV SCH (12:46)
--- NOTE | 2018-03-07 14:40 | Neurology Progress Notes ---
Neurology Progress Note Date of Service Mar 07, 2018. Elizabeth Null is a 77 year old male who presented to ED with change MS. He has a PMH VIANEY, HTN, CAD afib, esdras/tachy syndrome with pacemaker, DL, TIA, DJD, history of polio as a child. 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 He is complaint with his other medications but he had refused any anticoagulation therapy for his afib. He was started on aspirin in the ED but no tPa was given. His blood pressure was systolic 200 on arrival. He is lying in bed and according to nursing he is refusing all medications and therapy. Family is coming in tomorrow for family meeting and palliative medicine has been consulted for direction of care. Objective Date Time Temp Pulse Resp B/P (MAP) Pulse Ox O2 Delivery O2 Flow Rate FiO2 03/07/18 08:00 Room Air 03/07/18 07:41 36.9 87 21 162/92 (115) 94 Room Air 03/07/18 04:00 Room Air 03/07/18 03:50 36.8 87 24 140/90 (107) 92 Room Air 03/06/18 23:34 37.0 81 19 158/96 (116) 90 Room Air 03/06/18 21:00 158/86 (110) 03/06/18 19:22 36.1 78 22 207/94 (131) 91 Room Air 03/06/18 16:00 92 Room Air 03/06/18 15:19 36.0 81 20 171/91 (117) 92 Room Air no new labs Imaging: no new imaging- CT head was ordered for this am but patient refused Exam: Gen: alert NAD left sided neglect to confrontation lungs course breath sounds CV RRR squeezes with right hand hold left hand in air , LE bilaterally up going toes does not lift legs with command but does move spontaneously Current Inpatient Medications Medications (Trade) Dose Ordered Sig/Barry Route Start Time Stop Time Status Last Admin Dose Admin Miscellaneous Information (Pharmacist Discharge Med Rec Consult) 1 ea UD PRN N/A 02/28/18 11:45 03/30/18 11:44 Pantoprazole Sodium 40 mg/ Syringe 10 ml @ 5 mls/min DAILY@11 IV 03/01/18 11:00 03/31/18 10:59 03/07/18 12:46 5 MLS/MIN Clopidogrel Bisulfate (plAVix TAB) 75 mg QAM PO 03/02/18 09:00 04/01/18 08:59 03/06/18 07:48 75 MG Atorvastatin Calcium (Lipitor Tab) 40 mg QAM PO 03/03/18 09:00 04/02/18 08:59 03/06/18 07:48 40 MG Captopril (Capoten Tab) 50 mg TID PO 03/03/18 14:00 04/02/18 13:59 03/06/18 20:56 50 MG Amlodipine Besylate (Norvasc Tab) 5 mg QAM PO 03/04/18 09:00 04/03/18 08:59 03/06/18 07:48 5 MG Aspirin (Ecotrin Tab) 325 mg QAM PO 03/04/18 09:00 04/03/18 08:59 03/06/18 07:48 325 MG Ranitidine HCl (zANTac SYRUP) 150 mg BID PO 03/03/18 21:00 04/02/18 20:59 03/06/18 20:56 150 MG Acetaminophen (Tylenol Tab) 650 mg Q4H PRN PO 03/06/18 02:45 04/05/18 02:44 Psyllium Hydrophilic Mucilloid (Metamucil Powder) 1 pkt QAM PO 03/07/18 09:00 04/06/18 08:59 Enalaprilat 1.25 mg/Dextrose 26 ml @ 100 mls/hr Q6 PRN IV 03/06/18 19:49 04/05/18 19:48 03/06/18 19:58 100 MLS/HR Sodium Chloride 1,000 ml @ 75 mls/hr [id number] IV 03/06/18 20:00 04/05/18 19:59 03/07/18 12:46 75 MLS/HR Labetalol HCl (Normodyne Tab) 200 mg BID PO 03/07/18 09:00 04/04/18 08:59 Impression 77 year old with extensive PMH and acute right frontal and temporal lobe ischemic event Plan 1. aspirin added and plans to discuss further antiplt or coag therapy after repeat CT head- patient refusing imaging 2. PT/OT speech for discharge needs- refusing 3. repeat CT head in am to r/o hemorrhagic conversion- only evolution of stroke 4. MRI -unable due to pacemaker 5. TTE- unchanged from previous TTE per cards 6. carotid doppler- or CTA head and neck- vascular malformations 7. interrogate pacemaker -done 8. then slowly decrease and optimize HTN, DL, DM LDL <70- lipid profile ordered pending 9. patient refusing medications and food 10. family meeting for direction of care -palliative consulted for input 12. repeat CT head (03/07) one week from date of stroke (02/28) then will discuss whether safe to start heparin gtt. fall risk will be poor candidate for - patient refusing CT head I have seen and discussed above patient with Dr Nelida Patel, neurology Pt CT shows large R hemisphere infarct without shift or hemorrhage. Pt has refused labs today. He is sleepy but arousable, moves UE spontaneously R>L. Imp. Cardioembolic R MCA infarct without meaningful language recovery at present. The pt is a poor AC candidate due to agitation, fall risk. I would continue antiplt tx as long as no contraindication., may stop asa after 3 months. Repeat plt is appropr if pt permits. Will sign off. ALEYDA Patel MD
[2018-03-07 15:33] VITALS: BP 171/75; PULSE 81; TEMP 36.4; O2SAT 90
[2018-03-07] MEDS ORDERED: HALOPERIDOL LACTATE 5 MG/ML 1 ML VIAL IM PRN (16:15)
[2018-03-07] MEDS: ENALAPRILAT IV 1.25 MG in DEXTROSE 5% 25ML 25 ML IV SCH (18:02)
[2018-03-07 18:56] VITALS: BP 188/90; PULSE 77; TEMP 36.5; O2SAT 92
[2018-03-07] MEDS: METOPROLOL TARTRATE 1 MG/ML VIAL IV. SCH (19:54)
[2018-03-07 21:40] VITALS: BP 181/112
[2018-03-07 23:17] VITALS: BP 177/102; PULSE 86; TEMP 36.8; O2SAT 90
[2018-03-08] VITALS (9 sets, daily range): BP systolic 138–188; BP diastolic 80–104; PULSE 70–98; TEMP 36.7–37.5; O2SAT 90–92
[2018-03-08] MEDS: ENALAPRILAT IV 1.25 MG in DEXTROSE 5% 25ML 25 ML IV SCH ×4 (00:36→17:14)
[2018-03-08] MEDS: SODIUM CHLORIDE 0.9% 1000ML 1,000 ML IV SCH ×2 (00:36→11:41)
[2018-03-08] MEDS: METOPROLOL TARTRATE 1 MG/ML VIAL IV. SCH ×4 (02:32→20:34)
[2018-03-08 06:46] LABS: HEMATOCRIT 40.7 % (42-52); HEMOGLOBIN 13.5 g/dL (14.0-18.0); MEAN CELL VOLUME 94.9 fL (80-100); MEAN CORPUSCULAR HEMOGLOBIN 31.5 pg (25-34); MEAN CORPUSCULAR HGB CONC 33.2 g/dl (32-36); MEAN PLATELET VOLUME 12.5 fL (7.4-10.4); PLATELET COUNT 83 K/uL (130-400); RED CELL DISTRIBUTION WIDTH CV 14.5 % (11.5-14.5); RED CELL DISTRIBUTION WIDTH SD 50.6 fL (36.4-46.3); WHITE BLOOD COUNT 15.75 K/uL (4.8-10.8)
[2018-03-08] MEDS: ATORVASTATIN 40 MG TAB PO SCH (07:59)
[2018-03-08] MEDS: CAPTOPRIL 25 MG TAB PO SCH ×3 (07:59→20:32)
[2018-03-08] MEDS: ASPIRIN 325 MG ECTAB PO SCH (07:59)
[2018-03-08] MEDS: RANITIDINE HCL SYRUP 150 MG/10 ML UDC PO SCH ×2 (08:00→20:33)
[2018-03-08] MEDS: LABETALOL HCL 100 MG TAB PO SCH ×2 (08:00→20:32)
[2018-03-08] MEDS: PSYLLIUM 58.6% PWD PACK S\\F PO SCH (08:00)
[2018-03-08] MEDS: AMLODIPINE BESYLATE 5 MG TAB PO SCH (08:00)
[2018-03-08] MEDS: CLOPIDOGREL BISULFATE 75 MG TAB PO SCH (08:00)
[2018-03-08] MEDS ORDERED: ACETAMINOPHEN IV 100 ML IV PRN (08:30)
[2018-03-08] MEDS: FENTANYL 12 MCG/HR TDSY TD SCH (09:23)
--- NOTE | 2018-03-08 09:27 | DIAGNOSTIC IMAGING REPORT ---
PELVIS/BILATERAL HIP 2 VIEWS CLINICAL HISTORY: r/o fracture trauma COMPARISON STUDY: No previous studies for comparison. FINDINGS: Moderate degenerative change at both hips. No well-defined fracture or dislocation. No evidence for acetabular protrusion. IMPRESSION: Mild/moderate degenerative change. No acute bony abnormality. The above report was generated using voice recognition software. It may contain grammatical, syntax or spelling errors. Electronically signed by: Adrián Ponce M.D. 03/08/2018 9:26 AM Dictated Date/Time: 03/08/2018 9:25 AM
[2018-03-08] MEDS: PANTOprazole INJ 40 MG in SYRINGE 0 ML IV SCH (10:59)
--- NOTE | 2018-03-08 10:59 | Cardiology Follow-Up ---
Subjective General Date of Service: Mar 08, 2018. Chief Complaint: CVA Pt evaluation today including: conversation w/ patient, physical exam, chart review, lab review, review of studies, review of inpatient medication list History of Present Illness Limited evaluation earlier today. Patient not aroused. Agitated earlier. Not taking PO. Hypertensive. Deemed not an anticoagulation candidate by Neurology. Telemetry: Chronic atrial fibrillation with a controlled ventricular response and occasional PVC's. Allergies Coded Allergies: Morphine (Verified Allergy, Intermediate, RASH, 12/05/16) PRURITUS Mertzon (Verified Allergy, Intermediate, Itchy rash, 12/05/16) Oxycodone (Verified Allergy, Intermediate, RASH, 12/05/16) PRURITUS Penicillins (Verified Allergy, Intermediate, HIVES, 12/05/16) Cantaloupe (Verified Allergy, Mild, ITCHY FACE AND BACK, 12/05/16) ITCHY FACE AND BACK Chocolate (Verified Allergy, Mild, NAUSEA, 12/05/16) Jackson (Verified Allergy, Mild, ITCHY FACE AND BACK, 12/05/16) Naproxen (Verified Allergy, Unknown, ., 12/05/16) Verapamil (Verified Allergy, Unknown, 12/05/16) White Fish (Verified Allergy, Unknown, CATFISH, 12/05/16) Sulfa Antibiotics (Verified Adverse Reaction, Intermediate, RASH, 12/05/16) Both legs became very swollen and red Furosemide (Unverified Adverse Reaction, Unknown, CAN'T VOID, 12/05/16) Hydrochlorothiazide (Unverified Adverse Reaction, Unknown, CAN'T VOID, 12/05) Social History Smoking Status: Former Smoker (Per family no history of smoking) Hx Tobacco Use In Past Year?: No Hx Alcohol Use - Type And Amou: No Hx Substance Use - Type And Am: No Problem List Medical Problems: (1) VIANEY (acute kidney injury) Status: Acute (2) Contusion of multiple sites Status: Acute (3) Elevated troponin Status: Acute (4) Flank pain Status: Acute (5) HTN (hypertension) Status: Acute (6) Left leg cellulitis Status: Acute (7) Left sided chest pain Status: Acute (8) Lumbar strain Status: Acute (9) Poorly-controlled hypertension Status: Acute (10) Stroke Status: Acute Review of Systems Respiratory: No cough, No sputum, No wheezing, No shortness of breath, No dyspnea at rest, No hemoptysis Cardiac: No chest pain, No orthopnea, No PND, No edema, No palpitations Physical Exam Vital Signs Last Vital Signs Documentation Date Time Temp Pulse Resp B/P (MAP) Pulse Ox O2 Delivery O2 Flow Rate FiO2 03/08/18 09:45 156/82 (106) 03/08/18 08:05 Room Air 03/08/18 08:01 99 03/08/18 07:18 36.8 32 92 Physical Exam Constitutional: Level of Distress: NAD Cardiovascular: Heart Auscultation: irregular rate rhythm Assessment and Plan Assessment and Plan Admission with a large right MCA territory cerebrovascular accident. Chronic atrial fibrillation with a controlled ventricular response Tachy-esdras syndrome with single chamber pacemaker implantation Previously refusing anticoagulation. Severe aortic valve stenosis by 2D imaging, not confirmed by Doppler interrogation Hypertension, uncontrolled Dyslipidemia RECOMMENDATIONS/PLAN: Add nitro paste for additional blood pressure control. Continue IV metoprolol for rate control Not an anticoagulation candidate as per Neurology. Dr. Guajardo is covering the weekend. Please call with any questions or concerns. Cardiology Attending Physician: Patient seen and examined at the bedside. Aphasic. Refusing medications. PE: Heart: Irregular, 1/6 systolic ejection murmur. Lungs: Clear bilateral, no rales, rhonchi, wheeze. A/P: Agree with findings and plan as outlined above in PA-C note. Continue scheduled intravenous Lopressor and enalapril. Agree with addition of Nitropaste to improve blood pressure control. Resume oral therapies as patient cooperation improved. Cardiology will sign off for the weekend. Please call with questions. Jefferson Lackey DO, [facility] Laboratory Results Last 24 Hours Test 03/08/18 05:41 White Blood Count 15.75 K/uL Red Blood Count 4.29 M/uL Hemoglobin 13.5 g/dL Hematocrit 40.7 % Mean Corpuscular Volume 94.9 fL Mean Corpuscular Hemoglobin 31.5 pg Mean Corpuscular Hemoglobin Concent 33.2 g/dl RDW Standard Deviation 50.6 fL RDW Coefficient of Variation 14.5 % Platelet Count 83 K/uL Mean Platelet Volume 12.5 fL
[2018-03-08] MEDS: NITROGLYCERIN 2% OINTMENT 30GM TUBE EXT SCH ×2 (11:17→17:15)
--- NOTE | 2018-03-08 11:23 | Progress Note ---
Internal Med Progress Note Date of Service: Mar 08, 2018. Provider Documentation: SUBJECTIVE: The patient was seen and examined in telemetry unit He is a 77-year-old obese male with history of TIA and chronic A. fib was admitted with acute stroke Clinically little bit better since admission but still remains noncommunicative verbally Denies any acute symptoms 03/04: Out of bed on a chair without any distress Complicating with worse leg okay, I am fine Has severe lack of interpretation 03/05; no new symptoms Not been communicating well and following any commands No problem with swallowing 03/06: Remains stable with the high blood pressure Denies any symptoms 03/07: Was seen and examined today, nothing new with him Letter on the nurse reported that he has been aggressive and not been taking his medications He will have CT scan of the head to decide about further anticoagulation 03/08: Reported by nurse that he is in severe pain with the agitated behavior this morning Received a dose of Haldol without any improvement During the examination-no apparent distress at rest, movement of the hips and legs caused nonspecific pain OBJECTIVE: Vital Signs-as noted below Exam: General-no apparent distress during the examination this morning Became aggressive thereafter Eyes-normal ENT-normal Neck-supple Lungs-clear to auscultate bilaterally with decreased breath sounds at bases Heart-irregular, S1-S2 with 2/6 ESM aortic area Abdomen-benign ,soft, nontender, no organomegaly Extremities-negative for any edema Movements of the hips and legs minimally painful. Doubt any fracture and/or hematoma Neuro-alert and awake Communicating using a few words like I am okay, thanks but no real meaningful communication Generally weak with left side weaker than right No facial asymmetry Lab data as noted below. ASSESSMENT & PLAN: This is a 77 year old obese male with a past medical history of TIA, chronic atrial fibrillation not on anticoagulation, tachy-esdras syndrome s/p permanent pacemaker, CAD, HTN, HLD, BPH, GERD - presents with an acute CVA Intermittent agitated behavior Hitting nurses at times Requiring pharmacologic and physical restraint Acute R Fronto-Temporal CVA - likely due to atrial fibrillation and not being on anticoagulation - as per records, he refused anticoagulation - FAMILY agreed that he should be started on anticoagulation at this time - repeat Head CT showing large evolving CVA - appreciate neuro input and recommendation - aspirin + Plavix for now -PT/OT /Speech therapy-appreciate input -Not communicating well but not in any distress - repeat Head CT in one week and decide on anticoagulation at that time -Does not have any understanding and/or meaningful communication -Has NOT been eating and drinking well -Will have CT of the head to determine further anticoagulation-pending -Worsening symptoms -Palliative care consulted Chronic Atrial Fibrillation - started on IV Lopressor q6 scheduled for rate control -Refused Anticoagulation in past - repeat Head CT in one week and decide on anticoagulation at that time related -Likely to have CT at the end of the day tomorrow and decide the issue with anticoagulation -Rate is controlled Severe Aortic Stenosis - appreciate cardiology input - for now, monitor for overload -ECHO:: * Echocardiogram study is technically limited but adequate for the referral indication. * The left ventricular wall motion is normal. * Left ventricular ejection Fraction = 55-60%. * There is mild mitral annular calcification. * There is mild mitral regurgitation. * The aortic valve is severely calcified. * Aortic valve imaging suggest severe aortic * stenosis not confirmed by Doppler examination. The Doppler exam may have underestimated the degree of stenosis. * There is no significant aortic regurgitation. * Severe aortic valve stenosis is suspected. * Compared to the report of the prior outpatient study performed 01/03/18 at [facility], there has been no significant interval change. CAD - continue Imdur, statin, aspirin, b-nelson, RAISA-I -No acute symptoms Tachy-Esdras Syndrome s/p Permanent Pacemaker HTN - will allow permissive HTN, BP range should be around 160-180 - given a few doses of IV Labetalol and IV Vasotec - medication adjustment as per cardiology -Plan to start oral labetalol 50 mg twice daily -Labetalol has been increased to 100 mg twice daily -Blood pressure is controlled following adjustment of medications DVT ppx - SCDs FULL CODE Disposition As per social service the family members want to take him home Decision will depend on how he does with physical therapy Family members will take him home on discharge We need to discuss with the family members regarding disposition. Will likely need 24-hour care Vital Signs: Date Time Temp Pulse Resp B/P (MAP) Pulse Ox O2 Delivery O2 Flow Rate FiO2 03/08/18 09:45 156/82 (106) 03/08/18 08:05 Room Air 03/08/18 08:01 99 168/101 03/08/18 07:18 36.8 83 32 167/104 (125) 92 Room Air 03/08/18 03:31 36.7 84 34 178/86 (116) 90 Room Air 03/08/18 02:32 83 168/103 03/08/18 02:31 168/103 (124) 03/08/18 00:00 Room Air 03/07/18 23:17 36.8 86 19 177/102 (127) 90 Room Air 03/07/18 21:40 181/112 (135) 03/07/18 20:00 Room Air 03/07/18 19:54 75 188/90 03/07/18 18:56 36.5 77 21 188/90 (122) 92 Room Air 03/07/18 15:33 36.4 81 18 171/75 (107) 90 Room Air Lab Results: Results Past 24 Hours Test 03/08/18 05:41 Range/Units White Blood Count 15.75 4.8-10.8 K/uL Red Blood Count 4.29 4.7-6.1 M/uL Hemoglobin 13.5 14.0-18.0 g/dL Hematocrit 40.7 42-52 % Mean Corpuscular Volume 94.9 80-100 fL Mean Corpuscular Hemoglobin 31.5 25-34 pg Mean Corpuscular Hemoglobin Concent 33.2 32-36 g/dl RDW Standard Deviation 50.6 36.4-46.3 fL RDW Coefficient of Variation 14.5 11.5-14.5 % Platelet Count 83 130-400 K/uL Mean Platelet Volume 12.5 7.4-10.4 fL
--- NOTE | 2018-03-08 11:58 | Palliative Care Consultation ---
Consultation Date of Consultation: Mar 08, 2018. Requesting Physician: Dr. Murillo Attending Physician: Dr. Murillo Reason for Consultation: Goals of care History of Present Illness This 78 year old male patient with PMH CVA, obesity, tachy-esdras syndrome s/p pacemaker, chronic afib without anticoagulation, and others listed below, presented to the hospital eight days ago with confusion and garbled speech. 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 Patient has progressively declined while in hospital. He is obese and somewhat dependent with his care at baseline, but was helping to care for his elderly prior to coming to hospital. patient is now refusing to take medications, participate in therapy, and is essentially now nonverbal. Palliative care is consulted. I met with patient in room 204. He was yelling out, in what seemed like pain, prior to me walking in room. He had hip/pelvis xray which showed no abnormality other than degenerative change. While I was in room, patient fell asleep and would not wake up for me. I was not able to obtain ROS. I called patient's son, Alfonso Kennedy. Alfonso stated that he really just wants to bring his father home and make it comfort care. We discussed in detail about hospice care and he in agreement with this. We also discussed CODE STATUS, and Alfonso wanted to keep patient full code. I do believe there is a component of misunderstanding on Alfonso 's part when it comes to code status as he states that he wants patient to come home for comfort/end of life care, but also states that he wants him to be resuscitated. I think it's a matter of more education. Case management is working on hospice referral. Past Medical/Surgical History Medical History: (1) A-fib Status: Chronic (2) Asthma Status: Chronic (3) Benign hypertension Status: Chronic (4) Benign prostatic hyperplasia Status: Chronic (5) CAD (coronary artery disease) Status: Chronic (6) Cardiac pacemaker in situ Status: Chronic (7) CHF (congestive heart failure) Permanent Comment: diastolic, chronic Status: Chronic (8) Chronic Pancreatitis Status: Chronic (9) CKD (chronic kidney disease), stage III Status: Chronic (10) Coronary Atherosclerosis Of [place] Coronary Vessel Permanent Comment: s/p ID [id number] rest echo 08/30/11- normal LVEF dobutamine stress echo 08/30/11- no stress-induced ischemia Status: Chronic (11) Degenerative joint disease (DJD) of hip Status: Chronic (12) Diverticulosis Of Colon With Hemorrhage Status: Resolved (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 (14) Dyslipidemia Status: Chronic (15) Gastroesophageal reflux disease Status: Chronic (16) H/O hemorrhoids Status: Chronic (17) Morbid Obesity Status: Chronic (18) Pre-diabetes Status: Chronic (19) Tachy-esdras syndrome Status: Chronic (20) TIA (transient ischemic attack) Status: Resolved (21) Ventral hernia Status: Chronic Surgical Problems: (1) H/O esophagogastroduodenoscopy Permanent Comment: acid reflux, gastric inflammation, hyperplastic gastric polypi Status: Resolved Social History Smoking Status: Former Smoker (Per family no history of smoking) History of Alcohol Use: No Drug Use: none Marital Status: Housing Status: lives with family (, 2 sons) Occupation Status: retired Review of Systems unable to obtain due to confusion Allergies Coded Allergies: Morphine (Verified Allergy, Intermediate, RASH, 12/05/16) PRURITUS [place] (Verified Allergy, Intermediate, Itchy rash, 12/05/16) Oxycodone (Verified Allergy, Intermediate, RASH, 12/05/16) PRURITUS Penicillins (Verified Allergy, Intermediate, HIVES, 12/05/16) Cantaloupe (Verified Allergy, Mild, ITCHY FACE AND BACK, 12/05/16) ITCHY FACE AND BACK Chocolate (Verified Allergy, Mild, NAUSEA, 12/05/16) [place] (Verified Allergy, Mild, ITCHY FACE AND BACK, 12/05/16) Naproxen (Verified Allergy, Unknown, ., 12/05/16) Verapamil (Verified Allergy, Unknown, 12/05/16) White Fish (Verified Allergy, Unknown, CATFISH, 12/05/16) Sulfa Antibiotics (Verified Adverse Reaction, Intermediate, RASH, 12/05/16) Both legs became very swollen and red Furosemide (Unverified Adverse Reaction, Unknown, CAN'T VOID, 12/05/16) Hydrochlorothiazide (Unverified Adverse Reaction, Unknown, CAN'T VOID, 12/05) Medications Current Inpatient Medications Medications (Trade) Dose Ordered Sig/Barry Route Start Time Stop Time Status Last Admin Dose Admin Miscellaneous Information (Pharmacist Discharge Med Rec Consult) 1 ea UD PRN N/A 02/28/18 11:45 03/30/18 11:44 Pantoprazole Sodium 40 mg/ Syringe 10 ml @ 5 mls/min DAILY@11 IV 03/01/18 11:00 03/31/18 10:59 03/08/18 10:59 5 MLS/MIN Clopidogrel Bisulfate (plAVix TAB) 75 mg QAM PO 03/02/18 09:00 04/01/18 08:59 03/06/18 07:48 75 MG Atorvastatin Calcium (Lipitor Tab) 40 mg QAM PO 03/03/18 09:00 04/02/18 08:59 03/06/18 07:48 40 MG Captopril (Capoten Tab) 50 mg TID PO 03/03/18 14:00 04/02/18 13:59 03/06/18 20:56 50 MG Amlodipine Besylate (Norvasc Tab) 5 mg QAM PO 03/04/18 09:00 04/03/18 08:59 03/06/18 07:48 5 MG Aspirin (Ecotrin Tab) 325 mg QAM PO 03/04/18 09:00 04/03/18 08:59 03/06/18 07:48 325 MG Ranitidine HCl (zANTac SYRUP) 150 mg BID PO 03/03/18 21:00 04/02/18 20:59 03/07/18 19:56 150 MG Acetaminophen (Tylenol Tab) 650 mg Q4H PRN PO 03/06/18 02:45 04/05/18 02:44 Psyllium Hydrophilic Mucilloid (Metamucil Powder) 1 pkt QAM PO 03/07/18 09:00 04/06/18 08:59 Sodium Chloride 1,000 ml @ 75 mls/hr [id number] IV 03/06/18 20:00 04/05/18 19:59 03/08/18 11:41 75 MLS/HR Labetalol HCl (Normodyne Tab) 200 mg BID PO 03/07/18 09:00 04/04/18 08:59 Haloperidol Lactate (Haldol Inj) 2.5 mg Q6H PRN IM 03/07/18 16:15 04/06/18 16:14 03/08/18 09:55 2.5 MG Enalaprilat 1.25 mg/Dextrose 26 ml @ 100 mls/hr Q6H IV 03/07/18 18:00 04/06/18 17:59 03/08/18 11:17 100 MLS/HR Metoprolol Tartrate (Lopressor Iv) 5 mg Q6H IV. 03/07/18 20:00 04/06/18 19:59 03/08/18 08:01 5 MG Acetaminophen 100 ml @ 400 mls/hr Q8H PRN IV 03/08/18 08:30 04/07/18 08:29 03/08/18 09:23 400 MLS/HR Fentanyl (Duragesic Patch) 12 mcg Q72H TD 03/08/18 09:00 03/22/18 08:59 03/08/18 09:23 12 MCG Miscellaneous (Fentanyl Patch Remove & Waste) 1 ea Q3D N/A 03/11/18 08:59 04/10/18 08:58 Miscellaneous Information (Check Fentanyl Patch Placement) 1 ea QS N/A 03/08/18 16:00 04/07/18 15:59 Nitroglycerin (Nitroglycerin 2% Oint) 0.5 inch Q6H EXT 03/08/18 11:00 04/07/18 10:59 03/08/18 11:17 0.5 INCH Physical Exam Date Time Temp Pulse Resp B/P (MAP) Pulse Ox O2 Delivery O2 Flow Rate FiO2 03/08/18 09:45 156/82 (106) 03/08/18 08:05 Room Air 03/08/18 08:01 99 168/101 03/08/18 07:18 36.8 83 32 167/104 (125) 92 Room Air 03/08/18 03:31 36.7 84 34 178/86 (116) 90 Room Air 03/08/18 02:32 83 168/103 03/08/18 02:31 168/103 (124) 03/08/18 00:00 Room Air 03/07/18 23:17 36.8 86 19 177/102 (127) 90 Room Air 03/07/18 21:40 181/112 (135) 03/07/18 20:00 Room Air 03/07/18 19:54 75 188/90 03/07/18 18:56 36.5 77 21 188/90 (122) 92 Room Air 03/07/18 15:33 36.4 81 18 171/75 (107) 90 Room Air General Appearance: no apparent distress, + obese ENT: + pertinent finding (oral mucosa moist) Neck: supple, no JVD Respiratory: no respiratory distress, no accessory muscle use, + decreased breath sounds Cardiovascular: + systolic murmur, + irregularly irregular, + normal peripheral pulses Abdomen: normal bowel sounds, soft Neurologic/Psychiatric: + disoriented, + pertinent finding (nonverbal, sleeping during assessment) Laboratory Results Last 24 Hours Test 03/08/18 05:41 White Blood Count 15.75 K/uL Red Blood Count 4.29 M/uL Hemoglobin 13.5 g/dL Hematocrit 40.7 % Mean Corpuscular Volume 94.9 fL Mean Corpuscular Hemoglobin 31.5 pg Mean Corpuscular Hemoglobin Concent 33.2 g/dl RDW Standard Deviation 50.6 fL RDW Coefficient of Variation 14.5 % Platelet Count 83 K/uL Mean Platelet Volume 12.5 fL Assessment & Plan Problem list: Pain Agitation CVA with residual aphasia and weakness Goals of care Palliative care recs: -Patient remains a full code as per patient's son, Alfonso. I think there is lack of understanding and continued education about code status is important. -Goal is for patient to return to his home where his two sons and live. Son , Alfonso, and a niece are full-time caregivers. Patient's son Alfonso is requesting hospice referral as he wants patient to be made comfortable and not return to hospital. -Would give patient Roxanol 5mg PO/SL Q3h PRN pain or SOB. -Lorazepam 1mg PO/SL Q4-6h PRN agitation/anxiety. -No family physically present at bedside to complete POLST form. Thank you kindly for this consult. I will follow as needed. Total time spent 70 minutes with >50% of time spent at bedside with patient and on phone with family discussing medication condition and goals of care.
[2018-03-08] MEDS: CHECK FENTANYL PATCH PLACEMENT SCH (16:02)
--- NOTE | 2018-03-08 20:05 | DIAGNOSTIC IMAGING REPORT ---
CT OF THE HEAD WITHOUT CONTRAST CLINICAL HISTORY: Follow-up right MCA territory infarct. Evaluate for hemorrhagic transformation. COMPARISON STUDY: Head CT March 01, 2018. CT DOSE: 823.94 mGycm TECHNIQUE: Helical axial images of the head were obtained without IV contrast. Automated exposure control was utilized for the study. A dose lowering technique was utilized adhering to the principles of ALARA. FINDINGS: No acute intracranial hemorrhage is present. Hypodensity within the right MCA territory is noted although decreased in conspicuity since head CT of March 01, 2018. There is no midline shift. There is no ventricular compression. There is mild sulcal effacement. Bilateral basal ganglia calcification is noted. Exam is mildly compromised by motion artifact. Visualized portions of the sinuses and mastoid air cells are clear. IMPRESSION: No acute intracranial hemorrhage. Redemonstration of a right MCA territory infarct which has decreased in conspicuity with apparent improvement in klein-white differentiation since exam of March 01, 2018. Minimal mass effect with sulcal effacement. No midline shift. Electronically signed by: Fadi Samuel M.D. 03/08/2018 8:03 PM Dictated Date/Time: 03/08/2018 7:59 PM
[2018-03-09] VITALS (8 sets, daily range): BP systolic 128–189; BP diastolic 68–113; PULSE 60–96; TEMP 36.4–36.8; O2SAT 92–96
[2018-03-09] MEDS: NITROGLYCERIN 2% OINTMENT 30GM TUBE EXT SCH ×5 (00:19→22:15)
[2018-03-09] MEDS: CHECK FENTANYL PATCH PLACEMENT SCH ×4 (00:23→23:33)
[2018-03-09] MEDS: ENALAPRILAT IV 1.25 MG in DEXTROSE 5% 25ML 25 ML IV SCH ×4 (00:23→21:25)
[2018-03-09] MEDS: METOPROLOL TARTRATE 1 MG/ML VIAL IV. SCH ×4 (03:37→20:17)
[2018-03-09] MEDS: SODIUM CHLORIDE 0.9% 1000ML 1,000 ML IV SCH ×2 (03:45→15:06)
[2018-03-09] MEDS: LABETALOL HCL 100 MG TAB PO SCH ×2 (09:00→20:01)
[2018-03-09] MEDS: RANITIDINE HCL SYRUP 150 MG/10 ML UDC PO SCH ×2 (09:00→20:01)
[2018-03-09] MEDS: ATORVASTATIN 40 MG TAB PO SCH (09:00)
[2018-03-09] MEDS: CAPTOPRIL 25 MG TAB PO SCH ×3 (09:00→20:01)
[2018-03-09] MEDS: AMLODIPINE BESYLATE 5 MG TAB PO SCH (09:00)
[2018-03-09] MEDS: ASPIRIN 325 MG ECTAB PO SCH (09:00)
[2018-03-09] MEDS: CLOPIDOGREL BISULFATE 75 MG TAB PO SCH (09:00)
[2018-03-09] MEDS: PSYLLIUM 58.6% PWD PACK S\\F PO SCH (09:00)
[2018-03-09] MEDS ORDERED: LABETALOL HCL IV 5 MG/ML 20ML IV STA (09:04)
[2018-03-09] MEDS ORDERED: LORAZEPAM 1 MG TAB SL PRN (09:45)
[2018-03-09] MEDS: MoRPHine SULFATE 5 MG/0.25 ML UDP PO PRN ×3 (10:48→22:16)
[2018-03-09] MEDS ORDERED: LORAZEPAM 2 MG/ML 1 ML VIAL IV PRN (11:00)
[2018-03-09] MEDS ORDERED: LORAZEPAM 2 MG/ML 1 ML VIAL ONE (11:22)
[2018-03-09] MEDS: PANTOprazole INJ 40 MG in SYRINGE 0 ML IV SCH (11:26)
--- NOTE | 2018-03-09 12:09 | Progress Note ---
Internal Med Progress Note Date of Service: Mar 09, 2018. Provider Documentation: SUBJECTIVE: The patient was seen and examined in telemetry unit He is a 77-year-old obese male with history of TIA and chronic A. fib was admitted with acute stroke Clinically little bit better since admission but still remains noncommunicative verbally Denies any acute symptoms 03/04: Out of bed on a chair without any distress Complicating with worse leg okay, I am fine Has severe lack of interpretation 03/05; no new symptoms Not been communicating well and following any commands No problem with swallowing 03/06: Remains stable with the high blood pressure Denies any symptoms 03/07: Was seen and examined today, nothing new with him Letter on the nurse reported that he has been aggressive and not been taking his medications He will have CT scan of the head to decide about further anticoagulation 03/08: Reported by nurse that he is in severe pain with the agitated behavior this morning Received a dose of Haldol without any improvement During the examination-no apparent distress at rest, movement of the hips and legs caused nonspecific pain 03/09: Remains stable, not communicating and no insight Noted to have occasional aggressiveness Blood pressure remains high and not been eating or drinking May have pain but do not know especially where Not been eating anything and not drinking OBJECTIVE: Vital Signs-as noted below Exam: General-aggressiveness at times Screams with pain on any movement Eyes-normal ENT-normal Neck-supple Lungs-clear to auscultate bilaterally with decreased breath sounds at bases Heart-irregular, S1-S2 with 2/6 ESM aortic area Abdomen-benign ,soft, nontender, no organomegaly Extremities-negative for any edema Movements of the hips and legs minimally painful. Doubt any fracture and/or hematoma X-rays negative for any fracture Neuro-alert and awake No insight, no meaningful response on comments and not communicating Gets agitated at times if moved for any reason Generally weak with left side weaker than right No facial asymmetry Lab data as noted below. ASSESSMENT & PLAN: This is a 77 year old obese male with a past medical history of TIA, chronic atrial fibrillation not on anticoagulation, tachy-esdras syndrome s/p permanent pacemaker, CAD, HTN, HLD, BPH, GERD - presents with an acute CVA Intermittent agitated behavior Hitting nurses at times Requiring pharmacologic and physical restraint Will give more pain medications and antianxiety medications Acute R Fronto-Temporal CVA - likely due to atrial fibrillation and not being on anticoagulation - as per records, he refused anticoagulation - FAMILY agreed that he should be started on anticoagulation at this time - repeat Head CT showing large evolving CVA - appreciate neuro input and recommendation - aspirin + Plavix for now -PT/OT /Speech therapy-appreciate input -Not communicating well but not in any distress - repeat Head CT in one week and decide on anticoagulation at that time -Does not have any understanding and/or meaningful communication -Has NOT been eating and drinking well -Will have CT of the head to determine further anticoagulation-pending -Worsening symptoms -Palliative care consulted-appreciate input -Repeat CT scan of the head, no bleeding and no mass-effect -Hospice consulted after discussion with the son -Prescribed medications as per recommendation and possible discharge on Sunday with home hospice Chronic Atrial Fibrillation - started on IV Lopressor q6 scheduled for rate control -Refused Anticoagulation in past - repeat Head CT in one week and decide on anticoagulation at that time related -Likely to have CT at the end of the day tomorrow and decide the issue with anticoagulation -Rate is controlled -We will continue current medications Severe Aortic Stenosis - appreciate cardiology input - for now, monitor for overload -ECHO:: * Echocardiogram study is technically limited but adequate for the referral indication. * The left ventricular wall motion is normal. * Left ventricular ejection Fraction = 55-60%. * There is mild mitral annular calcification. * There is mild mitral regurgitation. * The aortic valve is severely calcified. * Aortic valve imaging suggest severe aortic * stenosis not confirmed by Doppler examination. The Doppler exam may have underestimated the degree of stenosis. * There is no significant aortic regurgitation. * Severe aortic valve stenosis is suspected. * Compared to the report of the prior outpatient study performed 01/03/18 at [facility], there has been no significant interval change. CAD - continue Imdur, statin, aspirin, b-nelson, RAISA-I -No acute symptoms Tachy-Esdras Syndrome s/p Permanent Pacemaker HTN - will allow permissive HTN, BP range should be around 160-180 - given a few doses of IV Labetalol and IV Vasotec - medication adjustment as per cardiology -Plan to start oral labetalol 50 mg twice daily -Labetalol has been increased to 100 mg twice daily -Blood pressure is controlled following adjustment of medications -Requiring IV medications for blood pressure control DVT ppx - SCDs FULL CODE Disposition As per social service the family members want to take him home Decision will depend on how he does with physical therapy Family members will take him home on discharge We need to discuss with the family members regarding disposition. Will likely need 24-hour care Discussed in detail with the son about hospice care at home The son agreed that the patient should go home with hospice care Medications will be prescribed and will be given as long as patient can take. Likely discharge on Sunday Vital Signs: Date Time Temp Pulse Resp B/P (MAP) Pulse Ox O2 Delivery O2 Flow Rate FiO2 03/09/18 08:07 94 Room Air 03/09/18 08:04 36.8 96 18 185/109 (134) 94 Room Air 03/09/18 08:02 95 185/109 03/09/18 03:40 36.4 95 20 189/113 (138) 92 Room Air 03/09/18 03:37 96 189/113 03/08/18 23:59 92 Room Air 03/08/18 23:14 36.8 98 21 181/102 (128) 92 Room Air 03/08/18 20:34 85 188/85 03/08/18 20:07 36.9 85 18 188/85 (119) 92 Room Air 03/08/18 20:00 Room Air 03/08/18 15:55 87 22 150/86 (107) 92 Room Air 03/08/18 14:24 68 148/77 Lab Results: Results Past 24 Hours Test 03/08/18 12:29 03/08/18 17:51 03/09/18 00:15 03/09/18 06:05 Range/Units Bedside Glucose 120 97 116 108 70-99 mg/dl Test 03/09/18 11:46 Range/Units Bedside Glucose 127 70-99 mg/dl
[2018-03-09] MEDS ORDERED: NURSING DECISION MEDICATION ORDER SCH (15:15)
[2018-03-10] VITALS (8 sets, daily range): BP systolic 131–171; BP diastolic 75–103; PULSE 87–103; TEMP 36.6–37.2; O2SAT 89–95
[2018-03-10] MEDS: MoRPHine SULFATE 5 MG/0.25 ML UDP PO PRN ×3 (02:20→21:29)
[2018-03-10] MEDS: METOPROLOL TARTRATE 1 MG/ML VIAL IV. SCH ×4 (02:21→21:29)
[2018-03-10] MEDS: ENALAPRILAT IV 1.25 MG in DEXTROSE 5% 25ML 25 ML IV SCH ×4 (03:33→21:28)
[2018-03-10] MEDS: SODIUM CHLORIDE 0.9% 1000ML 1,000 ML IV SCH ×2 (04:09→21:32)
[2018-03-10] MEDS: NITROGLYCERIN 2% OINTMENT 30GM TUBE EXT SCH ×4 (05:05→23:33)
[2018-03-10 06:06] LABS: HEMATOCRIT 39.6 % (42-52); HEMOGLOBIN 12.9 g/dL (14.0-18.0); MEAN CELL VOLUME 94.3 fL (80-100); MEAN CORPUSCULAR HEMOGLOBIN 30.7 pg (25-34); MEAN CORPUSCULAR HGB CONC 32.6 g/dl (32-36); MEAN PLATELET VOLUME 12.9 fL (7.4-10.4); PLATELET COUNT 88 K/uL (130-400); RED CELL DISTRIBUTION WIDTH CV 14.9 % (11.5-14.5); RED CELL DISTRIBUTION WIDTH SD 51.4 fL (36.4-46.3); WHITE BLOOD COUNT 16.21 K/uL (4.8-10.8)
[2018-03-10] MEDS: CHECK FENTANYL PATCH PLACEMENT SCH ×3 (07:57→23:33)
[2018-03-10] MEDS: CAPTOPRIL 25 MG TAB PO SCH ×3 (08:26→21:00)
[2018-03-10] MEDS: LABETALOL HCL 100 MG TAB PO SCH ×2 (08:27→21:00)
[2018-03-10] MEDS: ATORVASTATIN 40 MG TAB PO SCH (08:27)
[2018-03-10] MEDS: AMLODIPINE BESYLATE 5 MG TAB PO SCH (08:27)
[2018-03-10] MEDS: RANITIDINE HCL SYRUP 150 MG/10 ML UDC PO SCH ×2 (08:27→21:00)
[2018-03-10] MEDS: ASPIRIN 325 MG ECTAB PO SCH (08:27)
[2018-03-10] MEDS: PSYLLIUM 58.6% PWD PACK S\\F PO SCH (08:27)
[2018-03-10] MEDS: CLOPIDOGREL BISULFATE 75 MG TAB PO SCH (08:27)
--- NOTE | 2018-03-10 10:03 | Progress Note ---
Internal Med Progress Note Date of Service: Mar 10, 2018. Provider Documentation: SUBJECTIVE: The patient was seen and examined in telemetry unit He is a 77-year-old obese male with history of TIA and chronic A. fib was admitted with acute stroke Clinically little bit better since admission but still remains noncommunicative verbally Denies any acute symptoms 03/04: Out of bed on a chair without any distress Complicating with worse leg okay, I am fine Has severe lack of interpretation 03/05; no new symptoms Not been communicating well and following any commands No problem with swallowing 03/06: Remains stable with the high blood pressure Denies any symptoms 03/07: Was seen and examined today, nothing new with him Letter on the nurse reported that he has been aggressive and not been taking his medications He will have CT scan of the head to decide about further anticoagulation 03/08: Reported by nurse that he is in severe pain with the agitated behavior this morning Received a dose of Haldol without any improvement During the examination-no apparent distress at rest, movement of the hips and legs caused nonspecific pain 03/09: Remains stable, not communicating and no insight Noted to have occasional aggressiveness Blood pressure remains high and not been eating or drinking May have pain but do not know especially where Not been eating anything and not drinking 03/10: Not been communicating or responding much today Hemodynamically stable with blood pressure, improving Response to painful stimuli by grimacing OBJECTIVE: Vital Signs-as noted below Exam: General-no apparent distress at rest aggressiveness at times Has not been eating or drinking as of this morning Eyes-normal ENT-normal Neck-supple Lungs-clear to auscultate bilaterally with decreased breath sounds at bases Heart-irregular, S1-S2 with 2/6 ESM aortic area Abdomen-benign ,soft, nontender, no organomegaly Extremities-trace edema bilaterally Neuro-remains semi-responsive on painful stimuli No insight, no meaningful response on comments and not communicating Gets agitated at times if moved for any reason Generally weak with left side weaker than right No facial asymmetry Lab data as noted below. ASSESSMENT & PLAN: This is a 77 year old obese male with a past medical history of TIA, chronic atrial fibrillation not on anticoagulation, tachy-esdras syndrome s/p permanent pacemaker, CAD, HTN, HLD, BPH, GERD - presents with an acute CVA Intermittent agitated behavior Hitting nurses at times Requiring pharmacologic and physical restraint Will give more pain medications and antianxiety medications Remains semi-responsive as of this morning Response by grimacing to painful stimuli Acute R Fronto-Temporal CVA - likely due to atrial fibrillation and not being on anticoagulation - as per records, he refused anticoagulation - FAMILY agreed that he should be started on anticoagulation at this time - repeat Head CT showing large evolving CVA - appreciate neuro input and recommendation - aspirin + Plavix for now -PT/OT /Speech therapy-appreciate input -Not communicating well but not in any distress - repeat Head CT in one week and decide on anticoagulation at that time -Does not have any understanding and/or meaningful communication -Has NOT been eating and drinking well -Will have CT of the head to determine further anticoagulation-pending -Worsening symptoms -Palliative care consulted-appreciate input -Repeat CT scan of the head, no bleeding and no mass-effect with slight improvement -Hospice consulted after discussion with the son -Prescribed medications as per recommendation and possible discharge on Sunday with home hospice -Appreciate hospice input and recommendation -Likely to be discharged tomorrow with home hospice -DO NOT RESUSCITATE order will be given from tomorrow as per instruction Chronic Atrial Fibrillation - started on IV Lopressor q6 scheduled for rate control -Refused Anticoagulation in past - repeat Head CT in one week and decide on anticoagulation at that time related -Likely to have CT at the end of the day tomorrow and decide the issue with anticoagulation -We will continue current medications -Rate remained controlled without any cardiac symptoms Severe Aortic Stenosis - appreciate cardiology input - for now, monitor for overload -ECHO:: * Echocardiogram study is technically limited but adequate for the referral indication. * The left ventricular wall motion is normal. * Left ventricular ejection Fraction = 55-60%. * There is mild mitral annular calcification. * There is mild mitral regurgitation. * The aortic valve is severely calcified. * Aortic valve imaging suggest severe aortic * stenosis not confirmed by Doppler examination. The Doppler exam may have underestimated the degree of stenosis. * There is no significant aortic regurgitation. * Severe aortic valve stenosis is suspected. * Compared to the report of the prior outpatient study performed 01/03/[address] [facility], there has been no significant interval change. CAD - continue Imdur, statin, aspirin, b-nelson, RAISA-I -No acute symptoms Tachy-Esdras Syndrome s/p Permanent Pacemaker HTN - will allow permissive HTN, BP range should be around 160-180 - given a few doses of IV Labetalol and IV Vasotec - medication adjustment as per cardiology -Plan to start oral labetalol 50 mg twice daily -Labetalol has been increased to 100 mg twice daily -Blood pressure is controlled following adjustment of medications -Requiring IV medications for blood pressure control -We will increase that dose of Nitropaste for better control of blood pressure DVT ppx - SCDs FULL CODE Disposition As per social service the family members want to take him home Decision will depend on how he does with physical therapy Family members will take him home on discharge We need to discuss with the family members regarding disposition. Will likely need 24-hour care Discussed in detail with the son about hospice care at home The son agreed that the patient should go home with hospice care Medications will be prescribed and will be given as long as patient can take. Likely discharge on Sunday Vital Signs: Date Time Temp Pulse Resp B/P (MAP) Pulse Ox O2 Delivery O2 Flow Rate FiO2 03/10/18 08:05 Room Air 03/10/18 07:57 86 150/87 03/10/18 06:58 36.6 100 26 171/89 (116) 92 Room Air 03/10/18 03:45 36.8 92 21 149/92 (111) 91 Room Air 03/10/18 02:21 96 160/83 03/10/18 00:11 37.2 96 20 160/83 (108) 92 03/09/18 20:17 76 128/87 03/09/18 20:00 Room Air 03/09/18 19:13 36.4 76 22 128/87 (101) 92 Room Air 03/09/18 18:02 60 27 132/91 (105) 96 Room Air 03/09/18 17:59 36.6 64 29 186/108 (134) 94 Room Air 03/09/18 15:08 71 165/101 03/09/18 12:32 81 28 138/68 (91) 95 Room Air 03/09/18 10:13 71 33 131/70 (90) Room Air Lab Results: Results Past 24 Hours Test 03/09/18 11:46 03/09/18 18:52 03/10/18 00:15 03/10/18 05:18 Range/Units Bedside Glucose 127 95 100 70-99 mg/dl White Blood Count 16.21 4.8-10.8 K/uL Red Blood Count 4.20 4.7-6.1 M/uL Hemoglobin 12.9 14.0-18.0 g/dL Hematocrit 39.6 42-52 % Mean Corpuscular Volume 94.3 80-100 fL Mean Corpuscular Hemoglobin 30.7 25-34 pg Mean Corpuscular Hemoglobin Concent 32.6 32-36 g/dl RDW Standard Deviation 51.4 36.4-46.3 fL RDW Coefficient of Variation 14.9 11.5-14.5 % Platelet Count 88 130-400 K/uL Mean Platelet Volume 12.9 7.4-10.4 fL Test 03/10/18 06:17 Range/Units Bedside Glucose 103 70-99 mg/dl
[2018-03-10] MEDS: PANTOprazole INJ 40 MG in SYRINGE 0 ML IV SCH (12:21)
[2018-03-10] MEDS ORDERED: NURSING VERBAL MED ORDER ONE (15:15)
[2018-03-11] MEDS: MoRPHine SULFATE 5 MG/0.25 ML UDP PO PRN ×2 (00:51→06:27)
[2018-03-11] MEDS: METOPROLOL TARTRATE 1 MG/ML VIAL IV. SCH ×3 (01:49→14:26)
[2018-03-11 03:21] VITALS: BP 130/82; PULSE 100
[2018-03-11] MEDS: ENALAPRILAT IV 1.25 MG in DEXTROSE 5% 25ML 25 ML IV SCH ×3 (03:21→14:27)
[2018-03-11 04:25] VITALS: BP 137/84; PULSE 74; TEMP 36.8; O2SAT 94
[2018-03-11] MEDS: NITROGLYCERIN 2% OINTMENT 30GM TUBE EXT SCH ×2 (06:16→11:28)
[2018-03-11] MEDS ORDERED: MICONAZOLE NITRATE POWDER 43 GM EXT PRN (06:45)
[2018-03-11 08:00] VITALS: O2SAT 94
[2018-03-11 08:19] VITALS: BP 161/104; PULSE 84; TEMP 36.8; O2SAT 95
[2018-03-11] MEDS: ATORVASTATIN 40 MG TAB PO SCH (08:25)
[2018-03-11] MEDS: RANITIDINE HCL SYRUP 150 MG/10 ML UDC PO SCH (08:26)
[2018-03-11] MEDS: LABETALOL HCL 100 MG TAB PO SCH (08:26)
[2018-03-11] MEDS: CLOPIDOGREL BISULFATE 75 MG TAB PO SCH (08:26)
[2018-03-11] MEDS: AMLODIPINE BESYLATE 5 MG TAB PO SCH (08:26)
[2018-03-11] MEDS: ASPIRIN 325 MG ECTAB PO SCH (08:26)
[2018-03-11] MEDS: PSYLLIUM 58.6% PWD PACK S\\F PO SCH (08:27)
[2018-03-11] MEDS: CAPTOPRIL 25 MG TAB PO SCH ×2 (08:27→14:00)
[2018-03-11] MEDS: CHECK FENTANYL PATCH PLACEMENT SCH ×2 (08:30→16:05)
[2018-03-11] MEDS: FENTANYL 12 MCG/HR TDSY TD SCH (08:32)
[2018-03-11] MEDS ORDERED: FENTANYL PATCH REMOVE & WASTE SCH (08:59)
[2018-03-11] MEDS: PANTOprazole INJ 40 MG in SYRINGE 0 ML IV SCH (11:29)
[2018-03-11 12:00] VITALS: BP 168/95; PULSE 96; TEMP 37.1; O2SAT 92
--- NOTE | 2018-03-11 13:50 | Progress Note ---
Medicine Progress Note Date & Time of Visit: Mar 11, 2018 at 13:37. Subjective Pt was seen and examined Lying in bed with no distress Non verbal Has not been eating Will go home today with hospice Objective Last 8 Hrs Date Time Temp Pulse Resp B/P (MAP) Pulse Ox O2 Delivery O2 Flow Rate FiO2 03/11/18 12:00 37.1 96 20 168/95 (119) 92 Room Air 03/11/18 08:25 84 161/104 03/11/18 08:19 36.8 84 25 161/104 (123) 95 Nasal Cannula 3.0 03/11/18 08:00 94 Nasal Cannula 3.0 Physical Exam: General- No acute distress Head- atraumatic Eyes- PERRL, EOMI ENT- oropharynx clear Neck- supple, no JVD Lungs- clear to auscultation Heart- Irregular Abdomen- normal bowel sounds Neuro- No verbal Skin- warm & dry Laboratory Results: Last 24 Hours Test 03/10/18 18:45 03/11/18 00:00 03/11/18 06:42 Bedside Glucose 110 mg/dl 101 mg/dl 104 mg/dl Assessment & Plan Right Frontal-Temporal infarct Likely due to atrial fibrillation and not being on anticoagulation CT head showed redemonstration of a right MCA territory infarct which has decreased in conspicuity with apparent improvement. No intracranial hemorrhage. Neuro on board recommended aspirin and plavix Aspirin can be discharged after 3 months No a good candidate for anticoagulant due to hx confusion, fall risks, agitation Will be discharge home on hospice Speech on board recommended moist mechanical soft diet, THIN liquid and aspiration precautions Chronic Atrial Fibrillation Rate controlled with IV Lopressor and labetalol Refused Anticoagulation in past No a good candidate for anticoagulant due to hx confusion, fall risks, agitation Not an anticoagulation candidate as per Neurology. ECHO * Echocardiogram study is technically limited but adequate for the referral indication. * The left ventricular wall motion is normal. * Left ventricular ejection Fraction = 55-60%. * There is mild mitral annular calcification. * There is mild mitral regurgitation. * The aortic valve is severely calcified. * Aortic valve imaging suggest severe aortic * stenosis not confirmed by Doppler examination. The Doppler exam may have underestimated the degree of stenosis. * There is no significant aortic regurgitation. * Severe aortic valve stenosis is suspected. * Compared to the report of the prior outpatient study performed 01/03/18 at [facility], there has been no significant interval change. DVT px on SCD Disposition Discharge home on hospice Current Inpatient Medications: Current Inpatient Medications Medications (Trade) Dose Ordered Sig/Barry Route Start Time Stop Time Status Last Admin Dose Admin Miscellaneous Information (Pharmacist Discharge Med Rec Consult) 1 ea UD PRN N/A 02/28/18 11:45 03/30/18 11:44 Pantoprazole Sodium 40 mg/ Syringe 10 ml @ 5 mls/min DAILY@11 IV 03/01/18 11:00 03/31/18 10:59 03/11/18 11:29 5 MLS/MIN Clopidogrel Bisulfate (plAVix TAB) 75 mg QAM PO 03/02/18 09:00 04/01/18 08:59 03/11/18 08:26 75 MG Atorvastatin Calcium (Lipitor Tab) 40 mg QAM PO 03/03/18 09:00 04/02/18 08:59 03/11/18 08:25 40 MG Captopril (Capoten Tab) 50 mg TID PO 03/03/18 14:00 04/02/18 13:59 03/11/18 08:27 50 MG Amlodipine Besylate (Norvasc Tab) 5 mg QAM PO 03/04/18 09:00 04/03/18 08:59 03/11/18 08:26 5 MG Aspirin (Ecotrin Tab) 325 mg QAM PO 03/04/18 09:00 04/03/18 08:59 03/11/18 08:26 325 MG Ranitidine HCl (zANTac SYRUP) 150 mg BID PO 03/03/18 21:00 04/02/18 20:59 03/11/18 08:26 150 MG Acetaminophen (Tylenol Tab) 650 mg Q4H PRN PO 03/06/18 02:45 04/05/18 02:44 Psyllium Hydrophilic Mucilloid (Metamucil Powder) 1 pkt QAM PO 03/07/18 09:00 04/06/18 08:59 03/11/18 08:27 1 PKT Sodium Chloride 1,000 ml @ 50 mls/hr Q20H IV 03/06/18 20:00 04/05/18 19:59 03/10/18 21:32 50 MLS/HR Labetalol HCl (Normodyne Tab) 200 mg BID PO 03/07/18 09:00 04/04/18 08:59 03/11/18 08:26 200 MG Haloperidol Lactate (Haldol Inj) 2.5 mg Q6H PRN IM 03/07/18 16:15 04/06/18 16:14 03/08/18 09:55 2.5 MG Enalaprilat 1.25 mg/Dextrose 26 ml @ 100 mls/hr Q6H IV 03/07/18 18:00 04/06/18 17:59 03/11/18 08:31 100 MLS/HR Metoprolol Tartrate (Lopressor Iv) 5 mg Q6H IV. 03/07/18 20:00 04/06/18 19:59 03/11/18 08:25 5 MG Acetaminophen 100 ml @ 400 mls/hr Q8H PRN IV 03/08/18 08:30 04/07/18 08:29 03/08/18 09:23 400 MLS/HR Fentanyl (Duragesic Patch) 12 mcg Q72H TD 03/08/18 09:00 03/22/18 08:59 03/11/18 08:32 12 MCG Miscellaneous (Fentanyl Patch Remove & Waste) 1 ea Q3D N/A 03/11/18 08:59 04/10/18 08:58 03/11/18 08:30 1 EA Miscellaneous Information (Check Fentanyl Patch Placement) 1 ea QS N/A 03/08/18 16:00 04/07/18 15:59 03/11/18 08:30 1 EA Nitroglycerin (Nitroglycerin 2% Oint) 0.5 inch Q6H EXT 03/08/18 11:00 04/07/18 10:59 03/11/18 11:28 0.5 INCH Morphine Sulfate (Roxanol Oral Soln) 5 mg Q3H PRN PO 03/09/18 09:45 03/23/18 09:44 03/11/18 06:27 5 MG Lorazepam (Ativan Tab) 1 mg Q4H PRN SL 03/09/18 09:45 04/08/18 09:44 Lorazepam (Ativan Inj) 0.5 mg Q4H PRN IV 03/09/18 11:00 04/08/18 10:59 03/10/18 01:12 0.5 MG Miconazole Nitrate (Desenex Powder) 1 appln PRN PRN EXT 03/11/18 06:45 04/10/18 06:44 03/11/18 07:30 1 APPLN
[2018-03-11] MEDS ORDERED: PLV75 PO (14:26)
[2018-03-11] MEDS ORDERED: HALO5TAB PO (14:26)
[2018-03-11] MEDS ORDERED: DOCU100C31 PO (14:26)
[2018-03-11] MEDS ORDERED: ASPEC325 PO (14:26)
[2018-03-11] MEDS ORDERED: POLY335019 PO (14:26)
[2018-03-11] MEDS: SODIUM CHLORIDE 0.9% 1000ML 1,000 ML IV SCH (14:27)
[2018-03-11] MEDS ORDERED: ATV1 SL (14:33)
[2018-03-11] MEDS ORDERED: RXNS10 PO (14:33)
--- NOTE | 2018-03-11 14:37 | Palliative Care Progress Note ---
Palliative Care Progress Note Date of Service Mar 11, 2018. Subjective Pt evaluation today including: conversation w/ patient, physical exam, chart review Patient remained sleeping during my exam despite me trying to wake him. He was in no distress, no obvious signs/symptoms of pain or discomfort. He did move his extremities and stir in bed while I was trying to speak with him, he never opened his eyes. Spoke with nursing and case management. See plan below. Review of Systems unable to obtain due to patient condition Objective Vital Signs Date Time Temp Pulse Resp B/P (MAP) Pulse Ox O2 Delivery O2 Flow Rate FiO2 03/11/18 08:25 84 161/104 03/11/18 08:19 36.8 84 25 161/104 (123) 95 Nasal Cannula 3.0 03/11/18 08:00 94 Nasal Cannula 3.0 03/11/18 04:25 36.8 74 22 137/84 (101) 94 Nasal Cannula 3.0 03/11/18 03:21 100 130/82 (98) 03/11/18 01:49 91 142/98 03/10/18 23:04 37.1 90 24 146/81 (102) 95 Room Air 03/10/18 21:29 103 149/75 03/10/18 20:00 Nasal Cannula 3.0 03/10/18 19:11 37.0 103 27 149/75 (99) 93 Nasal Cannula 2.0 03/10/18 15:20 36.9 94 20 131/82 (98) 93 Nasal Cannula 3.0 03/10/18 14:46 92 157/103 03/10/18 14:41 87 31 157/103 (121) 89 Nasal Cannula 2.0 03/10/18 11:39 37.1 93 28 155/76 (102) 93 Room Air Physical Exam General Appearance: no apparent distress, + obese ENT: + pertinent finding (oral mucosa moist) Neck: supple, no JVD Respiratory/Chest: no respiratory distress, no accessory muscle use, + decreased breath sounds, + pertinent finding (room air) Cardiovascular: + irregularly irregular, + normal peripheral pulses, + pertinent finding (+2 pitting edmema to BLE) Abdomen: normal bowel sounds, soft Neurologic/Psychiatric: + pertinent finding (sleeping during my visit) Laboratory Results Last 24 Hours Test 03/10/18 12:58 03/10/18 18:45 03/11/18 00:00 03/11/18 06:42 Bedside Glucose 104 mg/dl 110 mg/dl 101 mg/dl 104 mg/dl Assessment and Plan Problem list: Altered mental status Agitation CVA with residual aphasia and weakness Goals of care Palliative care recs: -Last I spoke with patient's son, Alfonso, he wanted him to remain full code. Family needs further education on this subject and support in making this, as well as any, medical decision. -Plan is for patient to return home with hospice. His son, Alfonso, is primary caregiver. There are some concerns about living conditions in the home (i.e. dirt floors, access to clean water, etc.), but hospice agency is aware and will work with patient and family. -No family present to do POLST form. -Patient will be sent with scripts for Roxanol and Haldol. -Please contact me with any further palliative care needs. Total time spent 25 minutes with >50% of time spent at bedside with patient as well as case management discussing plan and coordinating care. Palliative Performance Scale: 20 % Discharge planning: home with Hospice
--- NOTE | 2018-03-11 14:42 | Discharge Instructions ---
Discharge Instructions Date of Service Mar 11, 2018. Admission Reason for Admission: CVA Discharge Discharge Diagnosis / Problem: Right frontal-temporal infarct Discharge Goals Goal(s): Decrease discomfort, Improve function, Improve disease control Activity Recommendations Activity Limitations: resume your previous activity (as tolerated) . Instructions / Follow-Up Instructions / Follow-Up Discharge home on hospice Follow up with the hospice team care Fall precaution Continue aspirin and Plavix for 3 months as long as patient is able to take them and no complication of bleeding. After 3 months aspirin can be discontinued and continue the plavix. Moist mechanical soft diet, thin liquid and aspiration precautions Current Hospital Diet Patient's current hospital diet: AHA Diet (Heart Healthy) Discharge Diet Recommended Diet: AHA Diet (Heart Healthy) Diet Texture: Mechanical Soft (ground) Pending Studies Studies pending at discharge: no Laboratory Results Hemoglobin A1c Test 03/01/18 10:08 Range/Units Estimated Average Glucose 123 mg/dl Hemoglobin A1c 5.9 H 4.5-5.6 % Lipid Panel Test 02/28/18 09:37 Range/Units Triglycerides Level 72 0-150 mg/dl Cholesterol Level 141 0-200 mg/dl HDL Cholesterol 62 mg/dl Cholesterol/HDL Ratio 2.3 LDL Cholesterol, Calculated 65 mg/dl Medical Emergencies . Who to Call and When: Medical Emergencies: If at any time you feel your situation is an emergency, please call 911 immediately. . Non-Emergent Contact Non-Emergency issues call your: Primary Care Provider Call Non-Emergent contact if: you have any medication questions . . "Provider Documentation" section prepared by Jairo Yepez. .
[2018-03-11 15:40] VITALS: BP 168/95; PULSE 96; TEMP 37.1; O2SAT 92
--- NOTE | 2018-03-12 20:06 | Discharge Summary ---
Discharge Summary Date of Service Mar 12, 2018. Discharge Summary Admission Date: Feb 28, 2018 at 11:42 Discharge Date: Mar 11, 2018 Discharge Disposition: Home with services (hospice) Principal Diagnosis: Right Frontal-Temporal infarct Secondary Diagnoses/Problems: Chronic Atrial Fibrillation HTN Tachy-Frandy syndrome Cardiac pacemaker CHF BPH GERD Procedures: HEAD WITHOUT CONTRAST (CT) CLINICAL HISTORY: 77 years-old Male with Evaluate Fever/Sepsis. Acute fever with sepsis and headache TECHNIQUE: Multiple axial CT images of the head were obtained without contrast. A dose lowering technique was utilized adhering to the principles of ALARA. CT DOSE: 1038.11 mGy.cm COMPARISON: CT head 12/05/2016 FINDINGS: Motion degraded exam without acute intracranial hemorrhage, midline shift, intracranial mass, hydrocephalus, or abnormal extra-axial collection. Age-related involutional changes. Senescent calcifications of the lentiform nuclei. Cerebral vascular calcifications also noted. Ill-defined low-attenuation about the periventricular white matter suggests chronic microvascular ischemic changes. There is a focal area of ill-defined decreased attenuation with blurring of the klein-white interface and mild sulcal effacement involving the right frontal lobe measuring 3.0 x 2.6 cm, image 23 series 2 with additional questioned ill-defined area of decreased density involving the right temporal lobe. The calvarium is intact. The paranasal sinuses, mastoid air cells, and middle ear cavities are clear. IMPRESSION: 1. Motion degraded exam. 2. Ill-defined area of decreased attenuation with blurring of the klein-white interface involves the right frontal and temporal lobes suggests acute infarction with cytotoxic edema and mild sulcal effacement. No discrete hemorrhage, or midline shift. 3. Atrophy with chronic microvascular ischemic changes. The above report was generated using voice recognition software. It may contain grammatical, syntax or spelling errors. Electronically signed by: Bryan Jarvis M.D. 02/28/2018 9:22 AM Dictated Date/Time: 02/28/2018 9:18 AM ABDOMEN AND PELVIS CT WITHOUT CONTRAST CT DOSE: 2109.01 mGy.cm HISTORY: Evaluate Fever/Sepsis INCLUDE PELVIS PER DR MERINO TECHNIQUE: Multiaxial CT images of the abdomen and pelvis were performed without contrast. A dose lowering technique was utilized adhering to the principles of ALARA. COMPARISON STUDY: Abdomen and pelvis CT 10/27/2015. FINDINGS: Right basilar linear densities favor scarring or atelectasis. This remains unchanged. No pneumoperitoneum. No pneumatosis. No suspicious lytic or blastic osseous lesions. A pacemaker wire is noted. The heart is mildly enlarged. Moderate-sized fat-containing umbilical hernia, unchanged. Multiple small gallstones. No gallbladder wall thickening. Duplicated right renal collecting system. Punctate stone within the lower pole the right kidney. Stable small peripelvic cyst within the right kidney which measures 14 mm. There is a left retroaortic renal vein. No ureteral stones. No hydronephrosis. The unenhanced spleen, pancreas, and adrenal glands are unremarkable. Stable 1.5 cm hypodense lesion within the left hepatic lobe. This is incompletely characterized on this noncontrast study but favors a cyst. No retroperitoneal lymphadenopathy. Normal bladder. Suboptimal evaluation for bowel pathology due to the lack of intravenous and oral contrast. However, there is no definite bowel wall thickening or obstruction. Normal appendix. There is a partially visualized 13 cm subcutaneous fluid collection within the lateral aspect of the right hip. IMPRESSION: 1. No bowel wall thickening or obstruction. 2. Right-sided nephrolithiasis. No ureteral stones. No hydronephrosis. 3. Cholelithiasis. 4. Normal appendix. 5. No change in the moderate size fat-containing umbilical hernia. 6. Subcutaneous fluid collection along the lateral aspect of the right hip. This is only partially visualized but was likely present on the 2016 examination. Therefore, this is of doubtful clinical significance and favors a seroma or lymphocele. Electronically signed by: Facundo White M.D. 02/28/2018 9:46 AM Dictated Date/Time: 02/28/2018 9:[address] OF THE HEAD WITHOUT CONTRAST CLINICAL HISTORY: Follow-up right MCA territory infarct. Evaluate for hemorrhagic transformation. COMPARISON STUDY: Head CT March 01, 2018. CT DOSE: 823.94 mGycm TECHNIQUE: Helical axial images of the head were obtained without IV contrast. Automated exposure control was utilized for the study. A dose lowering technique was utilized adhering to the principles of ALARA. FINDINGS: No acute intracranial hemorrhage is present. Hypodensity within the right MCA territory is noted although decreased in conspicuity since head CT of March 01, 2018. There is no midline shift. There is no ventricular compression. There is mild sulcal effacement. Bilateral basal ganglia calcification is noted. Exam is mildly compromised by motion artifact. Visualized portions of the sinuses and mastoid air cells are clear. IMPRESSION: No acute intracranial hemorrhage. Redemonstration of a right MCA territory infarct which has decreased in conspicuity with apparent improvement in klein-white differentiation since exam of March 01, 2018. Minimal mass effect with sulcal effacement. No midline shift. Electronically signed by: Fadi Samuel M.D. 03/08/2018 8:03 PM Dictated Date/Time: 03/08/2018 7:59 PM HEAD WITHOUT CONTRAST (CT) CLINICAL HISTORY: 77 years-old Male with F/U CVA r/o hemorrhagic conversion. Follow-up study in a patient with acute infarct. Concern for possible acute intracranial hemorrhage TECHNIQUE: Multiple axial CT images of the head were obtained without contrast. A dose lowering technique was utilized adhering to the principles of ALARA. CT DOSE: 1228.53 mGy.cm COMPARISON: CT head 02/28/2018. FINDINGS: No acute intracranial hemorrhage, midline shift, abnormal extra-axial collections, hydrocephalus or intracranial mass. Study is motion degraded. Cerebral vascular calcifications. Age-related involutional changes with chronic microvascular ischemic changes. Senescent calcifications about the lentiform nuclei. There is evolution of the subacute infarct involving the right MCA territory which predominantly involves the right temporal lobe measuring up to 9.5 x 3.9 cm in AP and transverse dimension and lesser extent involves the right frontal lobe and also possibly the right parietal lobe. Sulcal effacement within these distributions from progressively worsened cytotoxic edema. No herniation. No calvarial fracture. The mastoid air cells and middle ear cavities are clear. No significant paranasal sinus disease. The soft tissues and orbits are unremarkable. Prior bilateral cataract repair. IMPRESSION: 1. Evolution of the large subacute right MCA territory infarction which predominantly involves the right temporal lobe measuring up to 9.5 cm in greatest dimension. There is sulcal effacement from the cytotoxic edema without midline shift or intracranial hemorrhage. 2. Motion degraded exam. The above report was generated using voice recognition software. It may contain grammatical, syntax or spelling errors. Electronically signed by: Bryan Jarvis M.D. 03/01/2018 6:46 AM Dictated Date/Time: 03/01/2018 6:41 AM BILATERAL CAROTID DOPPLER STUDY HISTORY: Stroke symptoms. COMPARISON: None. TECHNIQUE: Real-time, grayscale, and color Doppler sonography of the carotid arteries was performed. Imaging reviewed in the transverse and longitudinal planes. All measurements were calculated based on NASCET criteria. FINDINGS: Antegrade flow is seen in the bilateral vertebral arteries. Mild scattered calcified plaque within the bilateral carotid arteries. The peak systolic velocity within the right ICA is 54 cm/s. The right systolic ratio is 1.2. The peak systolic velocity within the left ICA is 69 cm/s. The left systolic ratio is 1.0. IMPRESSION: No hemodynamically significant stenosis seen within the carotid arteries. Electronically signed by: Facundo White M.D. 03/01/2018 7:11 AM Dictated Date/Time: 03/01/2018 7:10 AM PELVIS/BILATERAL HIP 2 VIEWS CLINICAL HISTORY: r/o fracture trauma COMPARISON STUDY: No previous studies for comparison. FINDINGS: Moderate degenerative change at both hips. No well-defined fracture or dislocation. No evidence for acetabular protrusion. IMPRESSION: Mild/moderate degenerative change. No acute bony abnormality. The above report was generated using voice recognition software. It may contain grammatical, syntax or spelling errors. Electronically signed by: Adrián Ponce M.D. 03/08/2018 9:26 AM Dictated Date/Time: 03/08/2018 9:25 AM [~ rep ct add3]] CHEST ONE VIEW PORTABLE CLINICAL HISTORY: Evaluate Fever/Sepsis COMPARISON STUDY: 12/05/2016 FINDINGS: Findings of developing congestive failure versus pulmonary edema. Increased prominence of the central pulmonary vasculature. Diaphragms smooth. Permanent unipolar cardiac pacemaker. IMPRESSION: Congestive heart failure The above report was generated using voice recognition software. It may contain grammatical, syntax or spelling errors. Electronically signed by: Adrián Pocne M.D. 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 * Attempted microcavitation study, Pedoff, and Definity. * -- Conclusions -- * Echocardiogram study is technically limited but adequate for the referral indication. * The left ventricular wall motion is normal. * Left ventricular ejection Fraction = 55-60%. * There is mild mitral annular calcification. * There is mild mitral regurgitation. * The aortic valve is severely calcified. * Aortic valve imaging suggest severe aortic * stenosis not confirmed by Doppler examination. The Doppler exam may have underestimated the degree of stenosis. * There is no significant aortic regurgitation. * Severe aortic valve stenosis is suspected. * Compared to the report of the prior outpatient study performed 01/03/18 at [facility], there has been no significant interval change. Procedure Details * A complete two-dimensional transthoracic echocardiogram was performed (2D, M- mode, Doppler and color flow Doppler). * The study was technically difficult. * The study was technically difficult, but visualization was adequate with the administration of Definity ultrasound contrast. * There were technical limitations due to patient'sinability to cooperate * A saline contrast injection was performed to assess for cardiac shunting. * The injection was performed through an intravenous line in the left arm. * The attending nurse who injected the saline contrast was Lili Joe RN. * A total of 10 cc of agitated saline was given. * A contrast injection of Definity was performed to improve assessment of LV function. * Contrast was injected into an intravenous site in the left arm. * One vial of Definity ultrasound contrast was diluted in normal saline to a total volume of 10 ml. A total of '1.5' ml of solution was administered during imaging. * Lot # [id number] of Definity utilized for procedure. * Expiration date ul. * The attending nurse who injected the contrast agent was Lili Joe RN. Left Ventricle * The left ventricle is normal in size. * There is no left ventricular mural thrombus. * There is mild concentric left ventricular hypertrophy. * Ejection Fraction = 55-60%. * Left ventricular systolic function is normal. * The left ventricular wall motion is normal. Right Ventricle * The right ventricle is normal in size and function. Atria * The left atrium is mildly dilated. * Left atrial appendage is not assessed. * Right atrial size is normal. * There is no evidence of an atrial septal defect. Assessment for PFO was attempted with administration of agitated saline contrast, but is technically insufficient due to low resolution, and poor patient compliance. Mitral Valve * There is mild mitral annular calcification. * There is no mitral valve stenosis. * There is mild mitral regurgitation. Tricuspid Valve * The tricuspid valve is normal. * There is no tricuspid stenosis. * Significant tricuspid regurgitation is absent. Aortic Valve * The aortic valve is trileaflet. * The aortic valve is severely calcified. * Aortic valve imaging suggest severe aortic stenosis not confirmed by Doppler examination. The Doppler exam may have underestimated the degree of stenosis. * There is no significant aortic regurgitation. Pulmonic Valve * The pulmonary valve is not well seen, but the Doppler examination is normal without significant regurgitation or stenosis. Great Vessels * The aortic root and proximal ascending aorta are normal sized. Pericardium/Pleural * There is no pericardial effusion. Right Ventricle * Pacemaker lead is noted in the right ventricle. Great Vessels * Normal inferior vena cava diameter and respiratory variation suggests normal central venous pressure. Left Ventricular Diastolic Function * Left ventricular diastolic function is likely abnormal given left ventricular hypertrophy and left atrial enlargement, but is not graded due to the presence of underlying atrial fibrillation. Consultations: Cardio Neuro Medication Reconciliation New Medications: Aspirin (Aspirin) 325 Mg Ectab 325 MG PO QAM for 30 Days Clopidogrel Bisulfate (Clopidogrel) 75 Mg Tab 75 MG PO QAM for 30 Days, #30 TAB Lorazepam (Lorazepam) 1 Mg Tab 1 MG SL Q6H PRN for Anxiety, #30 TAB Morphine Sulfate (Morphine Sulfate) 10 Mg/0.5 Ml Soln 5 MG PO Q3H PRN for Pain for 5 Days Changed Medications: Docusate Sodium (Docusate Sodium) 100 Mg Cap 100 MG PO BID PRN for Constipation, #30 CAP (Changed from: 14; Removed Days) Polyethylene Glycol 3350 (Miralax) 1 Pow Pow 17 GM PO DAILY PRN for Constipation, #255 GM (Medication details modified) IF NO BM IN 2 DAYS, TAKE BID. Continued Medications: Acetaminophen (Tylenol) 500 Mg Tab 1000 MG PO PRN UD, TAB Amlodipine Besylate (Amlodipine Besylate) 5 Mg Tab 10 MG PO DAILY@0900 for 30 Days, #30 TAB Atorvastatin (Lipitor) 40 Mg Tab 40 MG PO QPM, TAB Captopril (Capoten) 50 Mg Tab 50 MG PO TID, TAB Finasteride (Proscar) 5 Mg Tab 5 MG PO DAILY, TAB Hydralazine HCl (Hydralazine HCl) 50 Mg Tab 50 MG PO TID Isosorbide Mononitrate Ext Rel (Imdur Ext Rel) 30 Mg Tabcr 60 MG PO QAM, TAB Labetalol Hcl (Normodyne) 200 Mg Tab 200 MG PO BID, TAB Nitroglycerin (Nitrostat) 0.4 Mg Tab 0.4 MG UT PRN, BTL Tamsulosin Hcl (Flomax) 0.4 Mg Cap 0.4 MG PO DAILY, CAP Discontinued Medications: Aspirin (Aspirin Ec) 81 Mg Tab 81 MG PO DAILY Pantoprazole (Protonix) 40 Mg Tab 40 MG PO DAILY, #30 TAB Ranitidine (Zantac) 150 Mg Tab 150 MG PO BID, TAB Admission Information HPI (per Admitting provider): This is a 77-year-old white male who has a significant past medical history of TIA, chronic atrial fibrillation not on anticoagulation secondary to refusal per cardiology notes, tachy/frandy syndrome status post ppm 01/2015, CAD, hypertension, hyperlipidemia, morbid obesity, BPH, GERD who presented to [facility] with altered mental status for unknown duration. Son and grandson at bedside provides history. Unable to obtain history from patient secondary to current condition. Son was not home at time of the event; however, was told between 7:30 AM-9 AM patient developed, "garbled," speech. Due to change in condition EMS was called and patient was brought to ED. ROS unobtainable from patient. Per family at bedside unaware history of A. fib or oral anticoagulation history, however they do think he has had a history of TIA/ CVA in past. 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 TPA was not given secondary to timing of events unknown. In ED and initial workup revealed ill-defined area of decreased attenuation with blurring of the klein-white interface involves the right frontal and temporal lobes suggests acute infarction without midline shift or hemorrhage, chest x-ray positive for CHF, H/H 12.1 and 36.1, WBC 5.29, platelet count 162, sodium 140, potassium 3.8 , BUN 19, creatinine 1.1, glucose 126, UA negative, troponin negative LA within normal limits, ECG atrial fibrillation, ventricular rate 67 bpm with frequent PVCs. Patient's [facility] chart reviewed in [facility] which those most recent blood work on 02/14/18 A1c 5.7, LDL 74, echo on 01/03/18 EF 55-59%, mild LVH, AV calcified severe stenosis. He is being admitted for further neurologic work up of new CVA. Physical Exam (per Admitting): General Appearance: WD/WN (Male, agitated, doesn't follow commands, grimaces but non verbal), + mild distress, + obese Head: normocephalic, atraumatic Eyes: PERRL, sclerae normal ENT: + pertinent finding (dry mucosal membranes) Neck: supple, no adenopathy, no JVD, no carotid bruits Respiratory/Chest: chest non-tender (exam limited due to patient agigtation/ not cooperative), lungs clear, normal breath sounds, no respiratory distress, no accessory muscle use Cardiovascular: + irregularly irregular, + abnormal peripheral pulses ( diminshed pedal pulses), + pertinent finding (b/l +1 pedal and pretibial edema, with mild venous stasis changes) Abdomen/GI: normal bowel sounds, soft, no pulsatile mass, + distended ( secondary to obesity), + pertinent finding (patient has mild grimacing with palpation) Extremities/Musculoskelatal: + pedal edema, + swelling Neurologic/Psych: alert (opens eyes to verbal stimulation), + aphasia ( patient with minimal verbalization, not cooperative, does move both bilateral upper/lower extremities;however cran nerves 2-12/neuro exam unable to assess accurately), + disoriented Skin: normal color, warm/dry Hospital Course (1) CVA (cerebral vascular accident) (2) Hypertension (3) A-fib (4) Tachy-frandy syndrome (5) Cardiac pacemaker in situ (6) CAD (coronary artery disease) (7) Pre-diabetes (8) CHF (congestive heart failure) (9) Benign prostatic hyperplasia (10) Gastroesophageal reflux disease (11) Morbid Obesity Right Frontal-Temporal infarct Likely due to atrial fibrillation and not being on anticoagulation CT head showed redemonstration of a right MCA territory infarct which has decreased in conspicuity with apparent improvement. No intracranial hemorrhage. Neuro on board recommended aspirin and plavix Aspirin can be discharged after 3 months No a good candidate for anticoagulant due to hx confusion, fall risks, agitation Will be discharge home on hospice Speech on board recommended moist mechanical soft diet, THIN liquid and aspiration precautions Chronic Atrial Fibrillation Rate controlled with IV Lopressor and labetalol Refused Anticoagulation in past No a good candidate for anticoagulant due to hx confusion, fall risks, agitation Not an anticoagulation candidate as per Neurology. ECHO * Echocardiogram study is technically limited but adequate for the referral indication. * The left ventricular wall motion is normal. * Left ventricular ejection Fraction = 55-60%. * There is mild mitral annular calcification. * There is mild mitral regurgitation. * The aortic valve is severely calcified. * Aortic valve imaging suggest severe aortic * stenosis not confirmed by Doppler examination. The Doppler exam may have underestimated the degree of stenosis. * There is no significant aortic regurgitation. * Severe aortic valve stenosis is suspected. * Compared to the report of the prior outpatient study performed 01/03/18 at [facility], there has been no significant interval change. DVT px on SCD Disposition Discharge home on hospice Total time spent on discharge = 35 minutes This includes examination of the patient, discharge planning, medication reconciliation, and communication with other providers. Discharge Instructions Discharge Instructions Date of Service Mar 11, 2018. Admission Reason for Admission: CVA Discharge Discharge Diagnosis / Problem: Right frontal-temporal infarct Discharge Goals Goal(s): Decrease discomfort, Improve function, Improve disease control Activity Recommendations Activity Limitations: resume your previous activity (as tolerated) . Instructions / Follow-Up Instructions / Follow-Up Discharge home on hospice Follow up with the hospice team care Fall precaution Continue aspirin and Plavix for 3 months as long as patient is able to take them and no complication of bleeding. After 3 months aspirin can be discontinued and continue the plavix. Moist mechanical soft diet, thin liquid and aspiration precautions Current Hospital Diet Patient's current hospital diet: AHA Diet (Heart Healthy) Discharge Diet Recommended Diet: AHA Diet (Heart Healthy) Diet Texture: Mechanical Soft (ground) Pending Studies Studies pending at discharge: no Laboratory Results Hemoglobin A1c Test 03/01/18 10:08 Range/Units Estimated Average Glucose 123 mg/dl Hemoglobin A1c 5.9 H 4.5-5.6 % Lipid Panel Test 02/28/18 09:37 Range/Units Triglycerides Level 72 0-150 mg/dl Cholesterol Level 141 0-200 mg/dl HDL Cholesterol 62 mg/dl Cholesterol/HDL Ratio 2.3 LDL Cholesterol, Calculated 65 mg/dl Medical Emergencies . Who to Call and When: Medical Emergencies: If at any time you feel your situation is an emergency, please call 911 immediately. . Non-Emergent Contact Non-Emergency issues call your: Primary Care Provider Call Non-Emergent contact if: you have any medication questions . . "Provider Documentation" section prepared by Jairo Yepez. .
== END 2018-03-11 16:45 | disposition hospice, home (50) | DRG 65 ==
LOC: EDBD 08:26 → C.EDB 08:27 → C.2E 11:42 → ENRESERV 11:51
PROVIDERS: ADMIT Family Medicine; ATTEND Internal Medicine
DX: I63.411 Cerebral infarction due to embolism of right middle cerebral artery (principal); E66.01 Morbid (severe) obesity due to excess calories; Z68.41 Body mass index [BMI] 40.0-44.9, adult; R47.01 Aphasia; R53.1 Weakness; I48.2 Chronic atrial fibrillation; Z51.5 Encounter for palliative care; I12.9 Hypertensive chronic kidney disease with stage 1 through stage 4 chronic kidney disease, or unspecified chronic kidney disease; I25.10 Atherosclerotic heart disease of native coronary artery without angina pectoris; N18.3 Chronic kidney disease, stage 3 (moderate); E78.5 Hyperlipidemia, unspecified; K21.9 Gastro-esophageal reflux disease without esophagitis; I49.5 Sick sinus syndrome; R73.03 Prediabetes; N40.0 Benign prostatic hyperplasia without lower urinary tract symptoms; I35.0 Nonrheumatic aortic (valve) stenosis; Z79.82 Long term (current) use of aspirin; Z79.899 Other long term (current) drug therapy; Z87.891 Personal history of nicotine dependence; Z95.0 Presence of cardiac pacemaker; Z88.2 Allergy status to sulfonamides; Z88.5 Allergy status to narcotic agent